=== PATIENT | female | born 1950 | race Caucasian/White ===

== ENCOUNTER → 2017-03-26 | Outpatient (CLI) | payer MEDICARE ==
[2017-03-26 15:37] LABS: Blood Urea Nitrogen 29 mg/dL (7-17); Non-African American GFR(MDRD) >60 (>60 ml/min/1.73 sqM)
--- NOTE | 2017-03-26 17:59 | CT ---
EXAMINATION TYPE: CT abdomen pelvis w con DATE OF EXAM: 03/26/2017 COMPARISON: 05/18/2016 HISTORY: Left lower and right upper abdominal pain with nausea x [address] DLP: 1306.00 mGycm. Automated exposure control for dose reduction was used. TECHNIQUE: Helical acquisition of images was performed from the lung bases through the pelvis. CONTRAST: Performed with Oral Contrast and with IV Contrast, patient injected with 100 mL of Omnipaqu e 300. FINDINGS: LUNG BASES: No significant abnormality is appreciated. LIVER/GB: No significant abnormality is appreciated. PANCREAS: No significant abnormality is seen. SPLEEN: No significant abnormality is seen. ADRENALS: No significant abnormality is seen. KIDNEYS: No significant abnormality is seen. FREE AIR: No free air is visualized. RETROPERITONEAL ADENOPATHY: None visualized REPRODUCTIVE ORGANS: No significant abnormality is seen URINARY BLADDER: No significant abnormality is seen. PELVIC ADENOPATHY: None visualized. OSSEOUS STRUCTURES: No significant abnormality is seen. BOWEL: No significant abnormality is seen. OTHER: Vasculature is unremarkable. IMPRESSION: NO ACUTE PROCESS.
== END | disposition home or self-care (01) ==
LOC: RADCTMAIN 15:04
PROVIDERS: ATTEND Physician Assistant
DX: R10.84 Generalized abdominal pain (principal); Z88.0 Allergy status to penicillin; Z88.1 Allergy status to other antibiotic agents
CPT/HCPCS: 82565; 84520; 74177; 36415; Q9967

== ENCOUNTER → 2017-07-12 | Outpatient (CLI) | payer MEDICARE ==
--- NOTE | 2017-07-16 08:52 | USB ---
Reason for exam: additional evaluation requested from abnormal screening. History: Patient is postmenopausal. US Breast Workup Limited RT Right breast ultrasound includes all four quadrants, the retroareolar region and axilla. Finding demonstrates no cystic or solid lesion seen. These results were verbally communicated with the patient and result sheet given to the patient on 07/12/17. ASSESSMENT: Negative, BI-RAD 1 RECOMMENDATION: Follow-up diagnostic mammogram of the right breast in 6 months.
== END ==
LOC: RADUSWWP 10:20
PROVIDERS: ATTEND Family Medicine
DX: R92.8 Other abnormal and inconclusive findings on diagnostic imaging of breast (principal)

== ENCOUNTER → 2017-08-22 | Outpatient (CLI) | payer MEDICARE ==
[2017-08-22 14:06] LABS: Basophils # (A) 0.1 k/uL (0-0.2); Basophils % (A) 1 %; Eosinophils # (A) 0.2 k/uL (0-0.7); Eosinophils % (A) 2 %; HCT 42.7 % (34.0-46.0); HGB 14.6 gm/dL (11.4-16.0); Lymphocytes # (A) 1.6 k/uL (1.0-4.8); Lymphocytes % (A) 23 %; MCH 29.9 pg (25.0-35.0); MCHC 34.2 g/dL (31.0-37.0); MCV 87.2 fL (80.0-100.0); Mean Platelet Volume 7.8; Monocytes # (A) 0.5 k/uL (0-1.0); Monocytes % (A) 6 %; Neutrophils # (A) 4.8 k/uL (1.3-7.7); Neutrophils % (A) 67 %; Platelet Count 209 k/uL (150-450); RBC 4.89 m/uL (3.80-5.40); RDW 15.8 % (11.5-15.5); WBC 7.2 k/uL (3.8-10.6)
[2017-08-22 15:05] LABS: Erythrocyte Sedimentation Rate 7 mm/hr (0-20)
== END | disposition home or self-care (01) ==
LOC: LABWHC1 13:32
PROVIDERS: ATTEND Physician Assistant
DX: D69.2 Other nonthrombocytopenic purpura (principal)
CPT/HCPCS: 36415; 85025; 85652

== ENCOUNTER → 2018-01-13 | Outpatient (CLI) | payer MEDICARE ==
--- NOTE | 2018-01-13 09:00 | MM ---
Reason for exam: follow-up at short interval from prior study. Last mammogram was performed 7 months ago. History: Patient is postmenopausal. Physical Findings: Nurse did not find any significant physical abnormalities on exam. MG 3D Diag Mammo W/Cad RT CC and MLO view(s) were taken of the right breast. Prior study comparison: June 26, 2017, bilateral MG 3d screening mammo w/cad. July 25, 2005, bilateral screening mammogram w/CAD. The breast tissue is extremely dense which could obscure a lesion on mammography. Focal asymmetry medial CC view is stable. No significant new findings when compared with previous films. These results were verbally communicated with the patient and result sheet given to the patient on 01/13/18. ASSESSMENT: Benign, BI-RAD 2 RECOMMENDATION: Return to routine screening mammogram schedule for both breasts. Back on schedule.
== END | disposition home or self-care (01) ==
LOC: RADMAMWWP 08:11
PROVIDERS: ATTEND Family Medicine
DX: R92.8 Other abnormal and inconclusive findings on diagnostic imaging of breast (principal)
CPT/HCPCS: 77065; G0279; 77061

== ENCOUNTER → 2018-07-01 | Outpatient (CLI) | payer MEDICARE ==
--- NOTE | 2018-07-02 14:25 | MM ---
Reason for exam: screening (asymptomatic). Last mammogram was performed 6 months ago. History: Patient is postmenopausal. Physical Findings: A clinical breast exam by your physician is recommended on an annual basis and results should be correlated with mammographic findings. MG 3D Screening Mammo W/Cad Bilateral CC and MLO view(s) were taken. Prior study comparison: January 13, 2018, right breast MG 3d diag mammo w/cad RT. June 26, 2017, bilateral MG 3d screening mammo w/cad. The breast tissue is heterogeneously dense. This may lower the sensitivity of mammography. No suspicious abnormality. No significant changes when compared with prior studies. ASSESSMENT: Negative, BI-RAD 1 RECOMMENDATION: Routine screening mammogram of both breasts in 1 year.
== END | disposition home or self-care (01) ==
LOC: RADMAMWWP 08:53
PROVIDERS: ATTEND Family Medicine
DX: Z12.31 Encounter for screening mammogram for malignant neoplasm of breast (principal)
CPT/HCPCS: 77063; 77067

== ENCOUNTER → 2019-04-21 | Outpatient (CLI) | payer MEDICARE ==
[2019-04-21 09:09] LABS: Basophils # (A) 0.1 k/uL (0-0.2); Basophils % (A) 1 %; Eosinophils # (A) 0.2 k/uL (0-0.7); Eosinophils % (A) 3 %; HCT 43.5 % (34.0-46.0); HGB 15.3 gm/dL (11.4-16.0); Lymphocytes # (A) 1.7 k/uL (1.0-4.8); Lymphocytes % (A) 26 %; MCH 29.6 pg (25.0-35.0); MCHC 35.2 g/dL (31.0-37.0); Mean Platelet Volume 7.4; Monocytes # (A) 0.4 k/uL (0-1.0); Monocytes % (A) 7 %; Neutrophils # (A) 4.1 k/uL (1.3-7.7); Neutrophils % (A) 62 %; Platelet Count 243 k/uL (150-450); RBC 5.18 m/uL (3.80-5.40); RDW 13.3 % (11.5-15.5); WBC 6.6 k/uL (3.8-10.6)
== END | disposition home or self-care (01) ==
LOC: LABWHC1 07:47
PROVIDERS: ATTEND Midwife
DX: I10 Essential (primary) hypertension (principal)
CPT/HCPCS: 36415; 84443; 85025

== ENCOUNTER 2019-05-27 10:43 | Observation (INO) | payer MEDICARE ==
[2019-05-27 10:48] VITALS: RESP 18
[2019-05-27] MEDS ORDERED: NITROGLYCERIN OINT 1 INCH/GM PACKET TOPICAL STA (11:25)
[2019-05-27] MEDS ORDERED: ASPIRIN 81 MG PO STA (11:25)
--- NOTE | 2019-05-27 11:33 | ED ---
General Adult HPI - General Chief complaint: Recheck/Abnormal Lab/Rx Stated complaint: Abnormal EKG Time Seen by Provider: 05/27/19 11:00 Source: patient, RN notes reviewed Mode of arrival: wheelchair Limitations: no limitations - History of Present Illness Initial comments: Is a 69-year-old female who presents emergency Department complaining of having left-sided chest discomfort for 2 weeks. Patient states the pain never goes away but it waxes and wanes. Patient describes the pain as pressure. Patient states the pain just on the whole left side of her chest down her left arm and up into her left side of her neck. Patient states she does have a history of atrial fibrillation and she was seen in the office and told to come to the emergency department today. Patient was told she was in atrial fibrillation however currently she isn't normal sinus. Patient denies any diaphoretic episodes. Patient states she does have some shortness of breath. Patient denies any recent fever chills or cough. Patient does states she is nauseated and has been for the last couple of weeks. Patient denies any vomiting patient denies any diarrhea per patient denies any abdominal pain. Patient states she has high blood pressure and high cholesterol and has a positive family history of heart disease. Patient denies any calf tenderness or leg swelling - Related Data Home Medications Medication Instructions Recorded Confirmed Albuterol Sulfate [Proair Hfa] 2 puff INHALATION RT-Q6H PRN 06/28/17 05/27/19 Fluticasone/Salmeterol [Advair 1 puff INHALATION RT-BID PRN 06/28/17 05/27/19 250-50 Diskus] Lisinopril-Hctz 20-25 mg 1 tab PO HS 06/28/17 05/27/19 [Zestoretic 20-25] Omeprazole 20 mg PO DAILY PRN 06/28/17 05/27/19 Docusate [Colace] 300 mg PO DAILY 05/27/19 05/27/19 Naproxen Sodium [Aleve] 220 mg PO DAILY PRN 05/27/19 05/27/19 Allergies Allergy/AdvReac Type Severity Reaction Status Date / Time levofloxacin [From Levaquin] Allergy Wheezing Verified 05/27/19 12:28 Penicillins Allergy Wheezing Verified 05/27/19 12:28 Review of Systems ROS Statement: Those systems with pertinent positive or pertinent negative responses have been documented in the HPI. ROS Other: All systems not noted in ROS Statement are negative. Past Medical History Past Medical History: Asthma, GI Bleed History of Any Multi-Drug Resistant Organisms: None Reported Past Surgical History: Hysterectomy Additional Past Surgical History / Comment(s): Hip replacement Past Psychological History: No Psychological Hx Reported Smoking Status: Never smoker Past Alcohol Use History: Occasional Past Drug Use History: None Reported General Exam - General Exam Comments Initial Comments: GENERAL: Patient is well-developed and well-nourished. Patient is nontoxic and well- hydrated and is in mild distress. ENT: Neck is soft and supple. No significant lymphadenopathy is noted. Oropharynx is clear. Moist mucous membranes. Neck has full range of motion without eliciting any pain. EYES: The sclera were anicteric and conjunctiva were pink and moist. Extraocular movements were intact and pupils were equal round and reactive to light. Eyelids were unremarkable. PULMONARY: Unlabored respirations. Good breath sounds bilaterally. No audible rales rhonchi or wheezing was noted. CARDIOVASCULAR: There is a regular rate and rhythm without any murmurs gallops or rubs. Femoral pulses are equal bilaterally ABDOMEN: Soft and nontender with normal bowel sounds. No palpable organomegaly was noted. There is no palpable pulsatile mass. SKIN: Skin is clear with no lesions or rashes and otherwise unremarkable. NEUROLOGIC: Patient is alert and oriented x3. Cranial nerves II through XII are grossly intact. Motor and sensory are also intact. Normal speech, volume and content. Symmetrical smile. MUSCULOSKELETAL: Normal extremities with adequate strength and full range of motion. No lower extremity swelling or edema. No calf tenderness. LYMPHATICS: No significant lymphadenopathy is noted PSYCHIATRIC: Normal psychiatric evaluation. Limitations: no limitations Course Vital Signs 05/27/19 10:45 Temperature 97.8 F Pulse Rate 78 Respiratory 18 Rate Blood Pressure 199/82 O2 Sat by Pulse 98 Oximetry Medical Decision Making - Medical Decision Making EKG shows normal sinus rhythm at 70 bpm [place] interval is on a 54 QRS is 84 QT interval 416 QTC is 474. Patient's EKG shows no ST segment elevation. Patient's chest x-ray showed no acute abnormality. Because the patient symptoms I started her on heparin. I spoke with Dr. Bedolla he agreed to admit the patient admitted the patient wrote admitting orders. I consult to cardiology. I continued heparin and aspirin and Nitropaste on the floor. - Lab Data Result diagrams: 05/27/19 11:10 05/27/19 11:10 Lab Results 05/27/19 05/27/19 05/27/19 Range/Units 11:10 11:10 11:10 WBC 7.2 (3.8-10.6) k/uL RBC 5.22 (3.80-5.40) m/uL Hgb 15.2 (11.4-16.0) gm/dL Hct 44.8 (34.0-46.0) % MCV 85.8 (80.0-100.0) fL MCH 29.1 (25.0-35.0) pg MCHC 34.0 (31.0-37.0) g/dL RDW 13.3 (11.5-15.5) % Plt Count 235 (150-450) k/uL Neutrophils % 74 % Lymphocytes % 17 % Monocytes % 5 % Eosinophils % 2 % Basophils % 1 % Neutrophils # 5.3 (1.3-7.7) k/uL Lymphocytes # 1.2 (1.0-4.8) k/uL Monocytes # 0.4 (0-1.0) k/uL Eosinophils # 0.2 (0-0.7) k/uL Basophils # 0.1 (0-0.2) k/uL PT 9.6 (9.0-12.0) sec INR 0.9 (<1.2) APTT 23.7 (22.0-30.0) sec Sodium 141 (137-145) mmol/L Potassium 3.7 (3.5-5.1) mmol/L Chloride 105 (98-107) mmol/L Carbon Dioxide 27 (22-30) mmol/L Anion Gap 9 mmol/L BUN 24 H (7-17) mg/dL Creatinine 0.88 (0.52-1.04) mg/dL Est GFR (CKD-EPI)AfAm 78 (>60 ml/min/1.73 sqM) Est GFR (CKD-EPI)NonAf 67 (>60 ml/min/1.73 sqM) Glucose 93 (74-99) mg/dL Calcium 9.9 (8.4-10.2) mg/dL Magnesium 2.2 (1.6-2.3) mg/dL Total Bilirubin 0.5 (0.2-1.3) mg/dL AST 20 (14-36) U/L ALT 33 (9-52) U/L Alkaline Phosphatase 111 (38-126) U/L Troponin I (0.000-0.034) ng/mL Total Protein 7.1 (6.3-8.2) g/dL Albumin 4.6 (3.5-5.0) g/dL 05/27/19 Range/Units 11:10 WBC (3.8-10.6) k/uL RBC (3.80-5.40) m/uL Hgb (11.4-16.0) gm/dL Hct (34.0-46.0) % MCV (80.0-100.0) fL MCH (25.0-35.0) pg MCHC (31.0-37.0) g/dL RDW (11.5-15.5) % Plt Count (150-450) k/uL Neutrophils % % Lymphocytes % % Monocytes % % Eosinophils % % Basophils % % Neutrophils # (1.3-7.7) k/uL Lymphocytes # (1.0-4.8) k/uL Monocytes # (0-1.0) k/uL Eosinophils # (0-0.7) k/uL Basophils # (0-0.2) k/uL PT (9.0-12.0) sec INR (<1.2) APTT (22.0-30.0) sec Sodium (137-145) mmol/L Potassium (3.5-5.1) mmol/L Chloride (98-107) mmol/L Carbon Dioxide (22-30) mmol/L Anion Gap mmol/L BUN (7-17) mg/dL Creatinine (0.52-1.04) mg/dL Est GFR (CKD-EPI)AfAm (>60 ml/min/1.73 sqM) Est GFR (CKD-EPI)NonAf (>60 ml/min/1.73 sqM) Glucose (74-99) mg/dL Calcium (8.4-10.2) mg/dL Magnesium (1.6-2.3) mg/dL Total Bilirubin (0.2-1.3) mg/dL AST (14-36) U/L ALT (9-52) U/L Alkaline Phosphatase (38-126) U/L Troponin I <0.012 (0.000-0.034) ng/mL Total Protein (6.3-8.2) g/dL Albumin (3.5-5.0) g/dL Critical Care Time Critical Care Time: Yes Total Critical Care Time: 35 Disposition Clinical Impression: Unstable angina Disposition: ADMITTED IP TO THIS HOSP Referrals: Rohith Bedolla MD [Primary Care Provider] - 1-2 days Time of Disposition: 13:06
[2019-05-27 11:42] LABS: Basophils # (A) 0.1 k/uL (0-0.2); Basophils % (A) 1 %; Eosinophils # (A) 0.2 k/uL (0-0.7); Eosinophils % (A) 2 %; HCT 44.8 % (34.0-46.0); HGB 15.2 gm/dL (11.4-16.0); Lymphocytes # (A) 1.2 k/uL (1.0-4.8); Lymphocytes % (A) 17 %; MCH 29.1 pg (25.0-35.0); MCV 85.8 fL (80.0-100.0); Mean Platelet Volume 7.3; Monocytes # (A) 0.4 k/uL (0-1.0); Monocytes % (A) 5 %; Neutrophils # (A) 5.3 k/uL (1.3-7.7); Neutrophils % (A) 74 %; Platelet Count 235 k/uL (150-450); RBC 5.22 m/uL (3.80-5.40); RDW 13.3 % (11.5-15.5); WBC 7.2 k/uL (3.8-10.6)
[2019-05-27 11:49] LABS: INR 0.9 (<1.2); Partial Thromboplastin Time 23.7 sec (22.0-30.0); Prothrombin Time 9.6 sec (9.0-12.0)
--- NOTE | 2019-05-27 11:53 | XR ---
EXAMINATION TYPE: XR chest 2V DATE OF EXAM: 05/27/2019 COMPARISON: August 09, 2014 HISTORY: Shortness of breath TECHNIQUE: Frontal and lateral views of the chest are obtained. FINDINGS: Scattered senescent parenchymal changes noted. Hyperinflation compatible with COPD. No evidence for infiltrate. No evidence for atelectasis. Heart size is stable. Mediastinal structures are stable and grossly unremarkable. No evidence for hilar prominence. Degenerative changes dorsal spine. IMPRESSION: 1. No evidence for acute pulmonary disease.
[2019-05-27 12:06] LABS: Albumin 4.6 g/dL (3.5-5.0); Calcium 9.9 mg/dL (8.4-10.2); Magnesium 2.2 mg/dL (1.6-2.3); Potassium 3.7 mmol/L (3.5-5.1); Total Bilirubin 0.5 mg/dL (0.2-1.3); Total Protein 7.1 g/dL (6.3-8.2)
[2019-05-27] MEDS ORDERED: HEPARIN SODIUM,PORCINE 5,000 UNIT/ML 1 ML VIAL IV ONE (13:04)
[2019-05-27] MEDS ORDERED: NITROGLYCERIN SL TABS 0.4 MG TAB SUBLINGUAL PRN (13:06)
[2019-05-27] MEDS ORDERED: HEPARIN SOD,PORK IN 0.45% NACL 25,000 UNIT in 0.45% NACL 1 250ML.BAG IV SCH (13:15)
[2019-05-27] MEDS ORDERED: ALBUTEROL NEBULIZED 2.5 MG/3 ML INHALATION PRN (15:28)
[2019-05-27] MEDS ORDERED: PANTOPRAZOLE 40 MG TABLET PO PRN (15:28)
[2019-05-27] MEDS: NITROGLYCERIN OINT 1 INCH/GM PACKET TOPICAL SCH (18:31)
[2019-05-27] MEDS ORDERED: LISINOPRIL-HCTZ 20-25 MG 1 EACH TAB PO SCH (21:00)
[2019-05-28] MEDS: NITROGLYCERIN OINT 1 INCH/GM PACKET TOPICAL SCH ×2 (00:29→05:24)
[2019-05-28 06:03] LABS: Cholesterol 212 mg/dL (<200); HDL Cholesterol 35 mg/dL (40-60); LDL Cholesterol,Calculated 145 mg/dL (0-99); Triglycerides 160 mg/dL (<150)
[2019-05-28] MEDS ORDERED: ASPIRIN 325 MG TAB PO SCH (09:00)
[2019-05-28] MEDS ORDERED: DOCUSATE 100 MG CAP PO SCH (09:00)
[2019-05-28] MEDS ORDERED: ASPIRIN 81 MG PO SCH (09:00)
[2019-05-28] MEDS ORDERED: ATORVASTATIN 40 MG TAB PO SCH (11:00)
--- NOTE | 2019-05-28 11:00 | P.CRDCN ---
History of Present Illness History of present illness: This is a pleasant 69-year-old female past medical history significant for hypertension, gastroesophageal reflux disease, dyslipidemia, asthma and family history of premature coronary artery disease and her father having his first RI in his 40s and ultimately causing his in his early 60s. She denies personal history of coronary artery disease. She has undergone a stress test in the past in 2016 which was negative for stress-induced ischemia. We have been asked to see her in consultation secondary to chest discomfort. She states for the previous 2 weeks she has been experiencing persistent discomfort and heaviness in the left precordial region with radiation to the left shoulder and down the left arm associated with nausea. Symptoms are not exacerbated by activity or exertion in fact she did some leaf blowing in the yard and her pain remained constant with no worsening. She denies associated shortness of breath, dizziness or palpitations. She initially presented to her primary care physician office yesterday regarding the nausea. She had an EKG performed at the office which was abnormal and was sent to the hospital for further evaluation. EKG upon arrival revealed sinus mechanism heart rate [address] changes in the inferior lateral leads. Compared to previous EKGs this is chronic. Chest x-ray is negative for acute cardiopulmonary process. Laboratory data reviewed, CBC unremarkable, cardiac enzymes negative 3, sodium 141, potassium 3.7, creatinine 0.88, magnesium 2.2, LDL 145, HDL 35 and total cholesterol 212. Current daily cardiac medications include lisinopril/HCTZ 20/25 mg daily. She is aware of her dyslipidemia and has been attempting lifestyle modifications. At the time of my exam: CONSTITUTIONAL: Denies fever. Denies chills. EYES: Denies blurred vision. Denies vision changes. Denies eye pain. EARS, NOSE, MOUTH & THROAT: Denies headache. Denies sore throat. Denies ear pain. CARDIOVASCULAR: Denies chest pain. Denies shortness of breath. Denies orthopnea. Denies PND. Denies palpitations. RESPIRATORY: Denies cough. GASTROINTESTINAL: Denies abdominal pain. Denies diarrhea. Denies constipation. Denies nausea. Denies vomiting. MUSCULOSKELETAL: Denies myalgias. INTEGUMENTARY: Denies pruitis. Denies rash. NEUROLOGIC: Denies numbness. Denies tingling. Denies weakness. PSYCHIATRIC: Denies anxiety. Denies depression. ENDOCRINE: Denies fatigue. Denies weight change. Denies polydipsia. Denies polyurina. GENITOURINARY: Denies burning, hematuria or urgency with micturation. HEMATOLOGIC: Denies history of anemia. Denies bleeding. Blood pressure 148/70 heart rate 61 afebrile maintaining oxygen saturation on r oom air GENERAL: This is a 69-year-old female in no apparent distress at the time of my examination. HEENT: Head is atraumatic, normocephalic. Pupils are equal, round. Sclerae anicteric. Conjunctivae are clear. Mucous membranes of the mouth are moist. Neck is supple. There is no jugular venous distention. No carotid bruit is heard. LUNGS: Clear to auscultation no wheezes, rales or rhonchi. No chest wall tenderness is noted on palpation or with deep breathing. HEART: Regular rate and rhythm without murmurs, rubs or gallops. S1 and S2 heard. ABDOMEN: Soft, nontender. Bowel sounds are heard. No organomegaly noted. EXTREMITIES: No evidence of peripheral edema and no calf tenderness noted. VASCULAR: Radial and dorsalis pedis pulses palpated, no evidence of clubbing. NEUROLOGIC: Patient is awake, alert and oriented x3. ASSESSMENT Chest pain, atypical for angina. An acute coronary event has been ruled out. Hypertension Dyslipidemia Family history of premature coronary artery disease PLAN An acute coronary event has been ruled out. Discontinue heparin infusion and Nitropaste. Obtain 2-D echocardiogram and Doppler study to assess cardiac structure and function. Recommend Cardiolite stress test to assess for reversible cardiac ischemia. Initiate on atorvastatin 40 mg daily for target LDL of less than 100. If stress test is abnormal we will consider coronary angiography. Consider imaging of the abdomen if stress test is normal to assess nausea. Thank you kindly for this consultation. Nurse Practitioner note has been reviewed, I agree with a documented findings and plan of care. Patient was seen and examined. Past Medical History Past Medical History: Asthma, GERD/Reflux, GI Bleed, Hearing Disorder / Deafness, Hyperlipidemia, Hypertension, Pneumonia Additional Past Medical History / Comment(s): Pt not on rx for cholesterol yet, pneumonia as a child, lower GI bleed twice, gastritis, duodenitis, hiatal hernia, colitis, constipation, UTIs, tinnitis L ear. History of Any Multi-Drug Resistant Organisms: None Reported Past Surgical History: Hysterectomy, Orthopedic Surgery Additional Past Surgical History / Comment(s): R hip partial replacement, EGD, colonoscopies Past Anesthesia/Blood Transfusion Reactions: No Reported Reaction Past Psychological History: No Psychological Hx Reported Additional Psychological History / Comment(s): Pt resides with her spouse. She is independent. Smoking Status: Never smoker Past Alcohol Use History: Occasional Past Drug Use History: None Reported - Past Family History Father Family Medical History: Myocardial Infarction (RI) Additional Family Medical History / Comment(s): Father had 3 MIs. First RI while in his 40s and his last RI at the age of 61 from which he . Mother Family Medical History: Cancer Additional Family Medical History / Comment(s): Mother of liver cancer at the age of 51yrs. Medications and Allergies Home Medications Medication Instructions Recorded Confirmed Type Albuterol Sulfate [Proair Hfa] 2 puff INHALATION RT-Q6H PRN 06/28/17 05/27/19 History Fluticasone/Salmeterol [Advair 1 puff INHALATION RT-BID PRN 06/28/17 05/27/19 History 250-50 Diskus] Lisinopril-Hctz 20-25 mg 1 tab PO HS 06/28/17 05/27/19 History [Zestoretic 20-25] Omeprazole 20 mg PO DAILY PRN 06/28/17 05/27/19 History Docusate [Colace] 300 mg PO DAILY 05/27/19 05/27/19 History Naproxen Sodium [Aleve] 220 mg PO DAILY PRN 05/27/19 05/27/19 History Allergies Allergy/AdvReac Type Severity Reaction Status Date / Time levofloxacin [From Levaquin] Allergy Wheezing Verified 05/27/19 12:28 Penicillins Allergy Wheezing Verified 05/27/19 12:28 Physical Exam Vitals: Vital Signs Temp Pulse Pulse Resp BP BP Pulse Ox 05/28/19 08:00 61 18 05/28/19 07:30 97.7 F 61 18 148/70 98 05/28/19 04:00 98.2 F 63 18 120/69 97 05/28/19 00:00 97.6 F 67 18 114/58 94 L 05/27/19 19:54 98.4 F 71 18 119/57 95 05/27/19 19:45 71 16 05/27/19 16:00 70 18 144/74 05/27/19 14:25 97.8 F 71 18 187/73 97 05/27/19 14:24 18 05/27/19 13:27 74 18 143/76 96 Intake and Output 05/27/19 05/28/19 05/28/19 22:59 06:59 14:59 Intake Total 240 161.026 Balance 240 161.026 Intake: Intake, IV Titration 161.026 Amount Heparin Sod,Pork in 0.45% 161.026 NaCl 25,000 unit In 0.45 % NaCl 1 250ml.bag @ 12 UNITS/KG/HR 9.362 mls/hr IV .Q24H ELISHA Rx#: [id number] Oral 240 Other: Voiding Method Toilet Toilet Toilet # Voids 1 Results 05/27/19 11:10 05/27/19 11:10 Cardiac Enzymes 05/27/19 05/27/19 05/27/19 Range/Units 11:10 11:10 19:23 AST 20 (14-36) U/L Troponin I <0.012 <0.012 (0.000-0.034) ng/mL 05/27/19 Range/Units 22:36 AST (14-36) U/L Troponin I <0.012 (0.000-0.034) ng/mL Coagulation 05/27/19 05/27/19 05/28/19 Range/Units 11:10 19:23 05:45 PT 9.6 (9.0-12.0) sec APTT 23.7 49.4 H 42.2 H (22.0-30.0) sec Lipids 05/28/19 Range/Units 05:45 Triglycerides 160 H (<150) mg/dL Cholesterol 212 H (<200) mg/dL HDL Cholesterol 35 L (40-60) mg/dL CBC 05/27/19 Range/Units 11:10 WBC 7.2 (3.8-10.6) k/uL RBC 5.22 (3.80-5.40) m/uL Hgb 15.2 (11.4-16.0) gm/dL Hct 44.8 (34.0-46.0) % Plt Count 235 (150-450) k/uL Comprehensive Metabolic Panel 05/27/19 Range/Units 11:10 Sodium 141 (137-145) mmol/L Potassium 3.7 (3.5-5.1) mmol/L Chloride 105 (98-107) mmol/L Carbon Dioxide 27 (22-30) mmol/L BUN 24 H (7-17) mg/dL Creatinine 0.88 (0.52-1.04) mg/dL Glucose 93 (74-99) mg/dL Calcium 9.9 (8.4-10.2) mg/dL AST 20 (14-36) U/L ALT 33 (9-52) U/L Alkaline Phosphatase 111 (38-126) U/L Total Protein 7.1 (6.3-8.2) g/dL Albumin 4.6 (3.5-5.0) g/dL Current Medications Generic Name Dose Route Start Last Admin Trade Name Freq PRN Reason Stop Dose Admin Albuterol Sulfate 2.5 mg 05/27/19 15:28 Ventolin Nebulized INHALATION RT-Q6H PRN Shortness Of Breath Aspirin 81 mg 05/28/19 09:00 Aspirin PO DAILY [facility] Atorvastatin Calcium 40 mg 05/28/19 11:00 Lipitor PO DAILY [facility] Docusate Sodium 300 mg 05/28/19 09:00 Colace PO DAILY [facility] Lisinopril/HCTZ 1 each 05/27/19 21:00 05/27/19 21:01 Zestoretic 20-25 PO 1 each HS ELISHA Administration Nitroglycerin 0.4 mg 05/27/19 13:06 Nitrostat SUBLINGUAL Q5M PRN Chest Pain Pantoprazole Sodium 40 mg 05/27/19 15:28 Protonix PO DAILY PRN GERD Intake and Output 05/27/19 05/28/19 05/28/19 22:59 06:59 14:59 Intake Total 240 161.026 Balance 240 161.026 Intake: Intake, IV Titration 161.026 Amount Heparin Sod,Pork in 0.45% 161.026 NaCl 25,000 unit In 0.45 % NaCl 1 250ml.bag @ 12 UNITS/KG/HR 9.362 mls/hr IV .Q24H ELISHA Rx#: [id number] Oral 240 Other: Voiding Method Toilet Toilet Toilet # Voids 1 05/27/19 11:10 05/27/19 11:10
[2019-05-28 12:25] VITALS: BP 153/87; PULSE 87; TEMP 98.3
--- NOTE | 2019-05-28 12:36 | NM ---
EXAMINATION TYPE: NM stress cardiolite complete DATE OF EXAM: 05/28/2019 COMPARISON: NONE HISTORY: Chest pain TECHNIQUE: After the intravenous administration of 10.81 mCi Tc 99m Sestamibi - Rest images obtained 45 minutes post injection. The patient exercised using a LISA protocol and 1 minute prior to peak exercise was injected with 26.8 mCi Tc 99m Sestamibi - Stress images obtained 20 minutes post inject ion. FINDINGS: Targeted heart rate was achieved during performance of the study. Review of stress and rest SPECT jacek ges demonstrates no distinct perfusion abnormality. Gated analysis shows normal wall motion with an estimated left ventricular ejection fraction of 69 %. TID is within normal limits calculated at 0.78. IMPRESSION: No scintigraphic evidence for reversible ischemia
--- NOTE | 2019-05-28 12:44 | P.HPIM ---
History of Present Illness 69-year-old female was sent from her physician's office with complaints of intermittent chest pain for 2 weeks with nausea. Radiates to the left arm. Patient does admit history of IBS states she's had trouble with constipation of late Review of Systems Cardiovascular: Reports chest pain Gastrointestinal: Reports constipation, Reports nausea Past Medical History Past Medical History: Asthma, GERD/Reflux, GI Bleed, Hearing Disorder / Deafness, Hyperlipidemia, Hypertension, Pneumonia Additional Past Medical History / Comment(s): Pt not on rx for cholesterol yet, pneumonia as a child, lower GI bleed twice, gastritis, duodenitis, hiatal hernia, colitis, constipation, UTIs, tinnitis L ear. History of Any Multi-Drug Resistant Organisms: None Reported Past Surgical History: Hysterectomy, Orthopedic Surgery Additional Past Surgical History / Comment(s): R hip partial replacement, EGD, colonoscopies Past Anesthesia/Blood Transfusion Reactions: No Reported Reaction Past Psychological History: No Psychological Hx Reported Additional Psychological History / Comment(s): Pt resides with her spouse. She is independent. Smoking Status: Never smoker Past Alcohol Use History: Occasional Past Drug Use History: None Reported - Past Family History Father Family Medical History: Myocardial Infarction ([place]) Additional Family Medical History / Comment(s): Father had 3 MIs. First [place] while in his 40s and his last [place] at the age of 61 from which he . Mother Family Medical History: Cancer Additional Family Medical History / Comment(s): Mother of liver cancer at the age of 51yrs. Medications and Allergies Home Medications Medication Instructions Recorded Confirmed Type Albuterol Sulfate [Proair Hfa] 2 puff INHALATION RT-Q6H PRN 06/28/17 05/27/19 History Fluticasone/Salmeterol [Advair 1 puff INHALATION RT-BID PRN 06/28/17 05/27/19 History 250-50 Diskus] Lisinopril-Hctz 20-25 mg 1 tab PO HS 06/28/17 05/27/19 History [Zestoretic 20-25] Omeprazole 20 mg PO DAILY PRN 06/28/17 05/27/19 History Docusate [Colace] 300 mg PO DAILY 05/27/19 05/27/19 History Naproxen Sodium [Aleve] 220 mg PO DAILY PRN 05/27/19 05/27/19 History Allergies Allergy/AdvReac Type Severity Reaction Status Date / Time levofloxacin [From Levaquin] Allergy Wheezing Verified 05/27/19 12:28 Penicillins Allergy Wheezing Verified 05/27/19 12:28 Physical Exam Vitals: Vital Signs Temp Pulse Pulse Resp BP BP Pulse Ox 05/28/19 12:24 98.3 F 87 18 153/87 96 05/28/19 08:00 61 18 05/28/19 07:30 97.7 F 61 18 148/70 98 05/28/19 04:00 98.2 F 63 18 120/69 97 05/28/19 00:00 97.6 F 67 18 114/58 94 L 05/27/19 19:54 98.4 F 71 18 119/57 95 05/27/19 19:45 71 16 05/27/19 16:00 70 18 144/74 05/27/19 14:25 97.8 F 71 18 187/73 97 05/27/19 14:24 18 05/27/19 13:27 74 18 143/76 96 Intake and Output 05/27/19 05/28/19 05/28/19 22:59 06:59 14:59 Intake Total 240 161.026 Balance 240 161.026 Intake: Intake, IV Titration 161.026 Amount Heparin Sod,Pork in 0.45% 161.026 NaCl 25,000 unit In 0.45 % NaCl 1 250ml.bag @ 12 UNITS/KG/HR 9.362 mls/hr IV .Q24H ELISHA Rx#: [id number] Oral 240 Other: Voiding Method Toilet Toilet Toilet # Voids 1 Weight 78.018 kg - Constitutional General appearance: mild distress - EENT Eyes: PERRLA Ears: bilateral: normal - Neck Neck: normal ROM - Respiratory Respiratory: negative: CTA - Cardiovascular Rhythm: regular - Gastrointestinal General gastrointestinal: soft Localized gastrointestinal: tender: LLQ - Integumentary Integumentary: normal - Neurologic Neurologic: CNII-XII intact - Musculoskeletal Musculoskeletal: gait normal - Psychiatric Psychiatric: A&O x's 3, appropriate affect, intact judgment & insight Results CBC & Chem 7: 05/27/19 11:10 05/27/19 11:10 Labs: Abnormal Lab Results - Last 24 Hours (Table) 05/27/19 05/28/19 05/28/19 Range/Units 19:23 05:45 05:45 APTT 49.4 H 42.2 H (22.0-30.0) sec Triglycerides 160 H (<150) mg/dL Cholesterol 212 H (<200) mg/dL LDL Cholesterol, Calc 145 H (0-99) mg/dL HDL Cholesterol 35 L (40-60) mg/dL Chest x-ray: report reviewed Thrombosis Risk Factor Assmnt - Choose All That Apply Any of the Below Risk Factors Present?: Yes Other Risk Factors: Yes Each Risk Factor Represents 2 Points: Age 61-74 years Other congenital or acquired thrombophilia - If yes, enter type in comment: No Thrombosis Risk Factor Assessment Total Risk Factor Score: 2 Thrombosis Risk Factor Assessment Level: Low Risk Assessment and Plan Plan: Assessment Chest pain troponins negative 3 Abdominal pain with nausea History of asthma/COPD Hypertension GERD Hyperlipidemia IVS Hiatal hernia Plan Patient has had stress test awaiting results if negative will do outpatient treatment for abdominal pain
[2019-05-28 13:34] VITALS: BMI 25.4
--- NOTE | 2019-05-28 13:38 | ECHOF ---
Referral Reason:cp MEASUREMENTS -------- HEIGHT: 175.3 cm WEIGHT: 78.0 kg BP: 148/70 RVIDd: 3.0 cm (< 3.3) IVSd: 1.4 cm (0.6 - 1.1) LVIDd: 4.7 cm (3.9 - 5.3) LVPWd: 1.1 cm (0.6 - 1.1) IVSs: 1.7 cm LVIDs: 2.7 cm LVPWs: 1.9 cm LAESV Index (A-L): 24.18 ml/m Ao Diam: 2.5 cm (2.0 - 3.7) AV Cusp: 1.6 cm (1.5 - 2.6) MV EXCURSION: 12.108 mm (> 18.000) MV EF SLOPE: 65 mm/s (70 - 150) EPSS: 0.5 cm MV E Adnois: 0.52 m/s MV DecT: 224 ms MV A Adonis: 0.73 m/s MV E/A Ratio: 0.71 AR PHT: 415 ms RAP: 5.00 mmHg RVSP: 20.63 mmHg FINDINGS -------- Sinus rhythm. This was a technically adequate study. The left ventricular size is normal. There is mild concentric left ventricular hypertrophy. Overa ll left ventricular systolic function is normal with, an EF between 55 - 60 %. The diastolic fillin g pattern is normal for the age of the patient 11.91. The right ventricle is normal in size. The left atrial size is normal. The right atrial size is normal. Interatrial and interventricular septum intact. The aortic valve was not well visualized. There is mild aortic valve sclerosis. There is moderate -to-severe aortic regurgitation. The aortic pressure half-time by doppler is 415ms. No mitral regurgitation. Trace tricuspid regurgitation present. There is no evidence of pulmonary hypertension. The right ventricular systolic pressure, as measured by Doppler, is 20.63mmHg. The pulmonic valve was not well visualized. There is no pulmonic regurgitation present. The aortic root size is normal. There is no pericardial effusion. CONCLUSIONS -------- 1. Sinus rhythm. 2. This was a technically adequate study. 3. The left ventricular size is normal. 4. There is mild concentric left ventricular hypertrophy. 5. Overall left ventricular systolic function is normal with, an EF between 55 - 60 %. 6. The diastolic filling pattern is normal for the age of the patient 11.91 7. The right ventricle is normal in size. 8. The left atrial size is normal. 9. The right atrial size is normal. 10. Interatrial and interventricular septum intact. 11. The aortic valve was not well visualized. 12. There is mild aortic valve sclerosis. 13. There is [id number] aortic regurgitation. 14. The aortic pressure half-time by doppler is 415ms. 15. No mitral regurgitation. 16. Trace tricuspid regurgitation present. 17. There is no evidence of pulmonary hypertension. 18. The right ventricular systolic pressure, as measured by Doppler, is 20.63mmHg. 19. The pulmonic valve was not well visualized. 20. There is no pulmonic regurgitation present. 21. The aortic root size is normal. 22. There is no pericardial effusion. NOCTURNIST PHYSICIAN: Lottie Krause RDCS
--- NOTE | 2019-05-28 13:44 | EST ---
EXERCISE STRESS DATE OF SERVICE: May 28, 2019 AGE: 69 SEX: Female HT: 69" WT: 172 pounds PROTOCOL: Isidro Cardiolite STAGE: III DURATION OF EXERCISE: 8 minutes HEART RATE REST: 76 BLOOD PRESSURE REST: 160/74 MAXIMUM HEART RATE ACHIEVED: 130 MAXIMUM BLOOD PRESSURE: 178/76 85% MPHR: 128 100% MPHR: 150 METS: 8.2 INDICATIONS: Chest pain. CLINICAL INFORMATION: STRESS DATA: Heart rate 76, pressure is 160/74 mmHg. The patient exercised on the treadmill according to Isidro protocol for a total of 8 minutes and achieved 8.2 METs. Max heart rate was 130, which is about 86% of maximum predicted heart rate. Maximum blood pressure was 178/76 mmHg. Clinically, the patient did not have any symptoms of chest pain or chest discomfort. The EKG showed about [address]-segment changes. CONCLUSION: 1. Excellent exercise tolerance. 2. Mild EKG changes in response to exercise with about [address]-segment depression. 3. Please follow up on the Cardiolite portion on separate report from Radiology Department. MMODL / IJN: [id number] /
--- NOTE | 2019-05-28 17:45 | P.DS ---
Providers Date of admission: 05/27/19 13:06 Expected date of discharge: 05/28/19 Attending physician: Roihth Bedolla Consults: 05/27/19 13:06 Consult Physician Urgent Consulting Provider: [facility] Consult Reason/Comments: Unstable angina Do you want consulting provider notified?: Yes Primary care physician: Rohith Bedolla [facility] Course: 69-year-old female was sent to the emergency room from [facility]] for complaints of chest pain. EKG in office atrial flutter. Patient was evaluated by cardiology stress test negative for ischemic disease. Patient was complaining of chronic low abdominal pain offered CT the abdomen patient declined at this time we'll discuss at follow-up visit Assessment Chest pain negative troponin negative stress test History of asthma/COPD Hypertension GERD Hyperlipidemia IBS Hiatal hernia Plan Follow-up with family physician Dr. Rohith Bedolla and cardiology Plan - Discharge Summary Discharge Rx Participant: No New Discharge Prescriptions: New Aspirin 81 mg PO DAILY chew Atorvastatin [Lipitor] 40 mg PO DAILY #30 tab Ondansetron HCl [Zofran] 4 mg PO TID PRN #21 tablet PRN Reason: Nausea Continue Omeprazole 20 mg PO DAILY PRN PRN Reason: GERD Albuterol Sulfate [Proair Hfa] 2 puff INHALATION RT-Q6H PRN PRN Reason: Shortness Of Breath Lisinopril-Hctz 20-25 mg [Zestoretic 20-25] 1 tab PO HS Fluticasone/Salmeterol [Advair 250-50 Diskus] 1 puff INHALATION RT-BID PRN PRN Reason: Shortness Of Breath Docusate [Colace] 300 mg PO DAILY Discontinued Naproxen Sodium [Aleve] 220 mg PO DAILY PRN PRN Reason: Pain Discharge Medication List Albuterol Sulfate [Proair Hfa] 2 puff INHALATION RT-Q6H PRN 06/28/17 [History] Fluticasone/Salmeterol [Advair 250-50 Diskus] 1 puff INHALATION RT-BID PRN 06/28/17 [History] Lisinopril-Hctz 20-25 mg [Zestoretic 20-25] 1 tab PO HS 06/28/17 [History] Omeprazole 20 mg PO DAILY PRN 06/28/17 [History] Docusate [Colace] 300 mg PO DAILY 11/06/19 [History] Aspirin 81 mg PO DAILY chew 05/28/19 [Rx] Atorvastatin [Lipitor] 40 mg PO DAILY #30 tab 05/28/19 [Rx] Ondansetron HCl [Zofran] 4 mg PO TID PRN #21 tablet 05/28/19 [Rx] Follow up Appointment(s)/Referral(s): Rohith Bedolla MD [Primary Care Provider] - 1-2 days Feroz Berg MD [STAFF PHYSICIAN] - 2 Weeks Discharge Disposition: HOME SELF-CARE
== END 2019-05-28 15:05 | disposition home or self-care (01) ==
LOC: EC 10:43 → 1SOBS 13:06
PROVIDERS: ADMIT Family Medicine; ATTEND Family Medicine
DX: R07.89 Other chest pain (principal); J44.9 Chronic obstructive pulmonary disease, unspecified; I48.91 Unspecified atrial fibrillation; I48.92 Unspecified atrial flutter; I10 Essential (primary) hypertension; K21.9 Gastro-esophageal reflux disease without esophagitis; E78.5 Hyperlipidemia, unspecified; G89.29 Other chronic pain; R11.0 Nausea; R10.30 Lower abdominal pain, unspecified; K44.9 Diaphragmatic hernia without obstruction or gangrene; K58.1 Irritable bowel syndrome with constipation; E78.00 Pure hypercholesterolemia, unspecified; H91.90 Unspecified hearing loss, unspecified ear; H93.12 Tinnitus, left ear; Z79.1 Long term (current) use of non-steroidal anti-inflammatories (NSAID); Z79.51 Long term (current) use of inhaled steroids; Z79.899 Other long term (current) drug therapy; Z88.0 Allergy status to penicillin; Z88.1 Allergy status to other antibiotic agents; Z87.440 Personal history of urinary (tract) infections; Z87.01 Personal history of pneumonia (recurrent); Z96.641 Presence of right artificial hip joint; Z87.19 Personal history of other diseases of the digestive system; Z90.710 Acquired absence of both cervix and uterus; Z82.49 Family history of ischemic heart disease and other diseases of the circulatory system; Z80.0 Family history of malignant neoplasm of digestive organs
CPT/HCPCS: 96366 ×2; 96376; 96365; 99291; 36415; 93005; 93017; 93306; 80061; 80053; 83735; 84484; 85025; 85610; 85730 ×2; 71046; 78452; G0378 ×2; A9500; J1644 ×2

== ENCOUNTER → 2020-05-26 | Outpatient (CLI) | payer MEDICARE ==
--- NOTE | 2020-05-26 15:29 | CT ---
EXAMINATION TYPE: CT abdomen pelvis wo/w con DATE OF EXAM: 05/26/2020 COMPARISON: 06/28/2017 HISTORY: 70-year-old female Abdominal pain, nausea TECHNIQUE: Contiguous axial scanning of the abdomen and pelvis before and after administration of 100 ml Isovue 300 IV contrast. Delayed images through the kidneys and coronal/sagittal reconstructions performed. CT DLP: 1280.4 mGycm Automated exposure control for dose reduction was used. FINDINGS: Heart normal size without pericardial effusion. Mild dependent atelectasis in the visualized lung bas es. No pleural effusion. Small hiatal hernia. No focal liver lesion or biliary ductal dilatation. Portal venous system is patent. Gallbladder, adrenal glands, right kidney, spleen, and pancreas appear within normal limits. Cortical hypodensities within the left kidney measuring up to 1.3 cm, too small for accurate CT ministerio cterization, likely cortical cysts. No dilated small bowel, free fluid, or free air. No mesenteric or retroperitoneal lymphadenopathy. Ileocecal junction is located in the right-sided pelvis. Scattered mild to moderate stool. No pericol onic inflammatory change. Bladder is urine distended. Uterus surgically absent. Neither ovary is visualized. Prominent metal ar tifact limiting visualization of portions of the pelvis. No abnormal fluid collection identified in t he pelvis or pelvic lymphadenopathy. Bones: Right hip total arthroplasty. Moderate degenerative change left hip. Moderate to advanced dege nerative disc disease throughout the lumbar spine along with hypertrophic facet arthropathy and grade 1 anterolisthesis at L3-L4. IMPRESSION: SMALL HIATAL HERNIA, SMALL CORTICAL CYSTS IN THE LEFT KIDNEY MEASURING UP TO 1.3 CM, AND MILD TO MODE RATE STOOL. NO ACUTE INFLAMMATORY PROCESS IDENTIFIED IN THE ABDOMEN OR PELVIS TO EXPLAIN THE PATIENT' S SYMPTOMS.
== END | disposition home or self-care (01) ==
LOC: RADCTMAIN 13:04
PROVIDERS: ATTEND Nurse Practitioner
DX: K44.9 Diaphragmatic hernia without obstruction or gangrene (principal); N28.1 Cyst of kidney, acquired
CPT/HCPCS: 74178; Q9967

== ENCOUNTER → 2021-02-14 | Outpatient (CLI) | payer MEDICARE ==
--- NOTE | 2021-02-14 15:00 | XR ---
EXAMINATION TYPE: XR hand complete RT DATE OF EXAM: 02/14/2021 CLINICAL HISTORY: pain TECHNIQUE: Frontal, lateral and oblique images of the right hand are obtained. COMPARISON: None. FINDINGS: There is no acute fracture/dislocation evident. The joint spaces appear within normal limi ts. The overlying soft tissue appears unremarkable. IMPRESSION: There is no acute fracture or dislocation ICD 10 NO FRACTURE, INITIAL EVALUATION
== END | disposition home or self-care (01) ==
LOC: RADXRMAIN 14:37
PROVIDERS: ATTEND Nurse Practitioner
DX: M79.641 Pain in right hand (principal)

== ENCOUNTER → 2022-01-01 | Outpatient (CLI) | payer MEDICARE ==
--- NOTE | 2022-01-02 11:56 | XR ---
EXAMINATION TYPE: XR chest 2V DATE OF EXAM: 01/01/2022 COMPARISON: 05/27/2019 HISTORY: 71-year-old female J45.901, acute asthma, cough TECHNIQUE: Frontal and lateral views FINDINGS: The cardiomediastinal silhouette, aorta, and pulmonary vasculature are within normal limits. Mild hyp erinflation. Focal patchy left basilar opacity. No other consolidation or pleural effusion. IMPRESSION: 1. Mild hyperinflation may relate to a depth of inspiration or underlying emphysema. Clinically corre late. 2. Some focal patchy inferior lingular opacity. Correlate to exclude early pneumonia. Follow-up after treatment to assess for clearance.
== END | disposition home or self-care (01) ==
LOC: RADXRMAIN 16:02
PROVIDERS: ATTEND Nurse Practitioner Family
DX: R91.8 Other nonspecific abnormal finding of lung field (principal)
CPT/HCPCS: 71046

== ENCOUNTER 2022-01-16 11:44 | Inpatient (IN) | payer MEDICARE ==
[2022-01-16] MEDS ORDERED: RX INFO: IV CONTRAST WAS GIVEN 1 EACH MISC MISCELLANE PRN (13:58)
[2022-01-16] MEDS ORDERED: IPRATROPIUM-ALBUTEROL 3 ML NEB INHALATION STA (13:59)
--- NOTE | 2022-01-16 14:17 | ED ---
SOB HPI - General Chief Complaint: Shortness of Breath Stated Complaint: Dehydration Time Seen by Provider: 01/16/22 13:37 Source: patient, family, RN notes reviewed Mode of arrival: ambulatory Limitations: no limitations - History of Present Illness Initial Comments: This is a 71-year-old female who presents to the emergency department for coughing and shortness of breath. She was sent by Dr. Bedolla's office for further evaluation and request for a CT scan. States that for the last month she has had shortness of breath and coughing. She has received 2 courses of Prednisone and a steroid injection as well as 2 courses of antibiotics. One of the antibiotics was doxycycline, however she acquired a rash and hives when taking this. She was then put on a different antibiotic, however she cannot recall which one this was. None of these treatments improved her symptoms. She did just get a nebulizer and has been using albuterol treatments. Believes that this may have helped her symptoms to some extent, however she continues to have coughing and shortness of breath. Believes that this may be a severe asthma exacerbation. Additionally, as a result of all the coughing, she feels very fatigued and worn out. She is also unable to eat or drink, as the coughing has now caused her to have a lot of pain in her throat. Patient refusing COVID and influenza testing because she does not believe that they are real. Denies any fevers, chills, chest pain, palpitations, abdominal pain, nausea, vomiting, diarrhea, back pain, or headaches. MD Complaint: shortness of breath, cough Onset/Timin -: month(s) Known History Of: asthma - Related Data Home Medications Medication Instructions Recorded Confirmed Albuterol Sulfate [Proair Hfa] 2 puff INHALATION RT-Q6H PRN 06/28/17 05/27/19 Fluticasone Propion/Salmeterol 1 puff INHALATION RT-BID PRN 06/28/17 05/27/19 [Advair 250-50 Diskus] Lisinopril-Hctz 20-25 mg 1 tab PO HS 06/28/17 05/27/19 [Zestoretic 20-25] Omeprazole 20 mg PO DAILY PRN 06/28/17 05/27/19 Docusate [Colace] 300 mg PO DAILY 05/27/19 05/27/19 Previous Rx's Medication Instructions Recorded Aspirin 81 mg PO DAILY chew 05/28/19 Atorvastatin [Lipitor] 40 mg PO DAILY #30 tab 05/28/19 ondansetron HCL [Zofran] 4 mg PO TID PRN #21 tablet 05/28/19 Allergies Allergy/AdvReac Type Severity Reaction Status Date / Time doxycycline Allergy Rash/Hives Verified 01/16/22 11:57 levofloxacin [From Levaquin] Allergy Wheezing Verified 01/16/22 11:57 Penicillins Allergy Wheezing Verified 01/16/22 11:57 Review of Systems ROS Statement: Those systems with pertinent positive or pertinent negative responses have been documented in the HPI. ROS Other: All systems not noted in ROS Statement are negative. Past Medical History Past Medical History: Asthma, GERD/Reflux, GI Bleed, Hearing Disorder / Deafness, Hyperlipidemia, Hypertension, Pneumonia Additional Past Medical History / Comment(s): Pt not on rx for cholesterol yet, pneumonia as a child, lower GI bleed twice, gastritis, duodenitis, hiatal hernia, colitis, constipation, UTIs, tinnitis L ear. History of Any Multi-Drug Resistant Organisms: None Reported Past Surgical History: Hysterectomy, Orthopedic Surgery Additional Past Surgical History / Comment(s): R hip partial replacement, EGD, colonoscopies Past Anesthesia/Blood Transfusion Reactions: No Reported Reaction Past Psychological History: No Psychological Hx Reported Past Alcohol Use History: Occasional Past Drug Use History: None Reported - Past Family History Father Family Medical History: Myocardial Infarction ([place]) Additional Family Medical History / Comment(s): Father had 3 MIs. First [place] while in his 40s and his last [place] at the age of 61 from which he . Mother Family Medical History: Cancer Additional Family Medical History / Comment(s): Mother of liver cancer at the age of 51yrs. General Exam Limitations: no limitations General appearance: alert, in no apparent distress Head exam: Present: atraumatic, normocephalic, normal inspection Neck exam: Present: normal inspection. Absent: tenderness, meningismus, lymphadenopathy Respiratory exam: Present: decreased breath sounds, prolonged expiratory Cardiovascular Exam: Present: regular rate, normal rhythm, normal heart sounds. Absent: systolic murmur, diastolic murmur, rubs, gallop, clicks Neurological exam: Present: alert, oriented X3, CN II-XII intact Psychiatric exam: Present: normal affect, normal mood Skin exam: Present: warm, dry, intact, normal color. Absent: rash Course Vital Signs 01/16/22 01/16/22 01/16/22 11:51 18:08 19:16 Temperature 98.0 F Pulse Rate 101 H 92 Respiratory 22 18 Rate Blood Pressure 139/71 O2 Sat by Pulse 97 Oximetry 01/16/22 01/16/22 19:33 21:29 Temperature Pulse Rate 104 H 118 H Respiratory 22 Rate Blood Pressure 154/73 O2 Sat by Pulse 92 L Oximetry Medical Decision Making - Medical Decision Making This is a 71-year-old female who presents to the emergency department for possible asthma exacerbation. CT of the chest and abdomen with contrast was obtained. The abdomen was added on to the computed tomography scan, as the patient had markedly elevated liver enzymes on lab work. CT of the chest revealed bilateral lower lobe pulmonary infiltrates and atelectasis significantly increased compared with prior exam. No abdominal abnormalities were identified. Respiratory therapy did a DuoNeb treatment and peak flow testing. The peak flow testing prior to DuoNeb was 170 and afterwards it was 16 0, however the patient had difficulty with this due to coughing. She had increased air movement following the DuoNeb and did produce a significant amount of sputum. Her coughing did not improve. I reevaluated her after 30-40 minutes, however her peak flow remained around 170. Patient given IV fluids, Zofran, and Pepcid for dehydration and nausea/chest burning from all of the coughing. Ceftriaxone and Zithromax administered for possible pneumonia and IV Decadron administered as well. Patient reevaluated and found to have oxygen saturation of 88%. Given the decreasing oxygen saturation, progressive symptoms, and relentless cough, will admit patient for further management. Pulmonology consult placed per admitting team's request. Of note, blood cultures were not ordered, as the patient has already been taking antibiotics. US gallbladder ordered for elevated LFTs. Patient refusing COVID and influenza testing because she does not believe that they are real. This case was discussed in detail with the attending ED physician. Presentation, findings, and treatment plan discussed in detail as well. - Lab Data Result diagrams: 01/16/22 15:30 01/16/22 15:30 Lab Results 06/28/22 06/28/22 06/28/22 Range/Units 15:30 15:30 15:30 WBC 14.4 H (3.8-10.6) k/uL RBC 4.95 (3.80-5.40) m/uL Hgb 14.5 (11.4-16.0) gm/dL Hct 43.7 (34.0-46.0) % MCV 88.3 (80.0-100.0) fL MCH 29.2 (25.0-35.0) pg MCHC 33.1 (31.0-37.0) g/dL RDW 13.4 (11.5-15.5) % Plt Count 237 (150-450) k/uL MPV 8.2 Neutrophils % 89 % Lymphocytes % 4 % Monocytes % 4 % Eosinophils % 1 % Basophils % 1 % Neutrophils # 12.9 H (1.3-7.7) k/uL Lymphocytes # 0.6 L (1.0-4.8) k/uL Monocytes # 0.6 (0-1.0) k/uL Eosinophils # 0.2 (0-0.7) k/uL Basophils # 0.1 (0-0.2) k/uL PT (9.0-12.0) sec INR (<1.2) APTT (22.0-30.0) sec Sodium 134 L (137-145) mmol/L Potassium 3.7 (3.5-5.1) mmol/L Chloride 98 (98-107) mmol/L Carbon Dioxide 26 (22-30) mmol/L Anion Gap 10 mmol/L BUN 15 (7-17) mg/dL Creatinine 0.68 (0.52-1.04) mg/dL Est GFR (CKD-EPI)AfAm >90 (>60 ml/min/1.73 sqM) Est GFR (CKD-EPI)NonAf 88 (>60 ml/min/1.73 sqM) Glucose 106 H (74-99) mg/dL Plasma Lactic Acid Pedro 1.4 (0.7-2.0) mmol/L Calcium 9.1 (8.4-10.2) mg/dL Total Bilirubin 2.1 H (0.2-1.3) mg/dL AST 176 H (14-36) U/L ALT 202 H (4-34) U/L Alkaline Phosphatase 218 H (38-126) U/L Troponin I (0.000-0.034) ng/mL NT-Pro-B Natriuret Pep pg/mL Total Protein 6.8 (6.3-8.2) g/dL Albumin 4.1 (3.5-5.0) g/dL Amylase (30-110) U/L Lipase (23-300) U/L 01/16/22 01/16/22 01/16/22 Range/Units 15:30 15:30 16:03 WBC (3.8-10.6) k/uL RBC (3.80-5.40) m/uL Hgb (11.4-16.0) gm/dL Hct (34.0-46.0) % MCV (80.0-100.0) fL MCH (25.0-35.0) pg MCHC (31.0-37.0) g/dL RDW (11.5-15.5) % Plt Count (150-450) k/uL MPV Neutrophils % % Lymphocytes % % Monocytes % % Eosinophils % % Basophils % % Neutrophils # (1.3-7.7) k/uL Lymphocytes # (1.0-4.8) k/uL Monocytes # (0-1.0) k/uL Eosinophils # (0-0.7) k/uL Basophils # (0-0.2) k/uL PT 10.0 (9.0-12.0) sec INR 0.9 (<1.2) APTT 21.0 L (22.0-30.0) sec Sodium (137-145) mmol/L Potassium (3.5-5.1) mmol/L Chloride (98-107) mmol/L Carbon Dioxide (22-30) mmol/L Anion Gap mmol/L BUN (7-17) mg/dL Creatinine (0.52-1.04) mg/dL Est GFR (CKD-EPI)AfAm (>60 ml/min/1.73 sqM) Est GFR (CKD-EPI)NonAf (>60 ml/min/1.73 sqM) Glucose (74-99) mg/dL Plasma Lactic Acid Pedro (0.7-2.0) mmol/L Calcium (8.4-10.2) mg/dL Total Bilirubin (0.2-1.3) mg/dL AST (14-36) U/L ALT (4-34) U/L Alkaline Phosphatase (38-126) U/L Troponin I <0.012 (0.000-0.034) ng/mL NT-Pro-B Natriuret Pep 471 pg/mL Total Protein (6.3-8.2) g/dL Albumin (3.5-5.0) g/dL Amylase (30-110) U/L Lipase (23-300) U/L 01/16/22 01/16/22 Range/Units 21:42 21:42 WBC (3.8-10.6) k/uL RBC (3.80-5.40) m/uL Hgb (11.4-16.0) gm/dL Hct (34.0-46.0) % MCV (80.0-100.0) fL MCH (25.0-35.0) pg MCHC (31.0-37.0) g/dL RDW (11.5-15.5) % Plt Count (150-450) k/uL MPV Neutrophils % % Lymphocytes % % Monocytes % % Eosinophils % % Basophils % % Neutrophils # (1.3-7.7) k/uL Lymphocytes # (1.0-4.8) k/uL Monocytes # (0-1.0) k/uL Eosinophils # (0-0.7) k/uL Basophils # (0-0.2) k/uL PT (9.0-12.0) sec INR (<1.2) APTT (22.0-30.0) sec Sodium (137-145) mmol/L Potassium (3.5-5.1) mmol/L Chloride (98-107) mmol/L Carbon Dioxide (22-30) mmol/L Anion Gap mmol/L BUN (7-17) mg/dL Creatinine (0.52-1.04) mg/dL Est GFR (CKD-EPI)AfAm (>60 ml/min/1.73 sqM) Est GFR (CKD-EPI)NonAf (>60 ml/min/1.73 sqM) Glucose (74-99) mg/dL Plasma Lactic Acid Pedro 1.4 (0.7-2.0) mmol/L Calcium (8.4-10.2) mg/dL Total Bilirubin (0.2-1.3) mg/dL AST (14-36) U/L ALT (4-34) U/L Alkaline Phosphatase (38-126) U/L Troponin I (0.000-0.034) ng/mL NT-Pro-B Natriuret Pep pg/mL Total Protein (6.3-8.2) g/dL Albumin (3.5-5.0) g/dL Amylase 31 (30-110) U/L Lipase 33 (23-300) U/L - EKG Data EKG Comments: Sinus tachycardia with frequent supraventricular premature complexes. Ventricular rate 120 beats per minute, NM interval 159 ms, QRS duration 85 ms, QTC 298 ms. - Radiology Data Radiology results: report reviewed, image reviewed Disposition Clinical Impression: Asthma exacerbation, Pneumonia Disposition: ADMITTED IP TO THIS HOSP
[2022-01-16 15:47] LABS: Basophils # (A) 0.1 k/uL (0-0.2); Basophils % (A) 1 %; Eosinophils # (A) 0.2 k/uL (0-0.7); Eosinophils % (A) 1 %; HCT 43.7 % (34.0-46.0); HGB 14.5 gm/dL (11.4-16.0); Lymphocytes # (A) 0.6 k/uL (1.0-4.8); Lymphocytes % (A) 4 %; MCH 29.2 pg (25.0-35.0); MCHC 33.1 g/dL (31.0-37.0); MCV 88.3 fL (80.0-100.0); Mean Platelet Volume 8.2; Monocytes # (A) 0.6 k/uL (0-1.0); Monocytes % (A) 4 %; Neutrophils # (A) 12.9 k/uL (1.3-7.7); Neutrophils % (A) 89 %; Platelet Count 237 k/uL (150-450); RBC 4.95 m/uL (3.80-5.40); RDW 13.4 % (11.5-15.5); WBC 14.4 k/uL (3.8-10.6)
[2022-01-16 16:03] LABS: ALT 202 U/L (4-34); AST 176 U/L (14-36); African American GFR (CKD) >90 (>60 ml/min/1.73 sqM); Albumin 4.1 g/dL (3.5-5.0); Alkaline Phosphatase 218 U/L (38-126); Anion Gap 10 mmol/L; Blood Urea Nitrogen 15 mg/dL (7-17); Calcium 9.1 mg/dL (8.4-10.2); Carbon Dioxide 26 mmol/L (22-30); Chloride 98 mmol/L (98-107); Glucose 106 mg/dL (74-99); Non-African American GFR(CKD) 88 (>60 ml/min/1.73 sqM); Sodium 134 mmol/L (137-145); Total Bilirubin 2.1 mg/dL (0.2-1.3); Total Protein 6.8 g/dL (6.3-8.2)
[2022-01-16 16:06] LABS: Potassium 3.7 mmol/L (3.5-5.1)
--- NOTE | 2022-01-16 17:46 | CT ---
EXAMINATION TYPE: CT chest abdomen w con DATE OF EXAM: 01/16/2022 COMPARISON: CT abdomen 05/26/2020 HISTORY: Cough and epigastric pain CT DLP: 715.3 mGycm Automated exposure control for dose reduction was used. CONTRAST: Performed with IV Contrast, patient injected with 100 mL of Isovue 300. Images obtained from the thoracic inlet to the iliac crests with IV contrast. There is some patchy infiltrates and atelectasis in the lower lobes bilaterally and more on the right side. There is mild pleural thickening right posterior lung base. No mediastinal adenopathy. Thoraci c aorta is intact. There are no hilar masses. There is 1.5 cm right bronchial lymph node. Heart size is normal. No pericardial effusion. Thoracic aorta is intact. Liver spleen and stomach pancreas gallbladder appear intact. The bile ducts are not dilated. There is no adrenal mass. Kidneys of normal size and contour. There is 2 cm cortical cyst posterior l eft kidney. No hydronephrosis. Ureters are not dilated. There is no retroperitoneal adenopathy. Delay ed images show normal renal excretion. There is no sign of ascites or free air. No sign of a bowel obstruction. No mesenteric edema. The tho racic spine is intact. No compression fracture. No evidence of rib fracture. IMPRESSION: There is bilateral lower lobe pulmonary infiltrates and atelectasis which are significantly increased compared to old exam. No suspicious pulmonary mass. This is likely inflammatory. No acute abnormality in the abdomen.
[2022-01-16] MEDS ORDERED: AZITHROMYCIN 500 MG TAB PO STA (18:30)
[2022-01-16] MEDS ORDERED: cefTRIAXone 1,000 MG VIAL (IM USE) IM STA (18:30)
[2022-01-16 18:44] LABS: INR 0.9 (<1.2)
[2022-01-16] MEDS ORDERED: ONDANSETRON 4 MG/2 ML VIAL IVP STA (18:54)
[2022-01-16] MEDS ORDERED: SODIUM CHLORIDE 0.9% 1,000 ML IV STA (18:54)
[2022-01-16] MEDS ORDERED: DEXAMETHASONE SOD PHOSPHATE 10 MG/ML 1 ML VIAL IVP STA (18:55)
[2022-01-16] MEDS ORDERED: cefTRIAXone IN SWFI 1,000 MG/10 ML SYRINGE IVP STA (19:33)
[2022-01-16] MEDS ORDERED: FAMOTIDINE 20 MG/2 ML VIAL IV STA (20:25)
[2022-01-16] MEDS ORDERED: MORPHINE SULFATE 2 MG/ML SYRINGE IVP STA (21:05)
[2022-01-16] MEDS ORDERED: HYDROcodone/APAP 5-325MG 1 EACH TAB PO PRN (21:14)
[2022-01-16] MEDS ORDERED: NALOXONE 0.4 MG/ML 1 ML VIAL IV PRN (21:14)
[2022-01-16] MEDS ORDERED: oxyCODONE-APAP 5-325MG 1 EACH TAB PO PRN (21:14)
[2022-01-16] MEDS ORDERED: ACETAMINOPHEN TAB 325 MG TAB PO PRN (21:14)
[2022-01-16] MEDS ORDERED: PNEUMONIA PROTOCOL UTILIZED 1 EACH MISC PO PRN (21:16)
[2022-01-16 21:59] LABS: Amylase 31 U/L (30-110); Lipase 33 U/L (23-300)
--- NOTE | 2022-01-16 22:19 | US ---
EXAMINATION TYPE: US gallbladder DATE OF EXAM: 01/16/2022 COMPARISON: CT 2019 CLINICAL HISTORY: elevated LFTs, epigastric pain. Elevated LFTs EXAM MEASUREMENTS: Liver Length: 21.2 cm Gallbladder Wall: 0.21 cm CBD: 0.41 cm Right Kidney: 9.3 x 3.6 x 4.6 cm Pancreas: Limited visualization Liver: Hepatomegaly Gallbladder: Multiple echogenic foci with shadowing seen Evidence for sonographic Brock's sign: no CBD: wnl Right Kidney: Limited visualization IMPRESSION: There are numerous gallstones. There is hepatomegaly. No dilated ducts. No ascites.
[2022-01-16] MEDS: guaiFENesin 600 MG TABLET.ER PO SCH (22:40)
[2022-01-16] MEDS: SODIUM CHLORIDE 0.9% 1,000 ML IV SCH (22:42)
[2022-01-17] MEDS: IPRATROPIUM-ALBUTEROL 3 ML NEB INHALATION SCH ×4 (07:47→19:51)
[2022-01-17] MEDS: guaiFENesin 600 MG TABLET.ER PO SCH ×2 (08:30→22:31)
[2022-01-17] MEDS ORDERED: IPRATROPIUM-ALBUTEROL 3 ML NEB INHALATION PRN (13:47)
[2022-01-17] MEDS: methylPREDNISolone SOD SUCCI 125 MG/2 ML VIAL IV SCH ×2 (14:35→16:58)
--- NOTE | 2022-01-17 15:50 | P.CNPUL ---
History of Present Illness Consult date: 01/17/22 Reason for consult: dyspnea History of present illness: 72-year-old female patient with mild intermittent bronchial asthma, maintained only on albuterol rescue inhaler on an as-needed basis, presented to the hospital because of persistent pneumonia, failing outpatient treatment . The patient was symptomatic approximately 4 weeks ago. She was having increased cough, congestion, some mucus production and shortness of breath. She was initially given doxycycline by the primary care and she ended up having a rash. Subsequently the antibiotics was switched to another antibiotic and the patient was given 2 rounds of steroid taper. She continued to be symptomatic and for that reason she ended up presenting to the hospital. She has not been vaccinated for COVID 19. No hemoptysis. No pleurisy. No fever. No recurrent pneumonias. She can't recall a child with episodes of pneumonia without any complications. CAT scan of the chest showed some airspace disease along bases bilaterally. Patient was hospitalized and the patient is currently on a combination of Rocephin and Zithromax. Her white cell count of 14.4 with a hemoglobin of 14.5. Coagulation profile is within normal. Electrodes are all within normal limits. LFTs were normal with elevated and ultrasound the gallbladder was done and showed some gallstones. No evidence of any acute cholecystitis. The patient was found to have numerous gallstones with some hepatomegaly. Biliary duct with essentially within normal limits. CAT scan of the chest showed airspace disease in lung bases bilaterally. No suspicious pulmonary masses. The patient had no other significant intra-abdominal abnormalities. Currently on a combination of Rocephin and Zithromax. Review of Systems Constitutional: Denies chills, Denies fever Eyes: denies as per HPI, denies blurred vision, denies bulging eye, denies decreased vision, denies diplopia, denies discharge, denies dry eye, denies irritation, denies itching, denies pain, denies photophobia, denies loss of peripheral vision, denies loss of vision, denies tunnel vision/blind spots Ears: deny: decreased hearing, ear discharge, earache, tinnitus Ears, nose, mouth and throat: Reports as per HPI Breasts: absent: as per HPI, change in shape, gynecomastia, masses, nipple discharge, pain, skin changes, swelling Cardiovascular: Reports decreased exercise tolerance, Reports dyspnea on exertion Respiratory: Reports cough, Reports dyspnea, Reports respiratory infections, Reports wheezing Gastrointestinal: Reports as per HPI Genitourinary: Reports as per HPI Menstruation: Reports as per HPI Musculoskeletal: Reports as per HPI Musculoskeletal: absent: ankle pain, ankle stiffness, ankle swelling, as per HPI, elbow pain, elbow stiffness, elbow swelling, foot pain, foot stiffness, foot swelling, hand pain, hand stiffness, hand swelling, hip pain, hip stiffness, hip swelling, knee pain, knee stiffness, knee swelling, shoulder pain, shoulder stiffness, shoulder swelling, wrist pain, wrist stiffness, wrist swelling Integumentary: Reports as per HPI Neurological: Reports as per HPI Psychiatric: Reports as per HPI Endocrine: Reports as per HPI Hematologic/Lymphatic: Reports as per HPI Past Medical History Past Medical History: Asthma, GERD/Reflux, GI Bleed, Hearing Disorder / Deafness, Hyperlipidemia, Hypertension, Osteoarthritis (OA), Pneumonia Additional Past Medical History / Comment(s): neumonia as a child, lower GI bleed twice, gastritis, duodenitis, hiatal hernia, colitis, constipation, UTIs, tinnitis L ear. History of Any Multi-Drug Resistant Organisms: None Reported Past Surgical History: Hysterectomy, Orthopedic Surgery Additional Past Surgical History / Comment(s): R hip partial replacement, EGD, colonoscopies Past Anesthesia/Blood Transfusion Reactions: No Reported Reaction Past Psychological History: No Psychological Hx Reported Past Alcohol Use History: Occasional Past Drug Use History: None Reported - Past Family History Father Family Medical History: Myocardial Infarction ([place]) Additional Family Medical History / Comment(s): Father had 3 MIs. First [place] while in his 40s and his last MA at the age of 61 from which he . Mother Family Medical History: Cancer Additional Family Medical History / Comment(s): Mother of liver cancer at the age of 51yrs. Medications and Allergies Home Medications Medication Instructions Recorded Confirmed Type Albuterol Sulfate [Proair Hfa] 1 puff INHALATION RT-Q4H PRN 06/28/17 01/17/22 History Albuterol Nebulized [Ventolin 2.5 mg INHALATION RT-QID 01/17/22 01/17/22 History Nebulized] Fluticasone Furoate [Arnuity 1 puff INHALATION RT-DAILY 01/17/22 01/17/22 History Ellipta] Metoprolol Succinate [Metoprolol 25 mg PO DAILY@1200 06/29/22 06/29/22 History Succinate ER] amLODIPine [Norvasc] 10 mg PO DAILY@1200 01/17/22 01/17/22 History hydroCHLOROthiazide 25 mg PO DAILY 01/17/22 01/17/22 History lisinopriL [Zestril] 20 mg PO BID 01/17/22 01/17/22 History Allergies Allergy/AdvReac Type Severity Reaction Status Date / Time doxycycline Allergy Rash/Hives Verified 01/17/22 08:28 levofloxacin [From Levaquin] Allergy Wheezing Verified 01/17/22 08:28 Penicillins Allergy Wheezing Verified 01/17/22 08:28 Physical Exam Vitals: Vital Signs Temp Pulse Pulse Resp BP BP Pulse Ox 01/17/22 14:42 78 18 01/17/22 11:40 76 18 01/17/22 11:30 98.4 F 84 17 131/86 95 01/17/22 11:28 87 18 01/17/22 08:00 97.7 F 86 16 124/76 96 01/17/22 07:55 77 16 01/17/22 07:47 74 16 95 01/17/22 06:19 98.1 F 77 20 121/84 94 L 01/17/22 02:55 98 F 83 18 151/84 95 01/16/22 21:29 118 H 22 154/73 92 L 01/16/22 19:33 104 H 01/16/22 19:16 92 01/16/22 18:08 18 Calm and comfortable and the patient is currently on oxygen at 3 L, breathing is nonlabored. The patient is having frequent episodes of cough Head exam was generally normal. There was no scleral icterus or corneal arcus. Mucous membranes were moist. Neck was supple and without jugular venous distension, thyromegaly, or carotid bruits. Carotids were easily palpable bilaterally. There was no adenopathy. Lungs sounds are diminished and the patient has some limited active limited expiratory wheezes bilaterally Cardiac exam revealed the PMI to be normally situated and sized. The rhythm was regular and no extrasystoles were noted during several minutes of auscultation. The first and second heart sounds were normal and physiologic splitting of the second heart sound was noted. There were no murmurs, rubs, clicks, or gallops. Abdominal exam revealed normal bowel sounds. The abdomen was soft, non-tender, and without masses, organomegaly, or appreciable enlargement of the abdominal aorta. Examination of the extremities revealed easily palpable radial, femoral and pedal pulses. There was no cyanosis, clubbing or edema. Examination of the skin revealed no evidence of significant rashes, suspicious appearing nevi or other concerning lesions. Neurologically, the patient is awake and alert and the patient does not have any focal neurological deficit. Cranial nerves are essentially intact. Results - Laboratory Findings CBC and BMP: 01/16/22 15:30 01/16/22 15:30 PT/INR, D-dimer PT 10.0 sec (9.0-12.0) 01/16/22 16:03 INR 0.9 (<1.2) 01/16/22 16:03 Abnormal lab findings: Abnormal Labs 01/16/22 01/16/22 01/16/22 15:30 15:30 16:03 WBC 14.4 H Neutrophils # 12.9 H Lymphocytes # 0.6 L APTT 21.0 L Sodium 134 L Glucose 106 H Total Bilirubin 2.1 H AST 176 H ALT 202 H Alkaline Phosphatase 218 H - Diagnostic Findings Chest x-ray: image reviewed CT scan - chest: image reviewed Assessment and Plan Plan: Bilateral lower lobe pneumonia, subacute, failed outpatient treatment, coming in for inpatient therapy Acute hypoxic respiratory failure currently on 3 L of nasal cannula Shortness of breath secondary to above Hypertension Mild intermittent bronchial asthma possibly with some exacerbation secondary to above Hyperlipidemia Impaired hearing History of GI bleed related to duodenitis and gastritis and the patient is also known to have hiatal hernia Plan Check pro calcitonin level Check sputum Gram stain and culture Check blood cultures Check a Legionella urine antigen Check COVID 19 by PCR Check influenza screen Agree with the current antibiotic coverage Agree with the steroids We'll continue to follow
[2022-01-17] MEDS: SODIUM CHLORIDE 0.9% 1,000 ML IV SCH (16:06)
[2022-01-17] MEDS: AZITHROMYCIN 500 MG in SODIUM CHLORIDE 0.9% 250 ML IVPB SCH (16:07)
--- NOTE | 2022-01-17 16:54 | HP ---
HISTORY AND PHYSICAL DATE OF SERVICE: 01/17/2022 CHIEF COMPLAINTS: Shortness of breath. HISTORY OF PRESENT ILLNESS: This 71-year-old woman with a past medical history of multiple medical problems including asthma, history of GERD, being followed by Dr. Rohith Bedolla, not feeling well for the past several months. The patient had multiple courses of antibiotics and steroids also. Because of the lack of improvement, patient came to [facility] for further evaluation and treatment. The patient had abdominal CT scan. The patient also complains of cough and sputum also. CT scan reviewed showed bilateral lower lobe pulmonary infiltrate and atelectasis which was significantly increased and a gallbladder ultrasound was also done which showed numerous gallstones and also splenomegaly. There is no history of fever, rigors, chills at this time. PAST MEDICAL HISTORY: History of asthma, hypertension, hyperlipidemia. Otherwise, reviewed. HOME MEDICATIONS: Reviewed and include: Zestril 20 mg b.i.d. Dose and rest of the medications reviewed. ALLERGIES: DOXYCYCLINE, LEVAQUIN, AND PENICILLIN. FAMILY HISTORY: History of myocardial infarction. SOCIAL HISTORY: No history of smoking. Occasional alcohol intake. REVIEW OF SYSTEMS: Fourteen point review of systems is negative except as mentioned earlier. PHYSICAL EXAMINATION: Pulse is 84, blood pressure 130/86, respirations 17. HEENT: Conjunctivae normal. NECK: No JVD. CARDIOVASCULAR: S1, S2 muffled. RESPIRATIONS: Breath sounds diminished in the bases. Bilateral scattered rhonchi and expiratory wheezing and crackles. ABDOMEN: Soft. LEGS: No edema. No swelling. NERVOUS SYSTEM: Higher functions as mentioned earlier. Moves all four limbs. No focal deficits. LYMPHATICS: No lymph nodes palpable in the neck, axillae or groin. SKIN: No ulcers, no rashes and no bleeding. JOINTS: No active deforming arthropathy. LABS: WBC 14.4. Other labs are noted. ASSESSMENT: 1. Acute bilateral pneumonia with failure of outpatient treatment. 2. History of asthma, acute exacerbation. 3. History of gastroesophageal reflux disease. 4. Hypertension. 5. Hyperlipidemia. 6. Multiple medical issues. RECOMMENDATIONS AND DISCUSSION: In this 71-year-old woman who presented with multiple complex medical issues, we will monitor the patient closely. I would recommend intensive bronchodilators, antibiotics and as well as Pulmonary consultation. DVT prophylaxis. See orders for details. Otherwise, prognosis guarded because of multiple complex medical issues. Further recommendations to follow. A copy of dictation being forwarded to Dr. Rohith Bedolla who is the primary physician. MMODL / IJN: [id number] /
[2022-01-17] MEDS: BUDESONIDE 0.5 MG/2 ML NEBU INHALATION SCH (19:51)
[2022-01-17] MEDS: MONTELUKAST 10 MG TAB PO SCH (22:31)
[2022-01-17] MEDS: lisinopriL 20 MG TAB PO SCH (22:31)
[2022-01-17] MEDS: HEPARIN SODIUM,PORCINE/PF 5,000 UNIT/0.5 ML SYRINGE SQ SCH (22:31)
[2022-01-18] MEDS: methylPREDNISolone SOD SUCCI 125 MG/2 ML VIAL IV SCH ×4 (00:14→18:02)
[2022-01-18] MEDS: SODIUM CHLORIDE 0.9% 1,000 ML IV SCH (00:16)
[2022-01-18] MEDS: BUDESONIDE 0.5 MG/2 ML NEBU INHALATION SCH ×2 (08:50→20:04)
[2022-01-18] MEDS: IPRATROPIUM-ALBUTEROL 3 ML NEB INHALATION SCH ×4 (08:50→20:04)
[2022-01-18] MEDS: hydroCHLOROthiazide 25 MG TAB PO SCH (09:17)
[2022-01-18] MEDS: lisinopriL 20 MG TAB PO SCH ×2 (09:17→21:22)
[2022-01-18] MEDS: guaiFENesin 600 MG TABLET.ER PO SCH ×2 (09:17→21:22)
[2022-01-18] MEDS: HEPARIN SODIUM,PORCINE/PF 5,000 UNIT/0.5 ML SYRINGE SQ SCH ×2 (09:17→21:22)
[2022-01-18] MEDS: AZITHROMYCIN 500 MG in SODIUM CHLORIDE 0.9% 250 ML IVPB SCH (10:09)
[2022-01-18] MEDS: METOPROLOL SUCCINATE (ER) 25 MG TAB.ER.24H PO SCH (12:04)
[2022-01-18] MEDS: amLODIPine 10 MG TAB PO SCH (12:04)
[2022-01-18] MEDS: PROMETHAZINE 25 MG TAB PO PRN ×2 (12:12→18:03)
--- NOTE | 2022-01-18 15:26 | P.PN ---
Subjective Progress Note Date: 01/18/22 72-year-old female patient with mild intermittent bronchial asthma, maintained only on albuterol rescue inhaler on an as-needed basis, presented to the hospital because of persistent pneumonia, failing outpatient treatment . The patient was symptomatic approximately 4 weeks ago. She was having increased cough, congestion, some mucus production and shortness of breath. She was initially given doxycycline by the primary care and she ended up having a rash. Subsequently the antibiotics was switched to another antibiotic and the patient was given 2 rounds of steroid taper. She continued to be symptomatic and for that reason she ended up presenting to the hospital. She has not been vaccinated for COVID 19. No hemoptysis. No pleurisy. No fever. No recurrent pneumonias. She can't recall a child with episodes of pneumonia without any complications. CAT scan of the chest showed some airspace disease along bases bilaterally. Patient was hospitalized and the patient is currently on a co mbination of Rocephin and Zithromax. Her white cell count of 14.4 with a hemoglobin of 14.5. Coagulation profile is within normal. Electrodes are all within normal limits. LFTs were normal with elevated and ultrasound the gallbladder was done and showed some gallstones. No evidence of any acute cholecystitis. The patient was found to have numerous gallstones with some hepatomegaly. Biliary duct with essentially within normal limits. CAT scan of the chest showed airspace disease in lung bases bilaterally. No suspicious pulmonary masses. The patient had no other significant intra-abdominal abnormalities. Currently on a combination of Rocephin and Zithromax. 01/18/2022, the patient remains on the same treatment. The patient is on DuoNeb neb regimens [id number] and the patient is also on examination Rocephin and Zithromax. Still having coughing spells which are quite extensive. There is improvement compared to yesterday. Note that the viral screen was negative. The patient had a negative COVID 19 testing. Influenza A and B were also negative.RSV was negative. Legionella urine antigen was also negative. The pro calcitonin level was 0.26. Objective - Vital Signs Vital signs: Vital Signs Temp 98.7 F 01/18/22 14:00 Pulse 94 01/18/22 14:00 Resp 18 01/18/22 14:00 BP 139/71 01/18/22 14:00 Pulse Ox 90 L 01/18/22 14:00 FiO2 Intake & Output 01/17/22 01/18/22 01/18/22 18:59 06:59 18:59 Intake Total 150 750 Balance 150 750 Weight 76.657 kg Intake: IV 150 Sodium Chloride 0.9% 1, 150 000 ml @ 75 mls/hr IV . [id number] [facility] Rx#:[id number] Intake, IV Titration 750 Amount Sodium Chloride 0.9% 1, 750 000 ml @ 75 mls/hr IV . [id number] [facility] Rx#:[id number] Other: Voiding Method Toilet # Voids 2 - Exam Calm and comfortable and the patient is currently on oxygen at 3 L, breathing is nonlabored. The patient is having frequent episodes of cough Head exam was generally normal. There was no scleral icterus or corneal arcus. Mucous membranes were moist. Neck was supple and without jugular venous distension, thyromegaly, or carotid bruits. Carotids were easily palpable bilaterally. There was no adenopathy. Lungs sounds are diminished and the patient has some limited active limited expiratory wheezes bilaterally Cardiac exam revealed the PMI to be normally situated and sized. The rhythm was regular and no extrasystoles were noted during several minutes of auscultation. The first and second heart sounds were normal and physiologic splitting of the second heart sound was noted. There were no murmurs, rubs, clicks, or gallops. Abdominal exam revealed normal bowel sounds. The abdomen was soft, non-tender, and without masses, organomegaly, or appreciable enlargement of the abdominal aorta. Examination of the extremities revealed easily palpable radial, femoral and pedal pulses. There was no cyanosis, clubbing or edema. Examination of the skin revealed no evidence of significant rashes, suspicious appearing nevi or other concerning lesions. Neurologically, the patient is awake and alert and the patient does not have any focal neurological deficit. Cranial nerves are essentially intact. - Labs CBC & Chem 7: 01/16/22 15:30 01/16/22 15:30 Labs: Abnormal Lab Results - Last 24 Hours (Table) 01/17/22 Range/Units 15:58 Procalcitonin 0.26 H (0.02-0.09) ng/mL Microbiology - Last 24 Hours (Table) 01/16/22 19:34 Gram Stain - Final Sputum Sputum Culture - Final Haemophilus influenzae Assessment and Plan Plan: Bilateral lower lobe pneumonia, subacute, failed outpatient treatment, coming in for inpatient therapy, currently being treated on an inpatient basis with broad- spectrum antibiotics and steroids. Limited improvement since yesterday. Acute hypoxic respiratory failure currently on 3 L of nasal cannula Shortness of breath secondary to above Hypertension Mild intermittent bronchial asthma possibly with some exacerbation secondary to above Hyperlipidemia Impaired hearing History of GI bleed related to duodenitis and gastritis and the patient is also known to have hiatal hernia Plan Check pro calcitonin level, level is at 0.26 Check sputum Gram stain and culture, pending Check blood cultures, pending Check a Legionella urine antigenit was negative Check COVID 19 by PCR The rest of the viral screen was also negative Continue same antibiotic coverage and the steroids and add promethazine for cough and will continue to follow.
--- NOTE | 2022-01-18 18:11 | PN ---
PROGRESS NOTE DATE OF SERVICE: 01/18/2022 This 71-year-old woman who was admitted with bilateral pneumonia with failure of outpatient treatment and asthma, acute exacerbation, is being closely monitored. Patient is on steroids and IV antibiotics also. Pulmonary is following the patient closely. No chest pain. No palpitation. PHYSICAL EXAMINATION: Pulse is 95, blood pressure is 138/89, respiration 20, pulse ox 92% on 3 L. HEENT: Conjunctivae normal. NECK: No jugular venous distention. CARDIOVASCULAR: S1, S2 muffled. RESPIRATION: Breath sounds diminished at the bases. A few scattered rhonchi and crackles at the bases. ABDOMEN: Soft. NERVOUS SYSTEM: No focal deficit. LABS: Reviewed. Procalcitonin is 0.26. WBC 14.4. Rest of the labs are noted. AST, ALT slightly elevated. ASSESSMENT: 1. Acute bilateral pneumonia with failure of outpatient treatment. 2. History of asthma, acute exacerbation. 3. History of gastroesophageal reflux disease. 4. Hypertension. 5. Hyperlipidemia. 6. Multiple medical issues. RECOMMENDATIONS AND DISCUSSION: I recommend to continue current medications, continue with the monitoring, symptomatic treatment. Continue with the bronchodilators. Continue steroids. Continue antibiotics. Follow the cultures. Closely follow with Pulmonary. Guarded prognosis because of multiple complex medical issues. Further recommendations to follow. MMODL / IJN: [id number] /
[2022-01-18] MEDS: MONTELUKAST 10 MG TAB PO SCH (21:22)
[2022-01-19] MEDS: methylPREDNISolone SOD SUCCI 125 MG/2 ML VIAL IV SCH ×5 (00:38→23:40)
[2022-01-19] MEDS: SODIUM CHLORIDE 0.9% 1,000 ML IV SCH ×2 (05:24→05:25)
[2022-01-19] MEDS: BUDESONIDE 0.5 MG/2 ML NEBU INHALATION SCH (07:51)
[2022-01-19] MEDS: IPRATROPIUM-ALBUTEROL 3 ML NEB INHALATION SCH ×4 (07:51→19:32)
[2022-01-19 08:49] LABS: African American GFR (CKD) 100.3 (60.0-200.0); Albumin 3.4 g/dL (3.8-4.9); Albumin/Globulin Ratio 1.89 (1.60-3.17); Anion Gap 13.9 mmol/L (10.00-18.00); BUN/Creat Ratio 23.86 Ratio (12.00-20.00); Basophils # (A) 0.06 X 10*3/uL (0.00-0.10); Basophils % (A) 0.3 %; Blood Urea Nitrogen 16.7 mg/dL (9.0-27.0); Calcium 8.7 mg/dL (8.7-10.3); Carbon Dioxide 22.1 mmol/L (20.0-27.5); Eosinophils # (A) 0 X 10*3/uL (0.04-0.35); Eosinophils % (A) 0 %; Globulin 1.8 g/dL (1.6-3.3); HCT 37.8 % (37.2-46.3); HGB 11.8 g/dL (12.0-15.0); Immature Grans, Automated 2.7 %; Lymphocytes # (A) 0.63 X 10*3/uL (0.90-5.00); Lymphocytes % (A) 3.5 %; MCHC 31.2 g/dL (32.0-37.0); MCV 89.6 fL (80.0-97.0); Mean Platelet Volume 11.5 fL (9.5-12.2); Monocytes # (A) 0.34 X 10*3/uL (0.20-1.00); Monocytes % (A) 1.9 %; NRBC Per 100 WBC 0 /100 WBCS (0.0-0.0); Neutrophils # (A) 16.32 X 10*3/uL (1.80-7.70); Neutrophils % (A) 91.6 %; Non-African American GFR(CKD) 86.6 (60.0-200.0); Platelet Count 286 X 10*3/uL (140-440); Potassium 3.3 mmol/L (3.5-5.5); RBC 4.22 X 10*6/uL (4.10-5.20); RDW 14.2 % (11.5-14.5); Total Bilirubin 0.3 mg/dL (0.30-1.20); Total Protein 5.2 g/dL (6.2-8.2); WBC 17.84 X 10*3/uL (4.50-10.00)
[2022-01-19] MEDS: HEPARIN SODIUM,PORCINE/PF 5,000 UNIT/0.5 ML SYRINGE SQ SCH ×2 (08:50→21:43)
[2022-01-19] MEDS: lisinopriL 20 MG TAB PO SCH ×2 (08:51→21:43)
[2022-01-19] MEDS: hydroCHLOROthiazide 25 MG TAB PO SCH (08:51)
[2022-01-19] MEDS: guaiFENesin 600 MG TABLET.ER PO SCH ×2 (08:51→21:43)
[2022-01-19] MEDS ORDERED: Potassium Replacement Protocol 1 EACH MISC MISCELLANE PRN ×2 (09:22→13:59)
[2022-01-19] MEDS: PROMETHAZINE 25 MG TAB PO PRN (09:38)
[2022-01-19] MEDS: AZITHROMYCIN 500 MG in SODIUM CHLORIDE 0.9% 250 ML IVPB SCH (09:42)
[2022-01-19] MEDS: METOPROLOL SUCCINATE (ER) 25 MG TAB.ER.24H PO SCH (12:02)
[2022-01-19] MEDS: amLODIPine 10 MG TAB PO SCH (12:02)
[2022-01-19] MEDS: POTASSIUM CHLORIDE 10 MEQ in WATER FOR INJECTION 1 100ML.BAG IVPB SCH ×2 (12:36→14:33)
--- NOTE | 2022-01-19 13:29 | XR ---
EXAMINATION TYPE: XR chest 2V DATE OF EXAM: 01/19/2022 COMPARISON: 01/01/2022 INDICATION: Cough TECHNIQUE: Frontal and lateral views of the chest are obtained. FINDINGS: The heart size is normal. The pulmonary vasculature is normal. Bibasilar infiltrates are present. Small bilateral pleural effusions are present. IMPRESSION: 1. Bibasilar infiltrates and small pleural effusions. Correlate for atelectasis or pneumonia
--- NOTE | 2022-01-19 13:35 | P.PN ---
Subjective Progress Note Date: 01/19/22 72-year-old female patient with mild intermittent bronchial asthma, maintained only on albuterol rescue inhaler on an as-needed basis, presented to the hospital because of persistent pneumonia, failing outpatient treatment . The patient was symptomatic approximately 4 weeks ago. She was having increased cough, congestion, some mucus production and shortness of breath. She was initially given doxycycline by the primary care and she ended up having a rash. Subsequently the antibiotics was switched to another antibiotic and the patient was given 2 rounds of steroid taper. She continued to be symptomatic and for that reason she ended up presenting to the hospital. She has not been vaccinated for COVID 19. No hemoptysis. No pleurisy. No fever. No recurrent pneumonias. She can't recall a child with episodes of pneumonia without any complications. CAT scan of the chest showed some airspace disease along bases bilaterally. Patient was hospitalized and the patient is currently on a co mbination of Rocephin and Zithromax. Her white cell count of 14.4 with a hemoglobin of 14.5. Coagulation profile is within normal. Electrodes are all within normal limits. LFTs were normal with elevated and ultrasound the gallbladder was done and showed some gallstones. No evidence of any acute cholecystitis. The patient was found to have numerous gallstones with some hepatomegaly. Biliary duct with essentially within normal limits. CAT scan of the chest showed airspace disease in lung bases bilaterally. No suspicious pulmonary masses. The patient had no other significant intra-abdominal abnormalities. Currently on a combination of Rocephin and Zithromax. 01/18/2022, the patient remains on the same treatment. The patient is on DuoNeb neb regimens [id number] and the patient is also on examination Rocephin and Zithromax. Still having coughing spells which are quite extensive. There is improvement compared to yesterday. Note that the viral screen was negative. The patient had a negative COVID 19 testing. Influenza A and B were also negative.RSV was negative. Legionella urine antigen was also negative. The pro calcitonin level was 0.26. 01/19/2022, I'm seeing the patient for a follow-up. The patient is doing well and slightly improved compared to yesterday. The chest exit findings are essentially unchanged and stable since yesterday. Meanwhile, the sputum cultures hose turner to a possible Haemophilus influenza. The patient remains on examination Rocephin and Zithromax. Cough has subsided and the patient is on a termination of DuoNeb neb regimens [id number] and IV Solu Medrol 60 mg every 6 hours. No fever. No chills. No other new complaints otherwise for now. Objective - Vital Signs Vital signs: Vital Signs Temp 98.4 F 01/19/22 08:00 Pulse 108 H 01/19/22 12:03 Resp 18 01/19/22 12:00 BP 148/72 01/19/22 12:03 Pulse Ox 95 01/19/22 08:00 FiO2 Intake & Output 01/18/22 01/19/22 01/19/22 18:59 06:59 18:59 Intake Total 1080 Balance 1080 Intake: Oral 1080 Other: Voiding Method Toilet Toilet Toilet # Voids 3 2 - Exam Calm and comfortable and the patient is currently on oxygen at 3 L, breathing is nonlabored. The patient is having frequent episodes of cough Head exam was generally normal. There was no scleral icterus or corneal arcus. Mucous membranes were moist. Neck was supple and without jugular venous distension, thyromegaly, or carotid bruits. Carotids were easily palpable bilaterally. There was no adenopathy. Lungs sounds are diminished and the patient has some limited active limited expiratory wheezes bilaterally Cardiac exam revealed the PMI to be normally situated and sized. The rhythm was regular and no extrasystoles were noted during several minutes of auscultation. The first and second heart sounds were normal and physiologic splitting of the second heart sound was noted. There were no murmurs, rubs, clicks, or gallops. Abdominal exam revealed normal bowel sounds. The abdomen was soft, non-tender, and without masses, organomegaly, or appreciable enlargement of the abdominal aorta. Examination of the extremities revealed easily palpable radial, femoral and pedal pulses. There was no cyanosis, clubbing or edema. Examination of the skin revealed no evidence of significant rashes, suspicious appearing nevi or other concerning lesions. Neurologically, the patient is awake and alert and the patient does not have any focal neurological deficit. Cranial nerves are essentially intact. - Labs CBC & Chem 7: 01/19/22 04:20 01/19/22 04:20 Labs: Abnormal Lab Results - Last 24 Hours (Table) 01/19/22 01/19/22 Range/Units 04:20 04:20 WBC 17.84 H (4.50-10.00) X 10*3/uL Hgb 11.8 L (12.0-15.0) g/dL MCHC 31.2 L (32.0-37.0) g/dL Immature Gran # 0.49 H (0.00-0.04) X 10*3/uL Neutrophils # 16.32 H (1.80-7.70) X 10*3/uL Lymphocytes # 0.63 L (0.90-5.00) X 10*3/uL Eosinophils # 0 L (0.04-0.35) X 10*3/uL Potassium 3.3 L (3.5-5.5) mmol/L BUN/Creatinine Ratio 23.86 H (12.00-20.00) Ratio Glucose 184 H (70-110) mg/dL ALT 138 H (8-44) U/L Alkaline Phosphatase 141 H (41-126) U/L Total Protein 5.2 L (6.2-8.2) g/dL Albumin 3.4 L (3.8-4.9) g/dL Microbiology - Last 24 Hours (Table) 01/17/22 15:58 Blood Culture - Preliminary Blood No Growth after 24 hours 01/17/22 16:00 Blood Culture - Preliminary Blood No Growth after 24 hours 01/16/22 19:34 Gram Stain - Final Sputum Sputum Culture - Final Haemophilus influenzae Assessment and Plan Plan: Bilateral lower lobe pneumonia, subacute, failed outpatient treatment, coming in for inpatient therapy, currently being treated on an inpatient basis with broad- spectrum antibiotics and steroids. Limited improvement since yesterday. Chest exit findings are stable, yet clinically, the patient is improving. Less short of breath and less coughing compared to yesterday. The culture was positive for Haemophilus influenza consistent with Haemophilus influenza pneumonia. Acute hypoxic respiratory failure currently on 3 L of nasal cannula, still on 3 L of oxygen by nasal cannula with a pulse ox of 97% Shortness of breath secondary to above Hypertension Mild intermittent bronchial asthma possibly with some exacerbation secondary to above Hyperlipidemia Impaired hearing History of GI bleed related to duodenitis and gastritis and the patient is also known to have hiatal hernia Plan Check pro calcitonin level, level is at 0.26 Continue Rocephin and Zithromax Repeat chest x-ray was noted from today Check a Legionella urine antigenit was negative Check COVID 19 by PCR The rest of the viral screen was also negative Continue same antibiotic coverage and the steroids and promethazine Reevaluate in a.m.
[2022-01-19] MEDS ORDERED: Magnesium Replacement Protocol 1 EACH MISC MISCELLANE PRN (13:59)
[2022-01-19] MEDS: POTASSIUM CHLORIDE ER 20 MEQ TAB.ER PO SCH (15:04)
[2022-01-19] MEDS ORDERED: METOPROLOL TARTRATE 50 MG TAB PO STA (18:48)
--- NOTE | 2022-01-19 19:14 | PN ---
PROGRESS NOTE DATE OF SERVICE: 01/19/2022 71-year-old woman who was admitted with bilateral pneumonia and asthma exacerbation is being closely monitored. No chest pain. No palpitations. No fever. Most recent chest x-ray which was done today and reviewed personally by me showed still bibasilar infiltrates and some small pleural effusion also. PHYSICAL EXAMINATION: Pulse is 78. Blood pressure 120/47, respiration 18; pulse ox is 94 percent on 3 L. HEENT: Conjunctivae normal. Neck: No JVD. Cardiovascular: S1, S2 muffled. Respirations: Breath sounds diminished at the bases. A few scattered rhonchi in the bases. Abdomen: Soft. Nervous system: No focal deficits. LAB: WBC 17.8. Other labs are noted. ASSESSMENT: 1. Acute bilateral pneumonia with failure of outpatient treatment. 2. History of asthma, acute exacerbation. 3. Gastroesophageal reflux disease. 4. Hypertension. 5. Hyperlipidemia. 6. Multiple medical issues. DISCUSSION AND RECOMMENDATIONS: Continue current medications, management, symptomatic treatment, antibiotics, bronchodilators, steroids. Replace potassium. See orders for details. Further recommendations to follow. MMODL / IJN: [id number] /
[2022-01-19] MEDS: BUDESONIDE 1 MG/2 ML NEBU INHALATION SCH (20:30)
[2022-01-19] MEDS ORDERED: DILTIAZEM 125 MG in SODIUM CHLORIDE 0.9% 100 ML IV SCH (21:15)
[2022-01-19] MEDS: METOPROLOL TARTRATE 50 MG TAB PO SCH (21:43)
[2022-01-19] MEDS: MONTELUKAST 10 MG TAB PO SCH (21:43)
[2022-01-20] MEDS: methylPREDNISolone SOD SUCCI 125 MG/2 ML VIAL IV SCH ×4 (06:14→23:45)
[2022-01-20] MEDS: IPRATROPIUM-ALBUTEROL 3 ML NEB INHALATION SCH ×4 (08:29→19:31)
[2022-01-20] MEDS: BUDESONIDE 1 MG/2 ML NEBU INHALATION SCH ×2 (08:29→19:32)
--- NOTE | 2022-01-20 09:11 | P.PN ---
Subjective Progress Note Date: 01/20/22 72-year-old female patient with mild intermittent bronchial asthma, maintained only on albuterol rescue inhaler on an as-needed basis, presented to the hospital because of persistent pneumonia, failing outpatient treatment . The patient was symptomatic approximately 4 weeks ago. She was having increased cough, congestion, some mucus production and shortness of breath. She was initially given doxycycline by the primary care and she ended up having a rash. Subsequently the antibiotics was switched to another antibiotic and the patient was given 2 rounds of steroid taper. She continued to be symptomatic and for that reason she ended up presenting to the hospital. She has not been vaccinated for COVID 19. No hemoptysis. No pleurisy. No fever. No recurrent pneumonias. She can't recall a child with episodes of pneumonia without any complications. CAT scan of the chest showed some airspace disease along bases bilaterally. Patient was hospitalized and the patient is currently on a co mbination of Rocephin and Zithromax. Her white cell count of 14.4 with a hemoglobin of 14.5. Coagulation profile is within normal. Electrodes are all within normal limits. LFTs were normal with elevated and ultrasound the gallbladder was done and showed some gallstones. No evidence of any acute cholecystitis. The patient was found to have numerous gallstones with some hepatomegaly. Biliary duct with essentially within normal limits. CAT scan of the chest showed airspace disease in lung bases bilaterally. No suspicious pulmonary masses. The patient had no other significant intra-abdominal abnormalities. Currently on a combination of Rocephin and Zithromax. 01/18/2022, the patient remains on the same treatment. The patient is on DuoNeb neb regimens [id number] and the patient is also on examination Rocephin and Zithromax. Still having coughing spells which are quite extensive. There is improvement compared to yesterday. Note that the viral screen was negative. The patient had a negative COVID 19 testing. Influenza A and B were also negative.RSV was negative. Legionella urine antigen was also negative. The pro calcitonin level was 0.26. 01/19/2022, I'm seeing the patient for a follow-up. The patient is doing well and slightly improved compared to yesterday. The chest exit findings are essentially unchanged and stable since yesterday. Meanwhile, the sputum cultures return agent to a possible Haemophilus influenza. The patient remains on examination Rocephin and Zithromax. Cough has subsided and the patient is on a termination of DuoNeb neb regimens [id number] and IV Solu Medrol 60 mg every 6 hours. No fever. No chills. No other new complaints otherwise for now. 01/20 2022, the patient is slightly improving. As mentioned earlier, the patient is documented to have Haemophilus influenza pneumonia and the patient had a follow-up chest x-ray that showed a residual infiltration in the lung bases although stable. Clinically she is improving. Her cough is subsiding. She is on bronchodilators patient on a combination of Rocephin and Zithromax and she is also on IV Solu-Medrol. She has developed some mild oropharyngeal thrush. She is also having IV fluids with normal saline at the rate of 75 mL an hour. Objective - Vital Signs Vital signs: Vital Signs Temp 97.9 F 01/19/22 21:30 Pulse 68 01/20/22 08:40 Resp 18 01/20/22 04:00 BP 124/68 01/20/22 04:00 Pulse Ox 92 L 01/20/22 08:29 FiO2 Intake & Output 01/19/22 01/20/22 01/20/22 18:59 06:59 18:59 Intake Total 1080 504.167 Balance 1080 504.167 Intake: Intake, IV Titration 19.167 Amount Diltiazem 125 mg In 19.167 Sodium Chloride 0.9% 100 ml @ 10 MG/HR 10 mls/hr IV .[id number] [facility] Rx#: [id number] Oral 1080 485 Other: Voiding Method Toilet Toilet # Voids 3 2 - Exam Calm and comfortable and the patient is currently on oxygen at 3 L, breathing is nonlabored. The patient is having frequent episodes of cough Head exam was generally normal. There was no scleral icterus or corneal arcus. Mucous membranes were moist. Neck was supple and without jugular venous distension, thyromegaly, or carotid bruits. Carotids were easily palpable bilaterally. There was no adenopathy. Lungs sounds are diminished and the patient has some limited active limited expiratory wheezes bilaterally Cardiac exam revealed the PMI to be normally situated and sized. The rhythm was regular and no extrasystoles were noted during several minutes of auscultation. The first and second heart sounds were normal and physiologic splitting of the second heart sound was noted. There were no murmurs, rubs, clicks, or gallops. Abdominal exam revealed normal bowel sounds. The abdomen was soft, non-tender, and without masses, organomegaly, or appreciable enlargement of the abdominal aorta. Examination of the extremities revealed easily palpable radial, femoral and pedal pulses. There was no cyanosis, clubbing or edema. Examination of the skin revealed no evidence of significant rashes, suspicious appearing nevi or other concerning lesions. Neurologically, the patient is awake and alert and the patient does not have any focal neurological deficit. Cranial nerves are essentially intact. - Labs CBC & Chem 7: 01/19/22 04:20 01/19/22 04:20 Labs: Microbiology - Last 24 Hours (Table) 01/17/22 15:58 Blood Culture - Preliminary Blood No Growth after 48 hours 01/17/22 16:00 Blood Culture - Preliminary Blood No Growth after 48 hours Assessment and Plan Plan: Bilateral lower lobe pneumonia, subacute, failed outpatient treatment, coming in for inpatient therapy, currently being treated on an inpatient basis with broad- spectrum antibiotics and steroids. Limited improvement since yesterday. Chest exit findings are stable, yet clinically, the patient is improving. Less short of breath and less coughing compared to yesterday. The culture was positive for Haemophilus influenza consistent with Haemophilus influenza pneumonia. Acute hypoxic respiratory failure improved and the patient is currently on room air Shortness of breath secondary to above, improving and the cough is also subsiding Hypertension Mild intermittent bronchial asthma possibly with some exacerbation secondary to above Hyperlipidemia Impaired hearing History of GI bleed related to duodenitis and gastritis and the patient is also known to have hiatal hernia Oropharyngeal candidiasis Plan Chest x-ray findings are stable Continue Rocephin and Zithromax Continued IV Solu-Medrol Give nystatin swish and swallow Check a Legionella urine antigenit was negative Check COVID 19 by PCR was negative The rest of the viral screen was also negative Continue same antibiotic coverage and the steroids and promethazine Reevaluate in a.m.
--- NOTE | 2022-01-20 09:17 | P.CRDCN ---
History of Present Illness Consult date: 01/20/22 History of present illness: History of Present Illness: The patient is a 71-year-old female with a history of hypertension, history of aortic valve disease with aortic regurgitation who presented with progressive cough and fatigue for 2 weeks, was treated as an outpatient for pneumonia but because of the persistent symptoms was admitted. Last night she had an episode of atrial fibrillation, asymptomatic. She converted spontaneously to sinus mechanism. She denies any prior documented atrial fibrillation. Her activity is limited because of her hip discomfort. She has no history of myocardial infarction or CHF. She has been followed by Dr. Berg in regard to her aortic valve disease. She has a normal systolic function prior testing. She has no PND or orthopnea, she has mild occasional peripheral edema. She has rare palpitations but not documented his atrial fibrillation. She is feeling better since her admission. She continues to have a cough but no fever. Her coronary risk factors are positive for hypertension, she is a nondiabetic nonsmoker. Medications: Zestril 20 mg twice a day, metoprolol succinate 25 mg daily, Norvasc 10 mg daily, hydrochlorothiazide 25 mg daily Review of Systems: Respiratory: She has a history of asthma with recent worsening cough GI: She has a remote history of GI bleeding over 4 years ago with no recurrence : No hematuria or dysuria. Nervous System: No stroke or seizure. Physical Examination: 71-year-old female, alert and oriented with persistent cough,Blood pressure 124/60, Heart rate 60 Head: Normocephalic. Eyes: Sclerae nonicteric. Neck: Good carotid upstroke, no bruit, no jugular venous distention. Lungs: Bilateral rhonchi with no wheezes Heart: Regular rate and rhythm, S1-S2, no S3, no rub. Systolic ejection murmur with a diastolic murmur at the base murmur. Abdomen: Soft nontender, positive bowel sounds no organomegaly. Extremities: No edema, intact distal pulses. Labs: AST 176, ALT 202, pro-calcitonin 0.26, white blood cell 17.8, hemoglobin 11.8, BUN 16, creatinine 0.7. Potassium 3.3. Chest x-ray with bibasilar infiltrate and small pleural effusion sinus EKG: Sinus mechanism with occasional PACs on admission yesterday she went in atrial fibrillation with rapid ventricular response and nonspecific ST-T wave changes. She is back in sinus mechanism at this time. Impression: 1. Pneumonia with Haemophilus influenza 2. Paroxysmal atrial fibrillation, her CHADS2-VASC2 score is 3 3. History of aortic valve regurgitation 4. Hypertension Plan: 1. Initiate anticoagulation 2. Obtain an echocardiogram with Doppler 3. Check TSH and electrolytes 4. Depending on her progress further recommendations will be made 5. Thank you for this consult we will follow with you. Past Medical History Past Medical History: Asthma, GERD/Reflux, GI Bleed, Hearing Disorder / Deafness, Hyperlipidemia, Hypertension, Osteoarthritis (OA), Pneumonia Additional Past Medical History / Comment(s): neumonia as a child, lower GI bleed twice, gastritis, duodenitis, hiatal hernia, colitis, constipation, UTIs, tinnitis L ear. History of Any Multi-Drug Resistant Organisms: None Reported Past Surgical History: Hysterectomy, Orthopedic Surgery Additional Past Surgical History / Comment(s): R hip partial replacement, EGD, colonoscopies Past Anesthesia/Blood Transfusion Reactions: No Reported Reaction Past Psychological History: No Psychological Hx Reported Additional Psychological History / Comment(s): Pt resides with her spouse. She is independent. Smoking Status: Never smoker Past Alcohol Use History: Occasional Past Drug Use History: None Reported - Past Family History Father Family Medical History: Myocardial Infarction (SD) Additional Family Medical History / Comment(s): Father had 3 MIs. First SD while in his 40s and his last SD at the age of 61 from which he . Mother Family Medical History: Cancer Additional Family Medical History / Comment(s): Mother of liver cancer at the age of 51yrs. Medications and Allergies Home Medications Medication Instructions Recorded Confirmed Type Albuterol Sulfate [Proair Hfa] 1 puff INHALATION RT-Q4H PRN 06/28/17 01/17/22 History Albuterol Nebulized [Ventolin 2.5 mg INHALATION RT-QID 01/17/22 01/17/22 History Nebulized] Fluticasone Furoate [Arnuity 1 puff INHALATION RT-DAILY 01/17/22 01/17/22 History Ellipta] Metoprolol Succinate [Metoprolol 25 mg PO DAILY@119901/17/22 01/17/22 History Succinate ER] amLODIPine [Norvasc] 10 mg PO DAILY@119901/17/22 01/17/22 History hydroCHLOROthiazide 25 mg PO DAILY 01/17/22 01/17/22 History lisinopriL [Zestril] 20 mg PO BID 01/17/22 01/17/22 History Allergies Allergy/AdvReac Type Severity Reaction Status Date / Time doxycycline Allergy Rash/Hives Verified 01/17/22 08:28 levofloxacin [From Levaquin] Allergy Wheezing Verified 01/17/22 08:28 Penicillins Allergy Wheezing Verified 01/17/22 08:28 Physical Exam Vitals: Vital Signs Temp Pulse Pulse Resp BP Pulse Ox 01/20/22 08:40 68 01/20/22 08:29 66 92 L 01/20/22 04:00 71 18 124/68 92 L 01/20/22 00:00 75 18 114/61 96 01/19/22 21:30 97.9 F 139 H 18 121/90 93 L 01/19/22 21:00 95 01/19/22 20:00 98.4 F 130 H 20 123/76 94 L 01/19/22 16:12 78 18 01/19/22 16:00 80 18 01/19/22 14:00 97.7 F 84 16 149/62 95 01/19/22 12:03 108 H 148/72 01/19/22 12:00 78 18 01/19/22 11:49 77 18 Intake and Output 01/19/22 01/20/22 01/20/22 22:59 06:59 14:59 Intake Total 1080 504.167 Balance 1080 504.167 Intake: Intake, IV Titration 19.167 Amount Diltiazem 125 mg In 19.167 Sodium Chloride 0.9% 100 ml @ 10 MG/HR 10 mls/hr IV .[id number] [facility] Rx#: [id number] Oral 1080 485 Other: Voiding Method Toilet Toilet # Voids 3 2 Results 01/19/22 04:20 01/19/22 04:20 Current Medications Generic Name Dose Route Start Last Admin Trade Name Freq PRN Reason Stop Dose Admin Acetaminophen 650 mg 01/16/22 21:14 Acetaminophen Tab 325 Mg Tab PO Q6HR PRN Mild Pain or Fever > 100.5 Hydrocodone Bitart/Acetaminophen 1 each 01/16/22 21:14 Hydrocodone/Apap 5-325mg 1 Each Tab PO Q4HR PRN Moderate Pain Albuterol/Ipratropium 3 ml 01/17/22 08:00 01/20/22 08:29 Ipratropium-Albuterol 3 Ml Neb INHALATION 3 ml RT-QID ELISHA Administration Albuterol/Ipratropium 3 ml 01/17/22 13:47 Ipratropium-Albuterol 3 Ml Neb INHALATION RT-QID PRN Shortness Of Breath Or Wheezing Amlodipine Besylate 10 mg 01/18/22 12:00 01/19/22 12:02 Amlodipine 10 Mg Tab PO 10 mg DAILY@1200 ELISHA Administration Budesonide 1 mg 01/19/22 20:00 01/20/22 08:29 Budesonide 1 Mg/2 Ml Nebu INHALATION 1 mg RT-BID ELISHA Administration Guaifenesin 1,200 mg 01/16/22 21:45 01/19/22 21:43 Guaifenesin 600 Mg Tablet.Er PO 1,200 mg Q12HR ELISHA Administration Heparin Sodium (Porcine) 5,000 unit 01/17/22 21:00 01/19/22 21:43 Heparin Sodium,Porcine/Pf 5,000 Unit/0.5 Ml Syringe SQ 5,000 unit Q12HR ELISHA Administration Hydrochlorothiazide 25 mg 01/18/22 09:00 01/19/22 08:51 Hydrochlorothiazide 25 Mg Tab PO 25 mg DAILY ELISHA Administration Azithromycin 500 mg/ Sodium 250 mls @ 250 mls/hr 01/17/22 14:00 01/19/22 09:42 Chloride IVPB 01/20/22 14:01 250 mls/hr DAILY ELISHA Administration Protocol Ceftriaxone Sodium 1 gm/ 50 mls @ 100 mls/hr 01/17/22 14:00 01/19/22 08:50 Sodium Chloride IVPB 100 mls/hr Q24HR ELISHA Administration Protocol Diltiazem HCl 125 mg/ Sodium 125 mls @ 10 mls/hr 01/19/22 21:15 01/19/22 23:38 Chloride IV 0 mg/hr .[id number] ELISHA 0 mls/hr Infusion 10 MG/HR Lisinopril 20 mg 01/17/22 21:00 01/19/22 21:43 Lisinopril 20 Mg Tab PO 20 mg BID ELISHA Administration Methylprednisolone Sodium Succinate 60 mg 01/17/22 14:00 01/20/22 06:14 Methylprednisolone Sod Succi 125 Mg/2 Ml Vial IV 60 mg Q6HR ELISHA Administration Metoprolol Tartrate 50 mg 01/19/22 22:00 01/19/22 21:43 Metoprolol Tartrate 50 Mg Tab PO 50 mg TID ELISHA Administration Miscellaneous Information 1 each 01/16/22 21:16 Pneumonia Protocol Utilized 1 Each Misc PO ONCE PRN Per Protocol Miscellaneous Information 1 each 01/19/22 13:59 Magnesium Replacement Protocol 1 Each Misc MISCELLANE DAILY PRN Per Protocol Protocol Montelukast Sodium 10 mg 01/17/22 21:00 01/19/22 21:43 Montelukast 10 Mg Tab PO 10 mg HS ELISHA Administration Naloxone HCl 0.2 mg 01/16/22 21:14 Naloxone 0.4 Mg/Ml 1 Ml Vial IV Q2M PRN Opioid Reversal Nystatin 500,000 unit 01/20/22 10:00 Nystatin 100,000 Unit/Ml Susp 500,000 Unit/5 Ml Cup PO QID [facility] Protocol Oxycodone/Acetaminophen 1 each 01/16/22 21:14 Oxycodone-Apap 5-325mg 1 Each Tab PO Q4HR PRN Severe Pain Potassium Chloride 20 meq 01/19/22 14:00 01/19/22 15:04 Potassium Chloride Er 20 Meq Tab.Er PO 20 meq DAILY ELISHA Administration Promethazine HCl 12.5 mg 01/18/22 10:34 01/19/22 09:38 Promethazine 25 Mg Tab PO 12.5 mg Q6HR PRN Administration Cough Intake and Output 01/19/22 01/20/22 01/20/22 22:59 06:59 14:59 Intake Total 1080 504.167 Balance 1080 504.167 Intake: Intake, IV Titration 19.167 Amount Diltiazem 125 mg In 19.167 Sodium Chloride 0.9% 100 ml @ 10 MG/HR 10 mls/hr IV .[id number] [facility] Rx#: [id number] Oral 1080 485 Other: Voiding Method Toilet Toilet # Voids 3 2 01/19/22 04:20 01/19/22 04:20
[2022-01-20] MEDS: POTASSIUM CHLORIDE ER 20 MEQ TAB.ER PO SCH (09:24)
[2022-01-20] MEDS: lisinopriL 20 MG TAB PO SCH ×2 (09:24→20:53)
[2022-01-20] MEDS: guaiFENesin 600 MG TABLET.ER PO SCH ×2 (09:24→20:53)
[2022-01-20] MEDS: hydroCHLOROthiazide 25 MG TAB PO SCH (09:26)
[2022-01-20] MEDS: AZITHROMYCIN 500 MG in SODIUM CHLORIDE 0.9% 250 ML IVPB SCH (10:43)
[2022-01-20] MEDS: NYSTATIN 100,000 UNIT/ML SUSP 500,000 UNIT/5 ML CUP PO SCH ×4 (10:44→20:53)
[2022-01-20 11:32] LABS: Basophils # (A) 0.11 X 10*3/uL (0.00-0.10); Basophils % (A) 0.6 %; Eosinophils # (A) 0 X 10*3/uL (0.04-0.35); Eosinophils % (A) 0 %; HCT 39.9 % (37.2-46.3); HGB 12.5 g/dL (12.0-15.0); Lymphocytes # (A) 0.97 X 10*3/uL (0.90-5.00); Lymphocytes % (A) 5.7 %; MCH 28.2 pg (27.0-32.0); MCHC 31.3 g/dL (32.0-37.0); MCV 89.9 fL (80.0-97.0); Mean Platelet Volume 11.7 fL (9.5-12.2); Monocytes # (A) 0.38 X 10*3/uL (0.20-1.00); Monocytes % (A) 2.2 %; NRBC Per 100 WBC 0.2 /100 WBCS (0.0-0.0); Neutrophils # (A) 14.74 X 10*3/uL (1.80-7.70); Neutrophils % (A) 86.5 %; Platelet Count 364 X 10*3/uL (140-440); RBC 4.44 X 10*6/uL (4.10-5.20); RDW 13.9 % (11.5-14.5); WBC 17.05 X 10*3/uL (4.50-10.00)
[2022-01-20 11:46] LABS: African American GFR (CKD) 95.5 (60.0-200.0); Anion Gap 13.5 mmol/L (10.00-18.00); BUN/Creat Ratio 25.38 Ratio (12.00-20.00); Blood Urea Nitrogen 18.5 mg/dL (9.0-27.0); Carbon Dioxide 26.1 mmol/L (20.0-27.5); Magnesium 2.3 mg/dL (1.5-2.4); Non-African American GFR(CKD) 82.4 (60.0-200.0); Potassium 3.6 mmol/L (3.5-5.5)
[2022-01-20] MEDS: amLODIPine 10 MG TAB PO SCH (11:56)
[2022-01-20] MEDS: METOPROLOL TARTRATE 50 MG TAB PO SCH ×2 (13:07→20:53)
[2022-01-20] MEDS: HEPARIN SODIUM,PORCINE/PF 5,000 UNIT/0.5 ML SYRINGE SQ SCH (13:07)
--- NOTE | 2022-01-20 13:45 | CA ---
Transthoracic Echo Report Name: Ruthy Carlton Age: 71 Gender: F : 1950 Exam Date: 01/20/2022 10:40 Exam Location: [place] [facility] Ht (in): 68 Wt (lb): 169 Ordering Physician: Vania Middleton MD ([id number]) Attending/Referring Phys: Print Production Manager Lottie Krause RDCS Procedure CPT: Indications: AI Cardiac Hx: Technical Quality: Fair Contrast 1: Total Dose (mL): Contrast 2: Total Dose (mL): MEASUREMENTS (Male / Female) Normal Values 2D ECHO LV Diastolic Diameter PLAX 4.4 cm 4.2 - 5.9 / 3.9 - 5.3 cm LV Systolic Diameter PLAX 2.4 cm IVS Diastolic Thickness 1.4 cm 0.6 - 1.0 / 0.6 - 0.9 cm LVPW Diastolic Thickness 1.2 cm 0.6 - 1.0 / 0.6 - 0.9 cm LV Relative Wall Thickness 0.6 RV Internal Dim ED PLAX 3.6 cm LA Volume 52.1 cm??? 18 - 58 / 22 - 52 cm??? M-MODE Aortic Root Diameter MM 3.3 cm LA Systolic Diameter MM 4.2 cm LA Ao Ratio MM 1.3 AV Cusp Separation MM 2.1 cm DOPPLER AV Peak Velocity 169.2 cm/s AV Peak Gradient 11.4 mmHg AI Peak Velocity 446.5 cm/s AI Peak Gradient 79.8 mmHg AI Pressure Half Time 574.1 ms MV Area PHT 4.1 cm??? Mitral E Point Velocity 100.3 cm/s Mitral A Point Velocity 101.2 cm/s Mitral E to A Ratio 1.0 MV Deceleration Time 184.9 ms MV E' Velocity 7.4 cm/s Mitral E to MV E' Ratio 13.6 TR Peak Velocity 273.4 cm/s TR Peak Gradient 29.9 mmHg Right Ventricular Systolic Press 34.9 mmHg FINDINGS Left Ventricle Mildly increased left ventricular wall thickness. Normal left ventricular systolic function with no obvious regional wall motion abnormalities. Left ventricular ejection fraction is estimated at 55-60 %. Right Ventricle Right ventricle at upper limits of normal. Mild pulmonary hypertension. Right Atrium Normal right atrial size. Left Atrium Normal left atrial size. No evidence for an atrial septal defect. Mitral Valve Mild mitral annular calcification. Mild mitral regurgitation. Aortic Valve Aortic valve sclerosis. Moderate aortic regurgitation. Tricuspid Valve Structurally normal tricuspid valve. Mild tricuspid regurgitation. Pulmonic Valve Trace pulmonic regurgitation. Pericardium No pericardial effusion. Aorta Normal size aortic root and proximal ascending aorta. CONCLUSIONS 1. normal left ventricular size and systolic function 2. Aortic sclerosis with moderate aortic regurgitation 3. Mild mitral and tricuspid regurgitation. 4. No pericardial effusion. Previewed by: Dr. Vania Middleton MD (Electronically Signed) Final Date: 20 January 2022 13:43
[2022-01-20] MEDS: RIVAROXABAN 20 MG TAB PO SCH (16:56)
[2022-01-20 19:23] LABS: Glucose,Whole Blood 264 mg/dL (70-110)
[2022-01-20] MEDS: INSULIN ASPART (NovoLOG) 100 UNIT/ML VIAL SQ SCH (20:53)
[2022-01-20] MEDS: MONTELUKAST 10 MG TAB PO SCH (20:53)
[2022-01-20 23:03] LABS: Glucose,Whole Blood 267 mg/dL (70-110)
--- NOTE | 2022-01-21 03:21 | P.PN ---
Subjective Progress Note Date: 01/20/22 This is a 71 year old female who was recently admitted with extensive bilateral pneumonia with asthma exacerbation and is being closely monitored. Patient had increasing heart rate with afib rvr and placed on IV cardizem and anticoagulation with cardiology consulted. Patient currently on IV steroids, IV abx, and breathing inhalational treatments. Recommend continued telemetry and cardiology working on medication adjustments. Patient is afebrile and denies worsening shortness of breath and currently on room air. Patient continues with extreme cough and having some lower right quadrant pain possible a muscle strain as her cough is frequent and intense. Patient guarding site with cough. Review of systems: Constitutional: No reports of fatigue, fever, or chills Cardiovascular: No reports of chest pain or palpitations Respiratory: No reports of shortness of breath or cough GI: reports of nausea, no reports of of vomiting, reports lower right abdominal pain with cough : No reports of dysuria or retention Neurovascular: no reports of generalized weakness All medications have been reviewed Active Medications Acetaminophen (Acetaminophen Tab 325 Mg Tab) 650 mg PO Q6HR PRN PRN Reason: Mild Pain or Fever > 100.5 Hydrocodone Bitart/Acetaminophen (Hydrocodone/Apap 5-325mg 1 Each Tab) 1 each PO Q4HR PRN PRN Reason: Moderate Pain Albuterol/Ipratropium (Ipratropium-Albuterol 3 Ml Neb) 3 ml INHALATION RT-QID [facility] Last Admin: 01/20/22 19:31 Dose: 3 ml Albuterol/Ipratropium (Ipratropium-Albuterol 3 Ml Neb) 3 ml INHALATION RT-QID PRN PRN Reason: Shortness Of Breath Or Wheezing Amlodipine Besylate (Amlodipine 10 Mg Tab) 10 mg PO DAILY@1200 [facility] Last Admin: 01/20/22 11:56 Dose: 10 mg Budesonide (Budesonide 1 Mg/2 Ml Nebu) 1 mg INHALATION RT-BID [facility] Last Admin: 01/20/22 19:32 Dose: Not Given Guaifenesin (Guaifenesin 600 Mg Tablet.Er) 1,200 mg PO Q12HR [facility] Last Admin: 01/20/22 20:53 Dose: 1,200 mg Hydrochlorothiazide (Hydrochlorothiazide 25 Mg Tab) 25 mg PO DAILY [facility] Last Admin: 01/20/22 09:26 Dose: 25 mg Ceftriaxone Sodium 1 gm/ (Sodium Chloride) 50 mls @ 100 mls/hr IVPB Q24HR [facility]; Protocol Last Admin: 01/20/22 09:24 Dose: 100 mls/hr Insulin Aspart (Insulin Aspart (Novolog) 100 Unit/Ml Vial) 0 unit SQ ACHS [facility]; Protocol Last Admin: 01/20/22 20:53 Dose: 8 unit Lisinopril (Lisinopril 20 Mg Tab) 20 mg PO BID [facility] Last Admin: 01/20/22 20:53 Dose: 20 mg Methylprednisolone Sodium Succinate (Methylprednisolone Sod Succi 125 Mg/2 Ml Vial) 60 mg IV Q6HR [facility] Last Admin: 01/20/22 23:45 Dose: 60 mg Metoprolol Tartrate (Metoprolol Tartrate 50 Mg Tab) 50 mg PO BID [facility] Last Admin: 01/20/22 20:53 Dose: 50 mg Miscellaneous Information (Pneumonia Protocol Utilized 1 Each Misc) 1 each PO ONCE PRN PRN Reason: Per Protocol Miscellaneous Information (Magnesium Replacement Protocol 1 Each Mis) 1 each MISCELLANE DAILY PRN; Protocol PRN Reason: Per Protocol Montelukast Sodium (Montelukast 10 Mg Tab) 10 mg PO HS [facility] Last Admin: 01/20/22 20:53 Dose: 10 mg Naloxone HCl (Naloxone 0.4 Mg/Ml 1 Ml Vial) 0.2 mg IV Q2M PRN PRN Reason: Opioid Reversal Nystatin (Nystatin 100,000 Unit/Ml Susp 500,000 Unit/5 Ml Cup) 500,000 unit PO QID [facility]; Protocol Last Admin: 01/20/22 20:53 Dose: 500,000 unit Oxycodone/Acetaminophen (Oxycodone-Apap 5-325mg 1 Each Tab) 1 each PO Q4HR PRN PRN Reason: Severe Pain Potassium Chloride (Potassium Chloride Er 20 Meq Tab.Er) 20 meq PO DAILY [facility] Last Admin: 01/20/22 09:24 Dose: 20 meq Promethazine HCl (Promethazine 25 Mg Tab) 12.5 mg PO Q6HR PRN PRN Reason: Cough Last Admin: 01/19/22 09:38 Dose: 12.5 mg Rivaroxaban (Rivaroxaban 20 Mg Tab) 20 mg PO W/SUPPER [facility]; Protocol Last Admin: 01/20/22 16:56 Dose: 20 mg PHYSICAL EXAMINATION: GENERAL: The patient is alert and oriented x4, Well developed, well nourished. HEENT: PERRLA. EOMI. no scleral icterus. No conjunctival pallor. Normocephalic, atraumatic. No pharyngeal erythema. No thyromegaly. CARDIOVASCULAR: S1 and S2 muffled PULMONARY: diminished breath sounds bilaterally with course rhonchi and some wheezing noted. Bronchospastic on exam ABDOMEN: soft. tender on exam of the right lower quadrant. non-distended, normoactive bowel sounds. No palpable organomegaly. MUSCULOSKELETAL: No joint swelling or deformity. EXTREMITIES: No cyanosis, clubbing, or pedal edema. NEUROLOGICAL: Gross neurological examination did not reveal any focal deficits. SKIN: No rashes. Assessment: Acute bilateral pneumonia with failure of outpatient treatment hemophillus influenza on sputum culture Asthma, acute exacerbation paroxysmal atrial fibrillation, new onset GERD Hypertension Hyperlipidemia Multiple medical issues GI prophylaxis DVT prophylaxis Full code Plan: Recommend to continue with current medications and management with pulmonary and cardiology services. Patient was transferred to selective unit for afib RVR and started on IV cardizem and anticoagulation. Medications being adjusted and rate controlled at this time. Patient is continued on breathing treatments, IV abx, and IV steroids and will continued. Patient now on room air and maintaining oxygen above 90%. Patient with continued bronchospasms and having continued coarse cough with some lower right quadrant pain and will monitor closely and encouraged pillow use with coughing and if worsening will order ct abdomen. Will follow up in am. Encouraged increase activity as tolerated. Recommend continue with incentive spirometer use at least 10 times every hour while awake and also patient will also recommend accuchecks achs and sliding scale for elevated blood sugars likely steroid effect. Due to multiple medical issues, prognosis is guarded. AM labs ordered. The impression and plan of care has been dictated by Gale Zamora, nurse practitioner as directed. MD Guille I have performed a history and examination and MDM of this patient, discussed the same with the dictator, and agree with the dictator's assessment and plan as written ,documented as a scribe. Based on total visit time, I have performed more than 50% of the visit. Any additional findings or plans will be noted. Objective - Vital Signs Vital signs: Vital Signs Temp 97.9 F 01/19/22 21:30 Pulse 68 01/20/22 08:40 Resp 18 01/20/22 04:00 BP 124/68 01/20/22 04:00 Pulse Ox 92 L 01/20/22 08:29 FiO2 Intake & Output 01/19/22 01/20/22 01/20/22 18:59 06:59 18:59 Intake Total 1080 504.167 Balance 1080 504.167 Intake: Intake, IV Titration 19.167 Amount Diltiazem 125 mg In 19.167 Sodium Chloride 0.9% 100 ml @ 10 MG/HR 10 mls/hr IV .[id number] [facility] Rx#: [id number] Oral 1080 485 Other: Voiding Method Toilet Toilet # Voids 3 2 - Labs CBC & Chem 7: 01/20/22 07:43 01/20/22 07:43 Labs: Microbiology - Last 24 Hours (Table) 01/17/22 15:58 Blood Culture - Preliminary Blood No Growth after 48 hours 01/17/22 16:00 Blood Culture - Preliminary Blood No Growth after 48 hours
[2022-01-21 05:57] LABS: Glucose,Whole Blood 200 mg/dL (70-110)
[2022-01-21] MEDS: methylPREDNISolone SOD SUCCI 125 MG/2 ML VIAL IV SCH ×3 (06:35→16:56)
[2022-01-21] MEDS: INSULIN ASPART (NovoLOG) 100 UNIT/ML VIAL SQ SCH ×4 (06:36→21:00)
[2022-01-21] MEDS: IPRATROPIUM-ALBUTEROL 3 ML NEB INHALATION SCH ×4 (08:05→19:40)
[2022-01-21] MEDS: BUDESONIDE 1 MG/2 ML NEBU INHALATION SCH ×2 (08:05→19:40)
[2022-01-21] MEDS: guaiFENesin 600 MG TABLET.ER PO SCH ×2 (08:39→20:59)
[2022-01-21] MEDS: POTASSIUM CHLORIDE ER 20 MEQ TAB.ER PO SCH ×3 (08:39→15:27)
[2022-01-21] MEDS: lisinopriL 20 MG TAB PO SCH ×2 (08:39→20:59)
[2022-01-21] MEDS: METOPROLOL TARTRATE 50 MG TAB PO SCH ×2 (08:39→20:59)
[2022-01-21] MEDS: hydroCHLOROthiazide 25 MG TAB PO SCH (08:39)
[2022-01-21] MEDS: NYSTATIN 100,000 UNIT/ML SUSP 500,000 UNIT/5 ML CUP PO SCH ×4 (08:40→21:01)
[2022-01-21 08:57] LABS: Calcium 8.5 mg/dL (8.4-10.2); Potassium 3.1 mmol/L (3.5-5.1)
--- NOTE | 2022-01-21 11:13 | P.PN ---
Subjective Progress Note Date: 01/21/22 72-year-old female patient with mild intermittent bronchial asthma, maintained only on albuterol rescue inhaler on an as-needed basis, presented to the hospital because of persistent pneumonia, failing outpatient treatment . The patient was symptomatic approximately 4 weeks ago. She was having increased cough, congestion, some mucus production and shortness of breath. She was initially given doxycycline by the primary care and she ended up having a rash. Subsequently the antibiotics was switched to another antibiotic and the patient was given 2 rounds of steroid taper. She continued to be symptomatic and for that reason she ended up presenting to the hospital. She has not been vaccinated for COVID 19. No hemoptysis. No pleurisy. No fever. No recurrent pneumonias. She can't recall a child with episodes of pneumonia without any complications. CAT scan of the chest showed some airspace disease along bases bilaterally. Patient was hospitalized and the patient is currently on a co mbination of Rocephin and Zithromax. Her white cell count of 14.4 with a hemoglobin of 14.5. Coagulation profile is within normal. Electrodes are all within normal limits. LFTs were normal with elevated and ultrasound the gallbladder was done and showed some gallstones. No evidence of any acute cholecystitis. The patient was found to have numerous gallstones with some hepatomegaly. Biliary duct with essentially within normal limits. CAT scan of the chest showed airspace disease in lung bases bilaterally. No suspicious pulmonary masses. The patient had no other significant intra-abdominal abnormalities. Currently on a combination of Rocephin and Zithromax. 01/18/2022, the patient remains on the same treatment. The patient is on DuoNeb neb regimens [id number] and the patient is also on examination Rocephin and Zithromax. Still having coughing spells which are quite extensive. There is improvement compared to yesterday. Note that the viral screen was negative. The patient had a negative COVID 19 testing. Influenza A and B were also negative.RSV was negative. Legionella urine antigen was also negative. The pro calcitonin level was 0.26. 01/19/2022, I'm seeing the patient for a follow-up. The patient is doing well and slightly improved compared to yesterday. The chest exit findings are essentially unchanged and stable since yesterday. Meanwhile, the sputum cultures turner machine to a possible Haemophilus influenza. The patient remains on examination Rocephin and Zithromax. Cough has subsided and the patient is on a termination of DuoNeb neb regimens [id number] and IV Solu Medrol 60 mg every 6 hours. No fever. No chills. No other new complaints otherwise for now. 01/20 2022, the patient is slightly improving. As mentioned earlier, the patient is documented to have Haemophilus influenza pneumonia and the patient had a follow-up chest x-ray that showed a residual infiltration in the lung bases although stable. Clinically she is improving. Her cough is subsiding. She is on bronchodilators patient on a combination of Rocephin and Zithromax and she is also on IV Solu-Medrol. She has developed some mild oropharyngeal thrush. She is also having IV fluids with normal saline at the rate of 75 mL an hour. 01/21/2022, the patient continues to improve. On room air oxygen, pulse ox 94%. No chest pain. Cough has subsided. No pleurisy. No hemoptysis. She has Haemophilus influenza pneumonia. Electrodes are renal function is abnormal and the patient is ambulating pH is using incentive spirometer. She was given nystatin for thrush and this is also improving. Objective - Vital Signs Vital signs: Vital Signs Temp 98 F 01/21/22 03:18 Pulse 88 01/21/22 08:23 Resp 18 01/21/22 03:18 BP 124/56 01/21/22 03:18 Pulse Ox 94 L 01/21/22 03:18 FiO2 Intake & Output 01/20/22 01/21/22 01/21/22 18:59 06:59 18:59 Intake Total 460 120 Balance 460 120 Intake: IV 160 Sodium Chloride 0.9% 1, 160 000 ml @ 50 mls/hr IV . Q20H [facility] Rx#:[id number] Intake, IV Titration 300 Amount Azithromycin 500 mg In 250 Sodium Chloride 0.9% 250 ml @ 250 mls/hr IVPB DAILY [facility] Rx#:[id number] cefTRIAXone 1 gm In 50 Sodium Chloride 0.9% 50 ml @ 100 mls/hr IVPB Q24HR [facility] Rx#:[id number] Oral 120 Other: Voiding Method Toilet Toilet # Voids 1 - Exam Calm and comfortable and the patient is currently on oxygen at 3 L, breathing is nonlabored. The patient is having frequent episodes of cough Head exam was generally normal. There was no scleral icterus or corneal arcus. Mucous membranes were moist. Neck was supple and without jugular venous distension, thyromegaly, or carotid bruits. Carotids were easily palpable bilaterally. There was no adenopathy. Lungs sounds are diminished and the patient has some limited active limited expiratory wheezes bilaterally Cardiac exam revealed the PMI to be normally situated and sized. The rhythm was regular and no extrasystoles were noted during several minutes of auscultation. The first and second heart sounds were normal and physiologic splitting of the second heart sound was noted. There were no murmurs, rubs, clicks, or gallops. Abdominal exam revealed normal bowel sounds. The abdomen was soft, non-tender, and without masses, organomegaly, or appreciable enlargement of the abdominal aorta. Examination of the extremities revealed easily palpable radial, femoral and pedal pulses. There was no cyanosis, clubbing or edema. Examination of the skin revealed no evidence of significant rashes, suspicious appearing nevi or other concerning lesions. Neurologically, the patient is awake and alert and the patient does not have any focal neurological deficit. Cranial nerves are essentially intact. - Labs CBC & Chem 7: 01/20/22 07:43 01/21/22 08:03 Labs: Abnormal Lab Results - Last 24 Hours (Table) 01/20/22 01/20/22 01/20/22 Range/Units 07:43 07:43 19:21 WBC 17.05 H (4.50-10.00) X 10*3/uL MCHC 31.3 L (32.0-37.0) g/dL Absolute Nucleated RBC 0.03 H (0.00-0.00) X 10*3/uL Immature Gran # 0.85 H (0.00-0.04) X 10*3/uL Neutrophils # 14.74 H (1.80-7.70) X 10*3/uL Eosinophils # 0 L (0.04-0.35) X 10*3/uL Basophils # 0.11 H (0.00-0.10) X 10*3/uL NRBC/100 WBC Diff 0.2 H (0.0-0.0) /100 WBCS Sodium (137-145) mmol/L Potassium (3.5-5.1) mmol/L BUN (7-17) mg/dL BUN/Creatinine Ratio 25.38 H (12.00-20.00) Ratio Glucose 163 H (70-110) mg/dL POC Glucose (mg/dL) 264 H (70-110) mg/dL 01/20/22 01/21/22 01/21/22 Range/Units 23:01 05:55 08:03 WBC (4.50-10.00) X 10*3/uL MCHC (32.0-37.0) g/dL Absolute Nucleated RBC (0.00-0.00) X 10*3/uL Immature Gran # (0.00-0.04) X 10*3/uL Neutrophils # (1.80-7.70) X 10*3/uL Eosinophils # (0.04-0.35) X 10*3/uL Basophils # (0.00-0.10) X 10*3/uL NRBC/100 WBC Diff (0.0-0.0) /100 WBCS Sodium 136 L (137-145) mmol/L Potassium 3.1 L (3.5-5.1) mmol/L BUN 25 H (7-17) mg/dL BUN/Creatinine Ratio (12.00-20.00) Ratio Glucose 136 H (70-110) mg/dL POC Glucose (mg/dL) 267 H 200 H (70-110) mg/dL Microbiology - Last 24 Hours (Table) 01/17/22 15:58 Blood Culture - Preliminary Blood No Growth after 72 hours 01/17/22 16:00 Blood Culture - Preliminary Blood No Growth after 72 hours Assessment and Plan Plan: Bilateral lower lobe pneumonia, subacute, failed outpatient treatment, coming in for inpatient therapy, currently being treated on an inpatient basis with broad- spectrum antibiotics and steroids. Limited improvement since yesterday. Chest exit findings are stable, yet clinically, the patient is improving. Less short of breath and less coughing compared to yesterday. The culture was positive for Haemophilus influenza consistent with Haemophilus influenza pneumonia. Acute hypoxic respiratory failure improved and the patient is currently on room air Shortness of breath secondary to above, improving and the cough is also subsidin g Hypertension Mild intermittent bronchial asthma possibly with some exacerbation secondary to above Hyperlipidemia Impaired hearing History of GI bleed related to duodenitis and gastritis and the patient is also known to have hiatal hernia Oropharyngeal candidiasis Plan Clinically improving We'll need another day of inpatient therapy with IV antibiotics Repeat chest x-ray in the morning Using incentive spirometer and the patient is currently on room air oxygen Chest x-ray findings are stable Continue Rocephin and Zithromax Continued IV Solu-Medrol Continue nystatin swish and swallow Continue promethazine for cough possible discharge in a.m.
[2022-01-21] MEDS ORDERED: Potassium Replacement Protocol 1 EACH MISC MISCELLANE PRN (11:24)
[2022-01-21 11:29] LABS: Glucose,Whole Blood 195 mg/dL (70-110)
[2022-01-21] MEDS: amLODIPine 10 MG TAB PO SCH (12:03)
--- NOTE | 2022-01-21 13:37 | P.PN ---
Subjective Progress Note Date: 01/21/22 PROGRESS NOTE The patient was admitted with progressive dyspnea, was diagnosed with H. influenzae pneumonia. She had an episode of atrial fibrillation but she converted to sinus and maintained sinus. She is feeling better overall, her breathing is better, she denies any dizziness or palpitations. She had an echocardiogram that showed moderate aortic regurgitation with normal systolic function. She has no dizziness, palpitations or syncope. Medications: Amlodipine 10 mg daily, hydrochlorothiazide 25 mg daily, lisinopril 20 mg twice a day, metoprolol 50 mg twice a day,Xarelto 20 mg daily PHYSICAL EXAMINATION: Blood pressure 120-150 systolic heart rate 80 LUNGS: Few crackles HEART: Regular rate and rhythm, S1, S2. No S3. systolic ejection murmur with diastolic murmur at the base ABDOMEN: Soft, nontender, no organomegaly EXTREMETIES: No edema LAB: Potassium 3.1, BUN 25, creatinine 0.77 IMPRESSION: 1. Influenza pneumonia 2. Paroxysmal atrial fibrillation, her score is 3 3. Moderate aortic regurgitation 4. Hypertension PLAN: 1. Replace potassium 2. Increase physical activity 3. Follow blood pressure 4. Depending on her progress probable discharged home soon and follow-up with Kimmy Berg Objective - Vital Signs Vital signs: Vital Signs Temp 97.2 F L 01/21/22 13:02 Pulse 88 01/21/22 13:02 Resp 18 01/21/22 13:02 BP 150/70 01/21/22 13:02 Pulse Ox 93 L 01/21/22 13:02 FiO2 Intake & Output 01/20/22 01/21/22 01/21/22 18:59 06:59 18:59 Intake Total 460 120 Balance 460 120 Intake: IV 160 Sodium Chloride 0.9% 1, 160 000 ml @ 50 mls/hr IV . Q20H [facility] Rx#:[id number] Intake, IV Titration 300 Amount Azithromycin 500 mg In 250 Sodium Chloride 0.9% 250 ml @ 250 mls/hr IVPB DAILY [facility] Rx#:[id number] cefTRIAXone 1 gm In 50 Sodium Chloride 0.9% 50 ml @ 100 mls/hr IVPB Q24HR [facility] Rx#:[id number] Oral 120 Other: Voiding Method Toilet Toilet Toilet # Voids 1 - Labs CBC & Chem 7: 01/20/22 07:43 01/21/22 08:03 Labs: Abnormal Lab Results - Last 24 Hours (Table) 01/20/22 01/20/22 01/21/22 Range/Units 19:21 23:01 05:55 Sodium (137-145) mmol/L Potassium (3.5-5.1) mmol/L BUN (7-17) mg/dL Glucose (74-99) mg/dL POC Glucose (mg/dL) 264 H 267 H 200 H (70-110) mg/dL 01/21/22 01/21/22 Range/Units 08:03 11:26 Sodium 136 L (137-145) mmol/L Potassium 3.1 L (3.5-5.1) mmol/L BUN 25 H (7-17) mg/dL Glucose 136 H (74-99) mg/dL POC Glucose (mg/dL) 195 H (70-110) mg/dL Microbiology - Last 24 Hours (Table) 01/17/22 15:58 Blood Culture - Preliminary Blood No Growth after 72 hours 01/17/22 16:00 Blood Culture - Preliminary Blood No Growth after 72 hours
--- NOTE | 2022-01-21 16:26 | P.PN ---
Subjective Progress Note Date: 01/21/22 This is a 71 year old female who was recently admitted with extensive bilateral pneumonia with asthma exacerbation and is being closely monitored. Patient had increasing heart rate with afib rvr and placed on IV cardizem and anticoagulation with cardiology consulted. Patient currently on IV steroids, IV abx, and breathing inhalational treatments. Recommend continued telemetry and cardiology working on medication adjustments. Patient is afebrile and denies worsening shortness of breath and currently on room air. Patient continues with extreme cough and having some lower right quadrant pain possible a muscle strain as her cough is frequent and intense. Patient guarding site with cough. 01/21/2022 Patient seen in follow up today and breathing somewhat improved. Patient continues with coughing spells and exertional dyspnea at times. Right lower abdominal pain somewhat improved and less guarding with cough. Patient reports dull ache. Patient is afebrile and continued on high dose IV steroids and abx and will continue. Cardiology evaluated as well and would like to follow in the outpatient setting. Patient currently rate controlled and on xarelto. Patient denies chest pain or palpitations. Review of systems: Constitutional: No reports of fatigue, fever, or chills Cardiovascular: No reports of chest pain or palpitations Respiratory: No reports of shortness of breath or cough GI: reports of nausea, no reports of of vomiting, reports lower right abdominal pain with cough with slight improvement : No reports of dysuria or retention Neurovascular: no reports of generalized weakness All medications have been reviewed Active Medications Acetaminophen (Acetaminophen Tab 325 Mg Tab) 650 mg PO Q6HR PRN PRN Reason: Mild Pain or Fever > 100.5 Hydrocodone Bitart/Acetaminophen (Hydrocodone/Apap 5-325mg 1 Each Tab) 1 each PO Q4HR PRN PRN Reason: Moderate Pain Albuterol/Ipratropium (Ipratropium-Albuterol 3 Ml Neb) 3 ml INHALATION RT-QID [facility] Last Admin: 01/21/22 15:21 Dose: 3 ml Albuterol/Ipratropium (Ipratropium-Albuterol 3 Ml Neb) 3 ml INHALATION RT-QID PRN PRN Reason: Shortness Of Breath Or Wheezing Amlodipine Besylate (Amlodipine 10 Mg Tab) 10 mg PO DAILY@1200 [facility] Last Admin: 01/21/22 12:03 Dose: 10 mg Budesonide (Budesonide 1 Mg/2 Ml Nebu) 1 mg INHALATION RT-BID [facility] Last Admin: 01/21/22 08:05 Dose: 1 mg Guaifenesin (Guaifenesin 600 Mg Tablet.Er) 1,200 mg PO Q12HR [facility] Last Admin: 01/21/22 08:39 Dose: 1,200 mg Hydrochlorothiazide (Hydrochlorothiazide 25 Mg Tab) 25 mg PO DAILY [facility] Last Admin: 01/21/22 08:39 Dose: 25 mg Ceftriaxone Sodium 1 gm/ (Sodium Chloride) 50 mls @ 100 mls/hr IVPB Q24HR [facility]; Protocol Last Admin: 01/21/22 08:40 Dose: 100 mls/hr Insulin Aspart (Insulin Aspart (Novolog) 100 Unit/Ml Vial) 0 unit SQ ACHS [facility]; Protocol Last Admin: 01/21/22 12:04 Dose: 5 unit Lisinopril (Lisinopril 20 Mg Tab) 20 mg PO BID [facility] Last Admin: 01/21/22 08:39 Dose: 20 mg Methylprednisolone Sodium Succinate (Methylprednisolone Sod Succi 125 Mg/2 Ml Vial) 60 mg IV Q6HR [facility] Last Admin: 01/21/22 12:04 Dose: 60 mg Metoprolol Tartrate (Metoprolol Tartrate 50 Mg Tab) 50 mg PO BID [facility] Last Admin: 01/21/22 08:39 Dose: 50 mg Miscellaneous Information (Pneumonia Protocol Utilized 1 Each Misc) 1 each PO ONCE PRN PRN Reason: Per Protocol Miscellaneous Information (Magnesium Replacement Protocol 1 Each Misc) 1 each MISCELLANE DAILY PRN; Protocol PRN Reason: Per Protocol Miscellaneous Information (Potassium Replacement Protocol 1 Each Misc) 1 each MISCELLANE DAILY PRN; Protocol PRN Reason: Per Protocol Montelukast Sodium (Montelukast 10 Mg Tab) 10 mg PO HS [facility] Last Admin: 01/20/22 20:53 Dose: 10 mg Naloxone HCl (Naloxone 0.4 Mg/Ml 1 Ml Vial) 0.2 mg IV Q2M PRN PRN Reason: Opioid Reversal Nystatin (Nystatin 100,000 Unit/Ml Susp 500,000 Unit/5 Ml Cup) 500,000 unit PO QID [facility]; Protocol Last Admin: 01/21/22 12:03 Dose: 500,000 unit Oxycodone/Acetaminophen (Oxycodone-Apap 5-325mg 1 Each Tab) 1 each PO Q4HR PRN PRN Reason: Severe Pain Potassium Chloride (Potassium Chloride Er 20 Meq Tab.Er) 20 meq PO DAILY [facility] Last Admin: 01/21/22 08:39 Dose: 20 meq Promethazine HCl (Promethazine 25 Mg Tab) 12.5 mg PO Q6HR PRN PRN Reason: Cough Last Admin: 01/19/22 09:38 Dose: 12.5 mg Rivaroxaban (Rivaroxaban 20 Mg Tab) 20 mg PO W/SUPPER [facility]; Protocol Last Admin: 01/20/22 16:56 Dose: 20 mg PHYSICAL EXAMINATION: GENERAL: The patient is alert and oriented x4, Well developed, well nourished. HEENT: PERRLA. EOMI. no scleral icterus. No conjunctival pallor. Normocephalic, atraumatic. No pharyngeal erythema. No thyromegaly. CARDIOVASCULAR: S1 and S2 muffled PULMONARY: diminished breath sounds bilaterally with course rhonchi and some wheezing noted. Bronchospastic on exam ABDOMEN: soft. less tender on exam of the right lower quadrant. non-distended, normoactive bowel sounds. No palpable organomegaly. MUSCULOSKELETAL: No joint swelling or deformity. EXTREMITIES: No cyanosis, clubbing, or pedal edema. NEUROLOGICAL: Gross neurological examination did not reveal any focal deficits. SKIN: No rashes. Assessment: Acute bilateral pneumonia with failure of outpatient treatment hemophillus influenza on sputum culture Asthma, acute exacerbation paroxysmal atrial fibrillation, new onset GERD Hypertension Hyperlipidemia Multiple medical issues GI prophylaxis DVT prophylaxis Full code Plan: Recommend to continue with current medications and management with pulmonary and cardiology services. Patient continued on telemetry and sinus rhythm and on xarelto and cardiology following. Currently rate controlled at this time. Patient is continued on breathing treatments, IV abx, and IV steroids and will continue. Patient now on room air and maintaining oxygen above 90%. Patient with continued bronchospasms and having continued coarse cough with some lower right quadrant pain and will monitor closely and encouraged pillow use with coughing. Encouraged increase activity as tolerated. Recommend continue with incentive spirometer use at least 10 times every hour while awake and also patient will also recommend accuchecks achs and sliding scale for elevated blood sugars likely steroid effect. Follow up chest xray and labs in am. Due to multiple medical issues, prognosis is guarded. The impression and plan of care has been dictated by Gale Zamora, nurse practitioner as directed. MD Guille I have performed a history and examination and MDM of this patient, discussed the same with the dictator, and agree with the dictator's assessment and plan as written ,documented as a scribe. Based on total visit time, I have performed more than 50% of the visit. Any additional findings or plans will be noted. Objective - Vital Signs Vital signs: Vital Signs Temp 97.2 F L 01/21/22 13:02 Pulse 88 01/21/22 15:31 Resp 16 01/21/22 15:31 BP 150/70 01/21/22 13:02 Pulse Ox 93 L 01/21/22 13:02 FiO2 Intake & Output 01/20/22 01/21/22 01/21/22 18:59 06:59 18:59 Intake Total 460 600 Balance 460 600 Intake: IV 160 Sodium Chloride 0.9% 1, 160 000 ml @ 50 mls/hr IV . Q20H [facility] Rx#:[id number] Intake, IV Titration 300 Amount Azithromycin 500 mg In 250 Sodium Chloride 0.9% 250 ml @ 250 mls/hr IVPB DAILY [facility] Rx#:[id number] cefTRIAXone 1 gm In 50 Sodium Chloride 0.9% 50 ml @ 100 mls/hr IVPB Q24HR [facility] Rx#:[id number] Oral 600 Other: Voiding Method Toilet Toilet Toilet # Voids 1 - Labs CBC & Chem 7: 01/20/22 07:43 01/21/22 08:03 Labs: Abnormal Lab Results - Last 24 Hours (Table) 01/20/22 01/20/22 01/21/22 Range/Units 19:21 23:01 05:55 Sodium (137-145) mmol/L Potassium (3.5-5.1) mmol/L BUN (7-17) mg/dL Glucose (74-99) mg/dL POC Glucose (mg/dL) 264 H 267 H 200 H (70-110) mg/dL 01/21/22 01/21/22 Range/Units 08:03 11:26 Sodium 136 L (137-145) mmol/L Potassium 3.1 L (3.5-5.1) mmol/L BUN 25 H (7-17) mg/dL Glucose 136 H (74-99) mg/dL POC Glucose (mg/dL) 195 H (70-110) mg/dL Microbiology - Last 24 Hours (Table) 01/17/22 15:58 Blood Culture - Preliminary Blood No Growth after 72 hours 01/17/22 16:00 Blood Culture - Preliminary Blood No Growth after 72 hours
[2022-01-21 16:27] LABS: Glucose,Whole Blood 200 mg/dL (70-110)
[2022-01-21] MEDS: RIVAROXABAN 20 MG TAB PO SCH (16:56)
[2022-01-21 20:19] LABS: Glucose,Whole Blood 207 mg/dL (70-110)
[2022-01-21] MEDS: MONTELUKAST 10 MG TAB PO SCH (20:59)
[2022-01-22] MEDS: methylPREDNISolone SOD SUCCI 125 MG/2 ML VIAL IV SCH ×2 (00:01→06:25)
[2022-01-22] MEDS: PROMETHAZINE 25 MG TAB PO PRN ×2 (01:21→20:55)
[2022-01-22 06:02] LABS: Glucose,Whole Blood 207 mg/dL (70-110)
[2022-01-22 06:21] LABS: African American GFR (CKD) >90 (>60 ml/min/1.73 sqM); Anion Gap 6 mmol/L; Blood Urea Nitrogen 28 mg/dL (7-17); Calcium 8.1 mg/dL (8.4-10.2); Carbon Dioxide 26 mmol/L (22-30); Chloride 103 mmol/L (98-107); Glucose 199 mg/dL (74-99); Non-African American GFR(CKD) 90 (>60 ml/min/1.73 sqM); Sodium 135 mmol/L (137-145)
[2022-01-22] MEDS: INSULIN ASPART (NovoLOG) 100 UNIT/ML VIAL SQ SCH ×4 (06:25→20:55)
[2022-01-22 06:29] LABS: Potassium 3.8 mmol/L (3.5-5.1)
[2022-01-22] MEDS: BUDESONIDE 1 MG/2 ML NEBU INHALATION SCH ×2 (07:43→18:27)
[2022-01-22] MEDS: IPRATROPIUM-ALBUTEROL 3 ML NEB INHALATION SCH ×4 (07:43→18:27)
--- NOTE | 2022-01-22 07:56 | XR ---
EXAMINATION TYPE: XR chest 2V DATE OF EXAM: 01/22/2022 6:39 AM COMPARISON: Chest radiographs from 01/19/2022 TECHNIQUE: XR chest 2V Frontal and lateral views of the chest. CLINICAL INDICATION:Female, 71 years old with history of Fu pneumonia; FINDINGS: Lungs/Pleura: Similar Small basilar airspace opacities with blunting of the costophrenic angles. No p neumothorax. Pulmonary vascularity: Unremarkable. Heart/mediastinum: Cardiomediastinal silhouette is unremarkable. Musculoskeletal: No acute osseous pathology. IMPRESSION: Stable exam, Bibasilar infiltrates and small pleural effusions. Correlate for atelectasis or pneumoni a
--- NOTE | 2022-01-22 08:48 | P.PN ---
Subjective The patient is a 71-year-old female with a history of hypertension, history of aortic valve disease with aortic regurgitation. She follows with Dr. Berg. Shepresented with progressive cough and fatigue for 2 weeks, was treated as an outpatient for pneumonia but because of the persistent symptoms was admitted. We are following the patient for atrial fibrillation. Patient admitted with pneumonia. Patient went into atrial fibrillation and spontaneously convered to sinus mechanism. 01/22/2022 Patient seen and examined at bedside, no acute distress. Patient's shortness of breath has improved. She had increased cough overnight. She denies any chest pain, palpitations, lightheadedness or dizziness. Vital signs are stable. Maintaining oxygen saturations 95% on room air Echocardiogram revealed EF 55-60%, moderate aortic regurgitation, mild mitral and tricuspid regurgitation. PHYSICAL EXAMINATION Vitals: Reviewed Head: Normocephalic. Eyes: Sclerae nonicteric. Neck: Good carotid upstroke, no bruit, no jugular venous distention. Lungs: Bilateral rhonchi with no wheezes Heart: Regular rate and rhythm, S1-S2, no S3, no rub. Systolic ejection murmur with a diastolic murmur at the base murmur. Abdomen: Soft nontender, positive bowel sounds no organomegaly. Extremities: No edema, intact distal pulses. ASSESSMENT Pneumonia with Haemophilus influenza Paroxysmal atrial fibrillation, her CHADS2-VASC2 score is 3, maintaining sinus mechanism History of aortic valve regurgitation Hypertension PLAN Continue Xarelto 20mg nightly Continue metoprolol tartrate 50mg BID Continue amlodipine and hydrochlorothiazide. Increase activity as tolerated Patient is stable from a cardiology perspective Follow up outpatient with Dr. Berg Nurse practitioner note has been reviewed by physician. Signing provider agrees with the documented findings, assessment, and plan of care. Objective - Vital Signs Vital signs: Vital Signs Temp 97.2 F L 01/21/22 13:02 Pulse 88 01/21/22 15:31 Resp 16 01/21/22 15:31 BP 150/70 01/21/22 13:02 Pulse Ox 93 L 01/21/22 13:02 FiO2 Intake & Output 01/20/22 01/21/22 01/21/22 18:59 06:59 18:59 Intake Total 460 600 Balance 460 600 Intake: IV 160 Sodium Chloride 0.9% 1, 160 000 ml @ 50 mls/hr IV . Q20H [facility] Rx#:[id number] Intake, IV Titration 300 Amount Azithromycin 500 mg In 250 Sodium Chloride 0.9% 250 ml @ 250 mls/hr IVPB DAILY [facility] Rx#:[id number] cefTRIAXone 1 gm In 50 Sodium Chloride 0.9% 50 ml @ 100 mls/hr IVPB Q24HR [facility] Rx#:[id number] Oral 600 Other: Voiding Method Toilet Toilet Toilet # Voids 1 - Labs CBC & Chem 7: 01/20/22 07:43 01/22/22 05:05 Labs: Abnormal Lab Results - Last 24 Hours (Table) 01/20/22 01/20/22 01/21/22 Range/Units 19:21 23:01 05:55 Sodium (137-145) mmol/L Potassium (3.5-5.1) mmol/L BUN (7-17) mg/dL Glucose (74-99) mg/dL POC Glucose (mg/dL) 264 H 267 H 200 H (70-110) mg/dL 01/21/22 01/21/22 01/21/22 Range/Units 08:03 11:26 16:23 Sodium 136 L (137-145) mmol/L Potassium 3.1 L (3.5-5.1) mmol/L BUN 25 H (7-17) mg/dL Glucose 136 H (74-99) mg/dL POC Glucose (mg/dL) 195 H 200 H (70-110) mg/dL Microbiology - Last 24 Hours (Table) 01/17/22 15:58 Blood Culture - Preliminary Blood No Growth after 72 hours 01/17/22 16:00 Blood Culture - Preliminary Blood No Growth after 72 hours
[2022-01-22] MEDS: NYSTATIN 100,000 UNIT/ML SUSP 500,000 UNIT/5 ML CUP PO SCH ×4 (08:52→20:54)
[2022-01-22] MEDS: lisinopriL 20 MG TAB PO SCH ×2 (08:52→20:54)
[2022-01-22] MEDS: POTASSIUM CHLORIDE ER 20 MEQ TAB.ER PO SCH (08:53)
[2022-01-22] MEDS: METOPROLOL TARTRATE 50 MG TAB PO SCH ×2 (08:53→20:54)
[2022-01-22] MEDS: guaiFENesin 600 MG TABLET.ER PO SCH ×2 (08:53→20:54)
[2022-01-22] MEDS: hydroCHLOROthiazide 25 MG TAB PO SCH (08:53)
[2022-01-22 11:45] LABS: Glucose,Whole Blood 197 mg/dL (70-110)
[2022-01-22] MEDS: amLODIPine 10 MG TAB PO SCH (12:27)
--- NOTE | 2022-01-22 12:36 | P.PN ---
Subjective Progress Note Date: 01/22/22 This is a 71 year old female who was recently admitted with extensive bilateral pneumonia with asthma exacerbation and is being closely monitored. Patient had increasing heart rate with afib rvr and placed on IV cardizem and anticoagulation with cardiology consulted. Patient currently on IV steroids, IV abx, and breathing inhalational treatments. Recommend continued telemetry and cardiology working on medication adjustments. Patient is afebrile and denies worsening shortness of breath and currently on room air. Patient continues with extreme cough and having some lower right quadrant pain possible a muscle strain as her cough is frequent and intense. Patient guarding site with cough. 01/21/2022 Patient seen in follow up today and breathing somewhat improved. Patient continues with coughing spells and exertional dyspnea at times. Right lower abdominal pain somewhat improved and less guarding with cough. Patient reports dull ache. Patient is afebrile and continued on high dose IV steroids and abx and will continue. Cardiology evaluated as well and would like to follow in the outpatient setting. Patient currently rate controlled and on xarelto. Patient denies chest pain or palpitations. 01/22/2022 Patient evaluated today and pulmonary and cardiology following. Patient is currently rate controlled and maintained on metoprolol and xarelto and will need outpatient cardiology follow up. Chest xray ordered for today. Potassium is improved at 3.8 today and recommend to continue daily supplement. Patient blood sugars elevated and IV steroids being titrated down. Patient is afebrile and continues with a cough. Patient denies chest pain or palpitations. Patient denies worsening shortness of breath. Review of systems: Constitutional: No reports of fatigue, fever, or chills Cardiovascular: No reports of chest pain or palpitations Respiratory: No reports of shortness of breath or cough GI: reports of nausea, no reports of of vomiting, reports lower right abdominal pain with cough with slight improvement : No reports of dysuria or retention Neurovascular: no reports of generalized weakness All medications have been reviewed Active Medications Acetaminophen (Acetaminophen Tab 325 Mg Tab) 650 mg PO Q6HR PRN PRN Reason: Mild Pain or Fever > 100.5 Hydrocodone Bitart/Acetaminophen (Hydrocodone/Apap 5-325mg 1 Each Tab) 1 each PO Q4HR PRN PRN Reason: Moderate Pain Albuterol/Ipratropium (Ipratropium-Albuterol 3 Ml Neb) 3 ml INHALATION RT-QID [facility] Last Admin: 01/22/22 11:09 Dose: 3 ml Albuterol/Ipratropium (Ipratropium-Albuterol 3 Ml Neb) 3 ml INHALATION RT-QID PRN PRN Reason: Shortness Of Breath Or Wheezing Amlodipine Besylate (Amlodipine 10 Mg Tab) 10 mg PO DAILY@1200 [facility] Last Admin: 01/22/22 12:27 Dose: 10 mg Budesonide (Budesonide 1 Mg/2 Ml Nebu) 1 mg INHALATION RT-BID [facility] Last Admin: 01/22/22 07:43 Dose: 1 mg Guaifenesin (Guaifenesin 600 Mg Tablet.Er) 1,200 mg PO Q12HR [facility] Last Admin: 01/22/22 08:53 Dose: 1,200 mg Hydrochlorothiazide (Hydrochlorothiazide 25 Mg Tab) 25 mg PO DAILY [facility] Last Admin: 01/22/22 08:53 Dose: 25 mg Ceftriaxone Sodium 1 gm/ (Sodium Chloride) 50 mls @ 100 mls/hr IVPB Q24HR [facility]; Protocol Last Admin: 01/22/22 08:52 Dose: 100 mls/hr Insulin Aspart (Insulin Aspart (Novolog) 100 Unit/Ml Vial) 0 unit SQ ACHS [facility]; Protocol Last Admin: 01/22/22 12:28 Dose: 5 unit Lisinopril (Lisinopril 20 Mg Tab) 20 mg PO BID [facility] Last Admin: 01/22/22 08:52 Dose: 20 mg Methylprednisolone Sodium Succinate (Methylprednisolone Sod Succi 40 Mg/Ml 1 Ml Vial) 40 mg IV Q12HR [facility] Metoprolol Tartrate (Metoprolol Tartrate 50 Mg Tab) 50 mg PO BID [facility] Last Admin: 01/22/22 08:53 Dose: 50 mg Miscellaneous Information (Pneumonia Protocol Utilized 1 Each Misc) 1 each PO ONCE PRN PRN Reason: Per Protocol Miscellaneous Information (Magnesium Replacement Protocol 1 Each Misc) 1 each MISCELLANE DAILY PRN; Protocol PRN Reason: Per Protocol Miscellaneous Information (Potassium Replacement Protocol 1 Each Misc) 1 each MISCELLANE DAILY PRN; Protocol PRN Reason: Per Protocol Montelukast Sodium (Montelukast 10 Mg Tab) 10 mg PO HS [facility] Last Admin: 01/21/22 20:59 Dose: 10 mg Naloxone HCl (Naloxone 0.4 Mg/Ml 1 Ml Vial) 0.2 mg IV Q2M PRN PRN Reason: Opioid Reversal Nystatin (Nystatin 100,000 Unit/Ml Susp 500,000 Unit/5 Ml Cup) 500,000 unit PO QID [facility]; Protocol Last Admin: 01/22/22 12:27 Dose: 500,000 unit Oxycodone/Acetaminophen (Oxycodone-Apap 5-325mg 1 Each Tab) 1 each PO Q4HR PRN PRN Reason: Severe Pain Potassium Chloride (Potassium Chloride Er 20 Meq Tab.Er) 20 meq PO DAILY [facility] Last Admin: 01/22/22 08:53 Dose: 20 meq Promethazine HCl (Promethazine 25 Mg Tab) 12.5 mg PO Q6HR PRN PRN Reason: Cough Last Admin: 01/22/22 01:21 Dose: 12.5 mg Rivaroxaban (Rivaroxaban 20 Mg Tab) 20 mg PO W/SUPPER [facility]; Protocol Last Admin: 01/21/22 16:56 Dose: 20 mg PHYSICAL EXAMINATION: GENERAL: The patient is alert and oriented x4, Well developed, well nourished. HEENT: PERRLA. EOMI. no scleral icterus. No conjunctival pallor. Normocephalic, atraumatic. No pharyngeal erythema. No thyromegaly. CARDIOVASCULAR: S1 and S2 muffled PULMONARY: diminished breath sounds bilaterally with course rhonchi and less wheezing noted. somewhat Bronchospastic on exam ABDOMEN: soft. less tender on exam of the right lower quadrant. non-distended, normoactive bowel sounds. No palpable organomegaly. MUSCULOSKELETAL: No joint swelling or deformity. EXTREMITIES: No cyanosis, clubbing, or pedal edema. NEUROLOGICAL: Gross neurological examination did not reveal any focal deficits. SKIN: No rashes. Assessment: Acute bilateral pneumonia with failure of outpatient treatment hemophillus influenza on sputum culture Asthma, acute exacerbation paroxysmal atrial fibrillation, new onset GERD Hypertension Hyperlipidemia Multiple medical issues GI prophylaxis DVT prophylaxis Full code Plan: Recommend to continue with current medications and management with pulmonary and cardiology services. Patient continued on telemetry and sinus rhythm and on xarelto and cardiology following. Currently rate controlled at this time. Patient is continued on breathing treatments, IV abx, and IV steroids and will continue. Titrate the dose of IV steroids to 40mg bid. Patient now on room air and maintaining oxygen above 90%. Patient with continued bronchospasms and havin g continued coarse cough with some lower right quadrant pain and will monitor closely and encouraged pillow use with coughing. Encouraged increase activity as tolerated. Recommend continue with incentive spirometer use at least 10 times every hour while awake. and recommend accuchecks achs and sliding scale for elevated blood sugars likely steroid effect. Follow up chest xray shows bibasilar infiltrates and pleural effusions otherwise stable . Due to multiple medical issues, prognosis is guarded. Recommend monitoring closely overnight with possible discharge in 24 hours. The impression and plan of care has been dictated as a scribe by Gale Zamora, nurse practitioner as directed. MD Guille I have performed a history and examination and MDM of this patient, discussed the same with the dictator, and has been documented as a scribe. Based on total visit time, I have performed more than 50% of the visit. Any additional findings or plans will be noted. Objective - Vital Signs Vital signs: Vital Signs Temp 96.4 F L 01/22/22 08:49 Pulse 91 01/22/22 10:16 Resp 18 01/22/22 10:16 BP 157/72 01/22/22 08:49 Pulse Ox 95 01/22/22 08:49 FiO2 Intake & Output 01/21/22 01/22/22 01/22/22 18:59 06:59 18:59 Intake Total 990 400 Balance 990 400 Intake: IV 160 Sodium Chloride 0.9% 1, 160 000 ml @ 50 mls/hr IV . Q20H [facility] Rx#:[id number] Intake, IV Titration 50 Amount cefTRIAXone 1 gm In 50 Sodium Chloride 0.9% 50 ml @ 100 mls/hr IVPB Q24HR [facility] Rx#:[id number] Oral 780 400 Other: Voiding Method Toilet Toilet Toilet # Voids 1 - Labs CBC & Chem 7: 01/20/22 07:43 01/22/22 05:05 Labs: Abnormal Lab Results - Last 24 Hours (Table) 01/20/22 01/21/22 01/21/22 Range/Units 07:43 11:26 16:23 Sodium (137-145) mmol/L Potassium (3.5-5.1) mmol/L BUN (7-17) mg/dL Glucose (74-99) mg/dL POC Glucose (mg/dL) 195 H 200 H (70-110) mg/dL Calcium (8.4-10.2) mg/dL TSH 0.092 L (0.350-5.500) uIU/mL 01/21/22 01/21/22 01/22/22 Range/Units 18:23 20:18 05:05 Sodium 135 L (137-145) mmol/L Potassium 3.3 L (3.5-5.1) mmol/L BUN 28 H (7-17) mg/dL Glucose 199 H (74-99) mg/dL POC Glucose (mg/dL) 207 H (70-110) mg/dL Calcium 8.1 L (8.4-10.2) mg/dL TSH (0.350-5.500) uIU/mL 01/22/22 Range/Units 06:01 Sodium (137-145) mmol/L Potassium (3.5-5.1) mmol/L BUN (7-17) mg/dL Glucose (74-99) mg/dL POC Glucose (mg/dL) 207 H (70-110) mg/dL Calcium (8.4-10.2) mg/dL TSH (0.350-5.500) uIU/mL Microbiology - Last 24 Hours (Table) 01/17/22 15:58 Blood Culture - Preliminary Blood No Growth after 96 hours 01/17/22 16:00 Blood Culture - Preliminary Blood No Growth after 96 hours
--- NOTE | 2022-01-22 13:21 | P.PN ---
Subjective Progress Note Date: 01/22/22 72-year-old female patient with mild intermittent bronchial asthma, maintained only on albuterol rescue inhaler on an as-needed basis, presented to the hospital because of persistent pneumonia, failing outpatient treatment . The patient was symptomatic approximately 4 weeks ago. She was having increased cough, congestion, some mucus production and shortness of breath. She was initially given doxycycline by the primary care and she ended up having a rash. Subsequently the antibiotics was switched to another antibiotic and the patient was given 2 rounds of steroid taper. She continued to be symptomatic and for that reason she ended up presenting to the hospital. She has not been vaccinated for COVID 19. No hemoptysis. No pleurisy. No fever. No recurrent pneumonias. She can't recall a child with episodes of pneumonia without any complications. CAT scan of the chest showed some airspace disease along bases bilaterally. Patient was hospitalized and the patient is currently on a co mbination of Rocephin and Zithromax. Her white cell count of 14.4 with a hemoglobin of 14.5. Coagulation profile is within normal. Electrodes are all within normal limits. LFTs were normal with elevated and ultrasound the gallbladder was done and showed some gallstones. No evidence of any acute cholecystitis. The patient was found to have numerous gallstones with some hepatomegaly. Biliary duct with essentially within normal limits. CAT scan of the chest showed airspace disease in lung bases bilaterally. No suspicious pulmonary masses. The patient had no other significant intra-abdominal abnormalities. Currently on a combination of Rocephin and Zithromax. 01/18/2022, the patient remains on the same treatment. The patient is on DuoNeb neb regimens [id number] and the patient is also on examination Rocephin and Zithromax. Still having coughing spells which are quite extensive. There is improvement compared to yesterday. Note that the viral screen was negative. The patient had a negative COVID 19 testing. Influenza A and B were also negative.RSV was negative. Legionella urine antigen was also negative. The pro calcitonin level was 0.26. 01/19/2022, I'm seeing the patient for a follow-up. The patient is doing well and slightly improved compared to yesterday. The chest exit findings are essentially unchanged and stable since yesterday. Meanwhile, the sputum cultures cross tie turner to a possible Haemophilus influenza. The patient remains on examination Rocephin and Zithromax. Cough has subsided and the patient is on a termination of DuoNeb neb regimens [id number] and IV Solu Medrol 60 mg every 6 hours. No fever. No chills. No other new complaints otherwise for now. 01/20 2022, the patient is slightly improving. As mentioned earlier, the patient is documented to have Haemophilus influenza pneumonia and the patient had a follow-up chest x-ray that showed a residual infiltration in the lung bases although stable. Clinically she is improving. Her cough is subsiding. She is on bronchodilators patient on a combination of Rocephin and Zithromax and she is also on IV Solu-Medrol. She has developed some mild oropharyngeal thrush. She is also having IV fluids with normal saline at the rate of 75 mL an hour. 01/21/2022, the patient continues to improve. On room air oxygen, pulse ox 94%. No chest pain. Cough has subsided. No pleurisy. No hemoptysis. She has Haemophilus influenza pneumonia. Electrodes are renal function is abnormal and the patient is ambulating pH is using incentive spirometer. She was given nystatin for thrush and this is also improving. 01/22/2022, patient is stable overnight. Some increased coughing. A chest x- ray still showing stable bilateral lower lobe pulmonary infiltrates without any interval worsening. Clinically however, the patient on room air oxygen. No chest pain. No altered mentation. She has Haemophilus influenza pneumonia and the patient is currently antibiotics. No altered mentation. No chest pain. No other significant events otherwise for now. Overall, the patient is improving. She is on room air oxygen. She remains on IV Rocephin. She remains on IV Solu Medrol which I'm going to taper. On her blood work, the patient's sodium level is at 135 with a potassium level of 3.8, BUN is 28 and creatinine 0.8. Objective - Vital Signs Vital signs: Vital Signs Temp 96.4 F L 01/22/22 08:49 Pulse 82 01/22/22 12:35 Resp 18 01/22/22 12:35 BP 123/64 01/22/22 12:35 Pulse Ox 94 L 01/22/22 12:35 FiO2 Intake & Output 01/21/22 01/22/22 01/22/22 18:59 06:59 18:59 Intake Total 990 400 Balance 990 400 Intake: IV 160 Sodium Chloride 0.9% 1, 160 000 ml @ 50 mls/hr IV . Q20H [facility] Rx#:[id number] Intake, IV Titration 50 Amount cefTRIAXone 1 gm In 50 Sodium Chloride 0.9% 50 ml @ 100 mls/hr IVPB Q24HR [facility] Rx#:[id number] Oral 780 400 Other: Voiding Method Toilet Toilet Toilet # Voids 1 - Exam Calm and comfortable and the patient is currently on room air oxygen, breathing is nonlabored. The patient is having frequent episodes of cough Head exam was generally normal. There was no scleral icterus or corneal arcus. Mucous membranes were moist. Neck was supple and without jugular venous distension, thyromegaly, or carotid bruits. Carotids were easily palpable bilaterally. There was no adenopathy. Lungs sounds are diminished and the patient has some limited active limited expiratory wheezes bilaterally Cardiac exam revealed the PMI to be normally situated and sized. The rhythm was regular and no extrasystoles were noted during several minutes of auscultation. The first and second heart sounds were normal and physiologic splitting of the second heart sound was noted. There were no murmurs, rubs, clicks, or gallops. Abdominal exam revealed normal bowel sounds. The abdomen was soft, non-tender, and without masses, organomegaly, or appreciable enlargement of the abdominal aorta. Examination of the extremities revealed easily palpable radial, femoral and pedal pulses. There was no cyanosis, clubbing or edema. Examination of the skin revealed no evidence of significant rashes, suspicious appearing nevi or other concerning lesions. Neurologically, the patient is awake and alert and the patient does not have any focal neurological deficit. Cranial nerves are essentially intact. - Labs CBC & Chem 7: 01/20/22 07:43 01/22/22 05:05 Labs: Abnormal Lab Results - Last 24 Hours (Table) 01/20/22 01/21/22 01/21/22 Range/Units 07:43 16:23 18:23 Sodium (137-145) mmol/L Potassium 3.3 L (3.5-5.1) mmol/L BUN (7-17) mg/dL Glucose (74-99) mg/dL POC Glucose (mg/dL) 200 H (70-110) mg/dL Calcium (8.4-10.2) mg/dL TSH 0.092 L (0.350-5.500) uIU/mL 01/21/22 01/22/22 01/22/22 Range/Units 20:18 05:05 06:01 Sodium 135 L (137-145) mmol/L Potassium (3.5-5.1) mmol/L BUN 28 H (7-17) mg/dL Glucose 199 H (74-99) mg/dL POC Glucose (mg/dL) 207 H 207 H (70-110) mg/dL Calcium 8.1 L (8.4-10.2) mg/dL TSH (0.350-5.500) uIU/mL 01/22/22 Range/Units 11:43 Sodium (137-145) mmol/L Potassium (3.5-5.1) mmol/L BUN (7-17) mg/dL Glucose (74-99) mg/dL POC Glucose (mg/dL) 197 H (70-110) mg/dL Calcium (8.4-10.2) mg/dL TSH (0.350-5.500) uIU/mL Microbiology - Last 24 Hours (Table) 01/17/22 15:58 Blood Culture - Preliminary Blood No Growth after 96 hours 01/17/22 16:00 Blood Culture - Preliminary Blood No Growth after 96 hours Assessment and Plan Plan: Bilateral lower lobe pneumonia, subacute, failed outpatient treatment, coming in for inpatient therapy, clinically improving and the patient is on room air oxygen. I may be some leg in the chest x-ray findings. Overall, cough and shortness of breath has subsided oxidation is improved. Cultures is positive for Haemophilus influenza. Acute hypoxic respiratory failure improved and the patient is currently on room air Shortness of breath secondary to above, improving and the cough is also subsiding Hypertension Mild intermittent bronchial asthma possibly with some exacerbation secondary to above Hyperlipidemia Impaired hearing History of GI bleed related to duodenitis and gastritis and the patient is also known to have hiatal hernia Oropharyngeal candidiasis Plan Clinically improving We'll need another day of inpatient therapy with IV antibiotics Using incentive spirometer and the patient is currently on room air oxygen Chest x-ray findings are stable Continue Rocephin and Zithromax Continued IV Solu-Medrol and the dose will be tapered down to 40 mg every 12 hours Continue nystatin swish and swallow and this will be continued Continue promethazine for cough possible discharge within next 24-48 hours
[2022-01-22 16:23] LABS: Glucose,Whole Blood 159 mg/dL (70-110)
[2022-01-22] MEDS: RIVAROXABAN 20 MG TAB PO SCH (16:53)
[2022-01-22 20:30] LABS: Glucose,Whole Blood 154 mg/dL (70-110)
[2022-01-22] MEDS: methylPREDNISolone SOD SUCCI 40 MG/ML 1 ML VIAL IV SCH (20:54)
[2022-01-22] MEDS: MONTELUKAST 10 MG TAB PO SCH (20:54)
[2022-01-23 06:21] LABS: Glucose,Whole Blood 183 mg/dL (70-110)
[2022-01-23] MEDS: INSULIN ASPART (NovoLOG) 100 UNIT/ML VIAL SQ SCH ×2 (06:30→12:40)
[2022-01-23] MEDS: BUDESONIDE 1 MG/2 ML NEBU INHALATION SCH (08:07)
[2022-01-23] MEDS: IPRATROPIUM-ALBUTEROL 3 ML NEB INHALATION SCH ×3 (08:08→15:49)
[2022-01-23] MEDS: hydroCHLOROthiazide 25 MG TAB PO SCH (09:44)
[2022-01-23] MEDS: guaiFENesin 600 MG TABLET.ER PO SCH (09:44)
[2022-01-23] MEDS: lisinopriL 20 MG TAB PO SCH (09:44)
[2022-01-23] MEDS: NYSTATIN 100,000 UNIT/ML SUSP 500,000 UNIT/5 ML CUP PO SCH ×2 (09:45→14:33)
[2022-01-23] MEDS: methylPREDNISolone SOD SUCCI 40 MG/ML 1 ML VIAL IV SCH (09:46)
[2022-01-23] MEDS: POTASSIUM CHLORIDE ER 20 MEQ TAB.ER PO SCH (10:33)
[2022-01-23] MEDS: METOPROLOL TARTRATE 50 MG TAB PO SCH (10:33)
[2022-01-23 11:52] LABS: Glucose,Whole Blood 139 mg/dL (70-110)
[2022-01-23] MEDS: amLODIPine 10 MG TAB PO SCH (12:41)
[2022-01-23 13:07] LABS: Basophils # (A) 0.1 k/uL (0-0.2); Basophils % (A) 1 %; Eosinophils % (A) 0 %; HCT 38.6 % (34.0-46.0); HGB 13.3 gm/dL (11.4-16.0); Lymphocytes # (A) 0.6 k/uL (1.0-4.8); Lymphocytes % (A) 3 %; MCH 30.6 pg (25.0-35.0); MCHC 34.5 g/dL (31.0-37.0); MCV 88.6 fL (80.0-100.0); Mean Platelet Volume 9.4; Monocytes # (A) 0.5 k/uL (0-1.0); Monocytes % (A) 3 %; Neutrophils # (A) 15.5 k/uL (1.3-7.7); Neutrophils % (A) 93 %; Platelet Count 279 k/uL (150-450); RBC 4.35 m/uL (3.80-5.40); RDW 13.6 % (11.5-15.5); WBC 16.7 k/uL (3.8-10.6)
[2022-01-23 13:20] LABS: African American GFR (CKD) >90 (>60 ml/min/1.73 sqM); Anion Gap 6 mmol/L; Blood Urea Nitrogen 31 mg/dL (7-17); Carbon Dioxide 27 mmol/L (22-30); Chloride 102 mmol/L (98-107); Glucose 153 mg/dL (74-99); Non-African American GFR(CKD) 85 (>60 ml/min/1.73 sqM); Potassium 3.5 mmol/L (3.5-5.1); Sodium 135 mmol/L (137-145)
[2022-01-23 14:42] VITALS: BP 136/72; TEMP 98.4
--- NOTE | 2022-01-23 15:21 | P.PN ---
Subjective Progress Note Date: 01/23/22 Principal diagnosis: Acute hypoxic respiratory failure secondary to acute community-acquired pneumonia and acute exacerbation of mild intermittent asthma 72-year-old female patient with mild intermittent bronchial asthma, maintained only on albuterol rescue inhaler on an as-needed basis, presented to the hospital because of persistent pneumonia, failing outpatient treatment . The patient was symptomatic approximately 4 weeks ago. She was having increased cough, congestion, some mucus production and shortness of breath. She was initially given doxycycline by the primary care and she ended up having a rash. Subsequently the antibiotics was switched to another antibiotic and the patient was given 2 rounds of steroid taper. She continued to be symptomatic and for that reason she ended up presenting to the hospital. She has not been vaccinated for COVID 19. No hemoptysis. No pleurisy. No fever. No recurrent pneumonias. She can't recall a child with episodes of pneumonia without any complications. CAT scan of the chest showed some airspace disease along bases bilaterally. Patient was hospitalized and the patient is currently on a combination of Rocephin and Zithromax. Her white cell count of 14.4 with a hemoglobin of 14.5. Coagulation profile is within normal. Electrodes are all within normal limits. LFTs were normal with elevated and ultrasound the gallbladder was done and showed some gallstones. No evidence of any acute cholecystitis. The patient was found to have numerous gallstones with some hepatomegaly. Biliary duct with essentially within normal limits. CAT scan of the chest showed airspace disease in lung bases bilaterally. No suspicious pulmonary masses. The patient had no other significant intra-abdominal abnormalities. Currently on a combination of Rocephin and Zithromax. 01/22/2022, patient is stable overnight. Some increased coughing. A chest x- ray still showing stable bilateral lower lobe pulmonary infiltrates without any interval worsening. Clinically however, the patient on room air oxygen. No chest pain. No altered mentation. She has Haemophilus influenza pneumonia and the patient is currently antibiotics. No altered mentation. No chest pain. No other significant events otherwise for now. Overall, the patient is improving. She is on room air oxygen. She remains on IV Rocephin. She remains on IV Solu Medrol which I'm going to taper. On her blood work, the patient's sodium level is at 135 with a potassium level of 3.8, BUN is 28 and creatinine 0.8. Reevaluated today on 01/23/2022, patient is improving, but not back to baseline. Patient is being treated for Haemophilus influenza pneumonia, remains on antibiotics, she is also on bronchodilators for acute exacerbation of asthma patient is also on steroids. Overall the patient is improving steadily but not back to her baseline. She is on room air with O2 sat showed 98%. WBC count of 16.7 hemoglobin 13.3 electrolytes are normal renal profile is normal, chest x- ray showed bibasilar infiltrates and small pleural effusions Objective - Vital Signs Vital signs: Vital Signs Temp 98.4 F 01/23/22 14:41 Pulse 72 01/23/22 14:41 Resp 18 01/23/22 14:41 BP 136/72 01/23/22 14:41 Pulse Ox 98 01/23/22 14:41 FiO2 Intake & Output 01/22/22 01/23/22 01/23/22 18:59 06:59 18:59 Other: Voiding Method Toilet Toilet Toilet # Voids 1 1 - Exam Physical Exam: Revealed a 71-year-old female in no distress. Head: Atraumatic, normocephalic. HEENT:[Neck is supple.] [No neck masses.] [No thyromegaly.] [No JVD.] Chest: [Crackles and rhonchi noted bilaterally symmetrical chest expansion. Cardiac Exam: [Normal S1 and S2, no S3 gallop, no murmur.] Abdomen: [Soft, nontender, no megaly, no rebound, no guarding, normal bowel sounds.] Extremities: [No clubbing, no edema, no cyanosis.] Neurological Exam: [No focal neurologic deficit.] Alert and oriented 3. Psychiatric: Normal mood affect and normal mental status examination. Skin: No rashes - Labs CBC & Chem 7: 01/23/22 11:24 01/23/22 11:24 Labs: Abnormal Lab Results - Last 24 Hours (Table) 01/22/22 01/22/22 01/23/22 Range/Units 16:21 20:16 06:05 WBC (3.8-10.6) k/uL Neutrophils # (1.3-7.7) k/uL Lymphocytes # (1.0-4.8) k/uL Sodium (137-145) mmol/L BUN (7-17) mg/dL Glucose (74-99) mg/dL POC Glucose (mg/dL) 159 H 154 H 183 H (70-110) mg/dL Calcium (8.4-10.2) mg/dL 01/23/22 01/23/22 01/23/22 Range/Units 11:24 11:24 11:50 WBC 16.7 H (3.8-10.6) k/uL Neutrophils # 15.5 H (1.3-7.7) k/uL Lymphocytes # 0.6 L (1.0-4.8) k/uL Sodium 135 L (137-145) mmol/L BUN 31 H (7-17) mg/dL Glucose 153 H (74-99) mg/dL POC Glucose (mg/dL) 139 H (70-110) mg/dL Calcium 8.0 L (8.4-10.2) mg/dL Microbiology - Last 24 Hours (Table) 01/17/22 15:58 Blood Culture - Preliminary Blood No Growth after 120 hours 01/17/22 16:00 Blood Culture - Preliminary Blood No Growth after 120 hours Assessment and Plan Assessment: Impression: Acute hypoxic respiratory failure, improved, patient is now on room air, respiratory failure is secondary to acute Haemophilus influenza pneumonia and acute exacerbation of mild intermittent asthma. Benign essential hypertension Acute exacerbation of mild intermittent bronchial asthma Dyslipidemia History of GI bleeding secondary to duodenitis/gastritis and history of hiatal hernia Oropharyngeal candidiasis. Recommendation: Continue antibiotics. Continue bronchodilators. Continue steroids, Continue nystatin Consider discharge planning in the next 24 hours. We will continue to follow Time with Patient: Less than 30
[2022-01-23 15:55] VITALS: PULSE 84; RESP 14
[2022-01-24] MEDS ORDERED: predniSONE 20 MG TAB PO SCH (09:00)
--- NOTE | 2022-01-24 09:48 | P.DS ---
Providers Date of admission: 01/16/22 21:52 Expected date of discharge: 01/23/22 Attending physician: Christi Mckeon Consults: 01/16/22 21:14 Consult Physician Urgent Consulting Provider: Kush Burrows Consult Reason/Comments: asthma exacerbation and possible PNA Do you want consulting provider notified?: Yes 01/19/22 18:19 Consult Physician Routine Consulting Provider: [facility] Consult Reason/Comments: elevated heart rate Do you want consulting provider notified?: Yes Primary care physician: Rohith Bedolla Hospital Course: Final diagnosis Acute bilateral pneumonia with failure of outpatient treatment hemophillus influenza on sputum culture Asthma, acute exacerbation paroxysmal atrial fibrillation, new onset GERD Hypertension Hyperlipidemia Multiple medical issues GI prophylaxis DVT prophylaxis Full code Discharge disposition Patient is being discharged in a stable condition with guarded prognosis to home. Patient will follow-up with Dr. Bedolla in the outpatient setting upon discharge. Patient is to also follow-up with pulmonary Dr. Burrows and cardiology as scheduled. Patient will continue on several to oh along with a prednisone taper, breathing inhalational treatments and a short course of oral Ceftin to complete the course. Total time taken is greater than 35 minutes. Hospital course This is a 71-year-old female who was recently admitted with extensive bilateral pneumonia with a asthma exacerbation and being closely monitored. Patient reports to feeling outpatient for the last month with this progressive cough and not getting better. Patient was started on IV steroids along with breathing inhalational treatments and continued on IV antibiotics. Patient also started on supplemental oxygen support and is currently on room air not requiring any oxygen. Patient had an episode of increased heart rate and found to be in atrial fibrillation with RVR and was evaluated by cardiology. Patient was started on Xarelto and currently rate controlled and will continue current medications with close outpatient follow-up with pulmonary along with cardiology as discussed and scheduled. Patient will continue with breathing inhalational treatments along with a prednisone taper and some cough syrup for at night and also continue with Mucinex and oral Ceftin for the next few days to complete the course. Patient encouraged to follow-up with primary care provider Dr. Bedolla and follow-up with some repeat labs. Patient did have some elevated blood sugars and discussed with case management about obtaining a glucometer and encourage the patient to test blood sugars 4 times daily and keep a diary for primary care follow-up. May have a diabetic component or possibly secondary to steroid-induced hyperglycemia. Currently no reports of chest pain, worsening shortness of breath, or palpitations. Patient is afebrile. No reports of nausea or vomiting and patient is tolerating diet. Patient will be discharged home today. A copy of this dictation will be sent to primary care provider Dr. Bedolla. On exam vital signs are stable. Cardio S1, S2 are muffled. Respiratory system shows diminished breath sounds at the bases with no wheezing or rhonchi noted. Abdomen is soft and nontender. Nervous system shows no focal deficits. Please refer to medication reconciliation sheet for a list of medications. The impression and plan of care has been dictated by Gale Zamora, Nurse Practitioner as directed. Dr. Mike MD I have performed a history and examination and MDM of this patient, discussed t he same with the dictator, and agree with the dictator's assessment and plan as written ,documented as a scribe. Based on total visit time, I have performed more than 50% of the visit. Patient Condition at Discharge: Stable Plan - Discharge Summary Discharge Rx Participant: Yes New Discharge Prescriptions: New Rivaroxaban [Xarelto] 20 mg PO W/SUPPER #30 tab Ipratropium-Albuterol Nebulize [Duoneb 0.5 mg-3 mg/3 ml Soln] 3 ml INHALATION RT-QID PRN 30 Days #120 each PRN Reason: Shortness Of Breath Or Wheezing Potassium Chloride ER [K-Dur 20] 20 meq PO DAILY 30 Days #30 tab Metoprolol Tartrate [Lopressor] 50 mg PO BID 30 Days #60 tab Nystatin 100,000 Unit/ml Susp [Mycostatin Oral Susp] 500,000 unit PO QID 5 Days #100 ml Budesonide [Pulmicort] 1 mg INHALATION RT-BID 30 Days #60 each Montelukast [Singulair] 10 mg PO HS #30 tab Budesonide-Formot 160-4.5 Mcg [Symbicort 160-4.5 Mcg Inhaler] 2 puff INHALATION BID 30 Days #1 each cefUROXime axetiL [Ceftin] 500 mg PO BID 5 Days #10 tab Ipratropium-Albuterol Nebulize [Duoneb 0.5 mg-3 mg/3 ml Soln] 3 ml INHALATION RT-QID each guaiFENesin [Mucinex] 1,200 mg PO Q12HR #30 tab Promethazine [Phenergan] 12.5 mg PO Q6HR PRN #10 tab PRN Reason: Cough predniSONE 10 mg PO DIRECTED #30 tab Acetaminophen Tab [Tylenol] 650 mg PO Q6HR PRN tab PRN Reason: Mild Pain Or Fever > 100.5 Continue Albuterol Sulfate [Proair Hfa] 1 puff INHALATION RT-Q4H PRN PRN Reason: Shortness Of Breath amLODIPine [Norvasc] 10 mg PO DAILY@1200 lisinopriL [Zestril] 20 mg PO BID hydroCHLOROthiazide 25 mg PO DAILY Fluticasone Furoate [Arnuity Ellipta] 1 puff INHALATION RT-DAILY Albuterol Nebulized [Ventolin Nebulized] 2.5 mg INHALATION RT-QID Discontinued Metoprolol Succinate [Metoprolol Succinate ER] 25 mg PO DAILY@1200 Discharge Medication List Albuterol Sulfate [Proair Hfa] 1 puff INHALATION RT-Q4H PRN 06/28/17 [History] Albuterol Nebulized [Ventolin Nebulized] 2.5 mg INHALATION RT-QID 01/17/22 [History] Fluticasone Furoate [Arnuity Ellipta] 1 puff INHALATION RT-DAILY 01/17/22 [History] amLODIPine [Norvasc] 10 mg PO DAILY@1200 01/17/22 [History] hydroCHLOROthiazide 25 mg PO DAILY 01/17/22 [History] lisinopriL [Zestril] 20 mg PO BID 01/17/22 [History] Rivaroxaban [Xarelto] 20 mg PO W/SUPPER #30 tab 01/22/22 [Rx] Acetaminophen Tab [Tylenol] 650 mg PO Q6HR PRN tab 01/23/22 [Rx] Budesonide [Pulmicort] 1 mg INHALATION RT-BID 30 Days #60 each 01/23/22 [Rx] Budesonide-Formot 160-4.5 Mcg [Symbicort 160-4.5 Mcg Inhaler] 2 puff INHALATION BID 30 Days #1 each 01/23/22 [Rx] Ipratropium-Albuterol Nebulize [Duoneb 0.5 mg-3 mg/3 ml Soln] 3 ml INHALATION RT-QID each 01/23/22 [Rx] Ipratropium-Albuterol Nebulize [Duoneb 0.5 mg-3 mg/3 ml Soln] 3 ml INHALATION RT-QID PRN 30 Days #120 each 01/23/22 [Rx] Metoprolol Tartrate [Lopressor] 50 mg PO BID 30 Days #60 tab 01/23/22 [Rx] Montelukast [Singulair] 10 mg PO HS #30 tab 01/23/22 [Rx] Nystatin 100,000 Unit/ml Susp [Mycostatin Oral Susp] 500,000 unit PO QID 5 Days #100 ml 01/23/22 [Rx] Potassium Chloride ER [K-Dur 20] 20 meq PO DAILY 30 Days #30 tab 01/23/22 [Rx] Promethazine [Phenergan] 12.5 mg PO Q6HR PRN #10 tab 01/23/22 [Rx] cefUROXime axetiL [Ceftin] 500 mg PO BID 5 Days #10 tab 01/23/22 [Rx] guaiFENesin [Mucinex] 1,200 mg PO Q12HR #30 tab 01/23/22 [Rx] predniSONE 10 mg PO DIRECTED #30 tab 01/23/22 [Rx] Follow up Appointment(s)/Referral(s): Rohith Bedolla MD [Primary Care Provider] - 1-2 days (Saturday, January 26 9:00) Feroz Berg MD [STAFF PHYSICIAN] - (February 06, 3:45 at [facility] location) Kush Burrows MD [STAFF PHYSICIAN] - 1 Week (February 12, 10:00) Ambulatory/Diagnostic Orders: Complete Blood Count w/diff [LAB.AMB] Time Frame: 3 Days, Location: None Selected Patient Instructions/Handouts: Asthma (DC), Pneumonia (DC) Activity/Diet/Wound Care/Special Instructions: Activity Limited until follow-up Continue with breathing inhalational treatments and steroid taper Continue to monitor blood sugar and keep a diary for primary care follow-up readings Continue using incentive spirometer at least 10 times every hour while awake Discharge Disposition: HOME SELF-CARE
== END 2022-01-23 16:25 | disposition home or self-care (01) | DRG 193 ==
LOC: EC 11:44 → 4SSUR 21:52 → 3SCARD 01-19 21:30
PROVIDERS: ADMIT Hospitalist; ATTEND Hospitalist
DX: J14 Pneumonia due to Hemophilus influenzae (principal); J96.01 Acute respiratory failure with hypoxia; J45.21 Mild intermittent asthma with (acute) exacerbation; J98.11 Atelectasis; K21.9 Gastro-esophageal reflux disease without esophagitis; Z20.822 Contact with and (suspected) exposure to COVID-19; Z28.310 Unvaccinated for COVID-19; K80.20 Calculus of gallbladder without cholecystitis without obstruction; I48.0 Paroxysmal atrial fibrillation; R16.0 Hepatomegaly, not elsewhere classified; E78.5 Hyperlipidemia, unspecified; H91.90 Unspecified hearing loss, unspecified ear; M19.90 Unspecified osteoarthritis, unspecified site; I10 Essential (primary) hypertension; I35.1 Nonrheumatic aortic (valve) insufficiency; R21 Rash and other nonspecific skin eruption; Z28.21 Immunization not carried out because of patient refusal; Z79.82 Long term (current) use of aspirin; Z79.899 Other long term (current) drug therapy; Z80.0 Family history of malignant neoplasm of digestive organs; Z82.49 Family history of ischemic heart disease and other diseases of the circulatory system; Z87.19 Personal history of other diseases of the digestive system; Z88.1 Allergy status to other antibiotic agents; Z88.0 Allergy status to penicillin
CPT/HCPCS: 36415; 71046; 71260; 74160; 76705; 80048; 80053; 82150; 83605; 83690; 83735; 83880; 84132; 84145; 84439; 84443; 84484; 85025; 85610; 85730; 87040; 87070; 87205; 87449; 87502; 87634; 93005; 93306; 94640; 94760; 96361; 96365; 96366; 96367; 96375; 99285

== ENCOUNTER → 2023-10-30 | Outpatient (CLI) | payer OTHER ==
--- NOTE | 2023-10-30 12:28 | XR ---
EXAMINATION TYPE: XR chest 2V DATE OF EXAM: 10/30/2023 COMPARISON: 03/12/2022 HISTORY: Chest pain TECHNIQUE: Frontal and lateral views of the chest are obtained. FINDINGS: There is no focal air space opacity. No evidence for pneumothorax. No pleural effusion. The cardiac silhouette size is within normal limits. The osseous structures are grossly intact. IMPRESSION: 1. No acute cardiopulmonary process.
== END | disposition home or self-care (01) ==
LOC: RADXRMAIN 12:09
PROVIDERS: ATTEND Family Medicine
DX: J44.1 Chronic obstructive pulmonary disease with (acute) exacerbation (principal); R07.9 Chest pain, unspecified
CPT/HCPCS: 71046